=== PATIENT | male | born 1940 | race Caucasian/White ===

== ENCOUNTER 2020-07-20 | Outpatient (REF) | payer MEDICARE, OTHER, SELFPAY | END 2020-07-20 00:01 | disposition home or self-care (01) | LOC: HO.HMGCLNP | PROVIDERS: Visit Provider Internal Medicine | DX: R30.0 Dysuria (principal) | CPT/HCPCS: 87086 ==

== ENCOUNTER 2020-07-31 13:26 | Outpatient (REF) | payer MEDICARE, OTHER, SELFPAY | END 2020-07-31 13:27 | disposition home or self-care (01) | LOC: HO.HMGCLNP 13:26 | PROVIDERS: Visit Provider Internal Medicine | DX: R35.0 Frequency of micturition (principal); R30.0 Dysuria | CPT/HCPCS: 87086; 87088; 87186 ==

== ENCOUNTER 2020-08-09 08:56 | Outpatient (REF) | payer MEDICARE, OTHER, SELFPAY ==
--- NOTE | 2020-08-09 08:59 | US_ITS ---
EXAMINATION: US RETROPERITONEAL COMPLETE (RENAL) CLINICAL INFORMATION: Question air in urine stream, PVR. COMPARISON: CT abdomen and pelvis 07/02/2011. TECHNIQUE: Real-time imaging of the kidneys and bladder. FINDINGS: RIGHT KIDNEY: 12.4 x 6.0 x 6.3 cm (SAG x AP x TRV). The kidney is normal in size, contour, and echogenicity. Renal cortical thickness is normal. There are multiple right renal cysts, largest measuring 9.1 x 7.8 x 8.3 cm in the upper pole. No renal calculi or hydronephrosis. LEFT KIDNEY: 11.9 x 5.7 x 6.5 cm (SAG x AP x TRV). The kidney is normal in size, contour, and echogenicity. Renal cortical thickness is normal. There are 2 left renal cysts. The largest measures 8.7 x 6.9 x 8.1 cm in the lower pole. There is a 1.0 cm cyst in the midpole. No renal calculi or hydronephrosis. BLADDER: The bladder wall is diffusely thickened and trabeculated. There are multiple echogenic reflectors seen in the lumen of the bladder suggestive of debris. Bilateral ureteral jets are demonstrated. Prevoid bladder volume is 138 mL. Postvoid bladder volume is 58.7 mL. The prostate gland is enlarged. The prostate gland measures 5.3 x 5.1 x 4.7 cm. Prostate volume 66.1 mL. US/US retroperitoneal comp IMPRESSION: 1. Multiple bilateral renal cysts, right greater than left. 2. Diffusely thickened trabeculated bladder wall. Mobile echogenic reflectors in the bladder questionable for mobile echogenic debris. No stone or mass seen. 59 mL postvoid bladder residual. Enlarged prostate gland.
== END 2020-08-09 08:57 | disposition home or self-care (01) ==
LOC: HO.HMGCX 08:56
PROVIDERS: PCP Internal Medicine; Visit Provider Internal Medicine
DX: R39.89 Other symptoms and signs involving the genitourinary system (principal); N28.89 Other specified disorders of kidney and ureter
CPT/HCPCS: 76770

== ENCOUNTER 2020-08-10 15:19 | Outpatient (REF) | payer MEDICARE, OTHER, SELFPAY ==
[2020-08-10 16:42] LABS: Glucose Urine UA NEG (NEG); Leukocyte Esterase Urine 1+ (NEG); Nitrite Urine NEG (NEG); PH 5.5 (5.0-8.0); Specific Gravity - Urine >= 1.030 (1.005-1.025); Urine Blood 3+ (NEG); Urine Ketones NEG (NEG); Urine Protein 1+ MG/DL (NEG-TRACE)
[2020-08-10 16:48] LABS: Appearance Urine TURBID; Color Urine YELLOW
[2020-08-10 17:11] LABS: Bacteria Urine 3+ /LPF; Squamous Epithelial Cell Urine TRACE /LPF; Uric Acid Crystals Urine 1+ /LPF
== END 2020-08-10 15:20 | disposition home or self-care (01) ==
LOC: HO.HMGCLNP 15:19
PROVIDERS: Visit Provider Internal Medicine
DX: N39.0 Urinary tract infection, site not specified (principal)
CPT/HCPCS: 81001; 87086

== ENCOUNTER 2021-06-08 13:19 | Outpatient (REF) | payer MEDICARE, OTHER, SELFPAY ==
[2021-06-08 16:25] LABS: MANUAL DIFF FLAG NO
[2021-06-08 16:26] LABS: Basophils Absolute Auto 0.1 X10*3/uL (0.0-0.2); Basophils Percent Auto 0.5 % (0-2); Eosinophils Absolute Auto 0.1 X10*3/uL (0.0-0.4); Eosinophils Percent Auto 1.4 % (0-4); Hematocrit 40.9 % (42.0-52.0); Hemoglobin 13.3 g/dl (14.0-18.0); Imm Gran Abs Auto 0.03 X10*3/uL (0.00-0.03); Imm Gran Pct Auto 0.3 % (0.0-0.4); Lymphocytes Absolute Auto 1.4 X10*3/uL (1.2-4.9); Lymphocytes Percent Auto 14.9 % (20-40); Mean Corpuscular HGB Conc 32.5 g/dl (31.0-36.0); Mean Corpuscular Hemoglobin 30.4 pg (27.0-33.0); Mean Corpuscular Volume 93.4 fL (80.0-98.0); Mean Platelet Volume 9.9 fL (9.4-12.4); Monocytes Absolute Auto 0.7 X10*3/uL (0.1-1.2); Monocytes Percent Auto 7.4 % (2-11); Neutrophils Absolute Auto 6.9 x10*3/uL (2.0-8.3); Neutrophils Percent Auto 75.5 % (45-73); Platelet Count 290 X10*3/uL (160-400); Red Blood Count 4.38 X10*6/uL (4.60-5.80); Red Cell Distribution Width 13.7 % (11.0-16.0); White Blood Count 9.1 X10*3/uL (4.8-10.8)
[2021-06-08 16:44] LABS: Alanine Aminotransferase 15 U/L (0-40); Albumin Level 4.3 g/dL (3.5-5.0); Alkaline Phosphatase 85 U/L (39-117); Anion Gap 13 (12-20); Aspartate Amino Transferase 15 U/L (5-37); Bilirubin Total 0.3 mg/dL (0.0-1.0); Blood Urea Nitrogen 17 mg/dL (9-16); Calcium 10.7 mg/dL (8.4-10.2); Carbon Dioxide 25 mmol/L (22-29); Chloride 107 mmol/L (96-108); Cholesterol 213 mg/dL; Estimated Average Glucose 108 mg/dL; Estimated Glomerular Filt Rate 41; Glucose Fasting 93 mg/dL (60-99); HDL Cholesterol 42 mg/dL; Hemoglobin A1c % 5.4 %; LDL Cholesterol Calculated 120 mg/dl; Potassium 4.7 mmol/L (3.3-5.1); Sodium 140 mmol/L (135-145); Total Protein 6.9 g/dL (6.5-8.0); Triglycerides 255 mg/dL
[2021-06-08 17:15] LABS: Prostate Specific Antigen 7.97 ng/mL (<0.05-4.0)
== END 2021-06-08 13:20 | disposition home or self-care (01) ==
LOC: HO.HMGCLDS 13:19
PROVIDERS: PCP Internal Medicine; Visit Provider Internal Medicine
DX: Z12.5 Encounter for screening for malignant neoplasm of prostate (principal); R53.83 Other fatigue; E78.00 Pure hypercholesterolemia, unspecified
CPT/HCPCS: 36415; 80053; 80061; 83036; 84153; 85025

== ENCOUNTER → 2021-11-16 09:43 | Outpatient (BNVA) | payer MEDICARE, OTHER, SELFPAY | PROVIDERS: PCP Internal Medicine; Visit Provider Internal Medicine | DX: R82.71 Bacteriuria (principal) | CPT/HCPCS: 99202 ==

== ENCOUNTER 2022-04-08 10:04 | Outpatient (REF) | payer MEDICARE, OTHER, SELFPAY ==
[2022-04-08 11:17] LABS: MANUAL DIFF FLAG NO
[2022-04-08 11:34] LABS: Basophils Percent Auto 0.6 % (0-2); Eosinophils Absolute Auto 0.2 X10*3/uL (0.0-0.4); Eosinophils Percent Auto 2.4 % (0-4); Hematocrit 39.6 % (42.0-52.0); Hemoglobin 12.9 g/dl (14.0-18.0); Imm Gran Abs Auto 0.03 X10*3/uL (0.00-0.03); Imm Gran Pct Auto 0.4 % (0.0-0.4); Lymphocytes Absolute Auto 1.4 X10*3/uL (1.2-4.9); Lymphocytes Percent Auto 20.1 % (20-40); Mean Corpuscular HGB Conc 32.6 g/dl (31.0-36.0); Mean Corpuscular Hemoglobin 29.8 pg (27.0-33.0); Mean Corpuscular Volume 91.5 fL (80.0-98.0); Mean Platelet Volume 9.5 fL (9.4-12.4); Monocytes Absolute Auto 0.4 X10*3/uL (0.1-1.2); Monocytes Percent Auto 5.9 % (2-11); Neutrophils Percent Auto 70.6 % (45-73); Platelet Count 338 X10*3/uL (160-400); Red Blood Count 4.33 X10*6/uL (4.60-5.80); Red Cell Distribution Width 13.4 % (11.0-16.0); White Blood Count 7.1 X10*3/uL (4.8-10.8)
[2022-04-08 12:07] LABS: Alanine Aminotransferase 11 U/L (0-40); Albumin Level 4.1 g/dL (3.5-5.0); Alkaline Phosphatase 71 U/L (39-117); Anion Gap 14 (12-20); Aspartate Amino Transferase 12 U/L (5-37); Bilirubin Total 0.4 mg/dL (0.0-1.0); Blood Urea Nitrogen 15 mg/dL (9-16); Carbon Dioxide 23 mmol/L (22-29); Chloride 106 mmol/L (96-108); Cholesterol 193 mg/dL; Estimated Glomerular Filt Rate 51; Glucose Fasting 113 mg/dL (60-99); HDL Cholesterol 45 mg/dL; LDL Cholesterol Calculated 126 mg/dl; Potassium 4.3 mmol/L (3.3-5.1); Sodium 139 mmol/L (135-145); Total Protein 6.7 g/dL (6.5-8.0); Triglycerides 114 mg/dL
[2022-04-08 12:28] LABS: Calcium 10.5 mg/dL (8.4-10.2)
[2022-04-08 12:30] LABS: Prostate Specific Antigen 4.86 ng/mL (<0.05-4.0)
== END 2022-04-08 10:05 | disposition home or self-care (01) ==
LOC: HO.HMGCLDS 10:04
PROVIDERS: PCP Internal Medicine; Visit Provider Internal Medicine
DX: Z12.5 Encounter for screening for malignant neoplasm of prostate (principal); R53.83 Other fatigue; E78.00 Pure hypercholesterolemia, unspecified; D64.9 Anemia, unspecified; R97.20 Elevated prostate specific antigen [PSA]
CPT/HCPCS: 36415; 80053; 80061; 84153; 85025

== ENCOUNTER 2022-04-18 12:41 | Outpatient (REF) | payer MEDICARE, OTHER, SELFPAY ==
[2022-04-18 14:23] LABS: Estimated Average Glucose 108 mg/dL; Hemoglobin A1c % 5.4 %
== END 2022-04-18 12:42 | disposition home or self-care (01) ==
LOC: HO.HMGCLDS 12:41
PROVIDERS: PCP Internal Medicine; Visit Provider Internal Medicine
DX: E11.9 Type 2 diabetes mellitus without complications (principal)
CPT/HCPCS: 36415; 83036

== ENCOUNTER → 2022-05-17 11:24 | Outpatient (BNVA) | payer MEDICARE, OTHER, SELFPAY | PROVIDERS: PCP Internal Medicine; Visit Provider Internal Medicine | DX: R82.71 Bacteriuria (principal) | CPT/HCPCS: 99212 ==

== ENCOUNTER 2023-04-03 12:22 | Outpatient (REF) | payer MEDICARE, OTHER, SELFPAY ==
[2023-04-03 16:09] LABS: MANUAL DIFF FLAG NO
[2023-04-03 16:19] LABS: Basophils Absolute Auto 0.1 X10*3/uL (0.0-0.2); Basophils Percent Auto 0.9 % (0-2); Eosinophils Absolute Auto 0.3 X10*3/uL (0.0-0.4); Eosinophils Percent Auto 3.8 % (0-4); Hematocrit 41.5 % (42.0-52.0); Hemoglobin 13.2 g/dl (14.0-18.0); Imm Gran Abs Auto 0.03 X10*3/uL (0.00-0.03); Imm Gran Pct Auto 0.4 % (0.0-0.4); Lymphocytes Absolute Auto 1.5 X10*3/uL (1.2-4.9); Mean Corpuscular HGB Conc 31.8 g/dl (31.0-36.0); Mean Corpuscular Hemoglobin 29.7 pg (27.0-33.0); Mean Corpuscular Volume 93.5 fL (80.0-98.0); Mean Platelet Volume 10.9 fL (9.4-12.4); Monocytes Absolute Auto 0.4 X10*3/uL (0.1-1.2); Monocytes Percent Auto 5.9 % (2-11); Neutrophils Absolute Auto 4.7 x10*3/uL (2.0-8.3); Platelet Count 233 X10*3/uL (160-400); Red Blood Count 4.44 X10*6/uL (4.60-5.80); Red Cell Distribution Width 14.6 % (11.0-16.0); White Blood Count 6.9 X10*3/uL (4.8-10.8)
[2023-04-03 16:34] LABS: Alanine Aminotransferase 11 U/L (0-40); Albumin Level 4.2 g/dL (3.5-5.0); Alkaline Phosphatase 73 U/L (39-117); Anion Gap 12 (12-20); Aspartate Amino Transferase 16 U/L (5-37); Bilirubin Direct 0.1 mg/dL (0.0-0.5); Bilirubin Total 0.3 mg/dL (0.0-1.0); Blood Urea Nitrogen 17 mg/dL (9-16); Carbon Dioxide 24 mmol/L (22-29); Chloride 110 mmol/L (96-108); Cholesterol 219 mg/dL (<200); Estimated Glomerular Filt Rate 48; Glucose Fasting 109 mg/dL (60-99); HDL Cholesterol 50 mg/dL (>40); LDL Cholesterol Calculated 138 mg/dL (<100); Potassium 4.8 mmol/L (3.3-5.1); Sodium 141 mmol/L (135-145); Total Protein 7.2 g/dL (6.5-8.0); Triglycerides 155 mg/dL (<150)
[2023-04-03 16:47] LABS: Prostate Specific Antigen 4.88 ng/mL (<0.05-4.0)
== END 2023-04-03 12:23 | disposition home or self-care (01) ==
LOC: HO.HMGCLDS 12:22
PROVIDERS: PCP Internal Medicine; Visit Provider Internal Medicine
DX: Z12.5 Encounter for screening for malignant neoplasm of prostate (principal); R53.83 Other fatigue; E78.5 Hyperlipidemia, unspecified
CPT/HCPCS: 36415; 80051; 80061; 80076; 82565; 82947; 84153; 84520; 85025

== ENCOUNTER 2023-05-07 12:56 | Outpatient (AMB) | payer MEDICARE, OTHER, SELFPAY ==
--- NOTE | 2023-05-07 13:05 | MHC.OFFVIS ---
Intake Vital Signs 05/07/23 13:11 Height 5 ft 8 in Weight 172 lb BMI 26.1 BP 131/70 Blood Pressure Location Lt brachial Position Sitting Pulse 90 Pulse Source Pulse Oximeter Pulse Oximetry (%) 98 Intake Visit Reasons: 1 yr follow up chronic bacterunia Allergies lorazepam [From ATIVAN] Allergy (Unknown, Verified 05/07/23 13:12) CONFUSION Ativan Allergy (Unknown, Uncoded 12/12/11 00:00) aggitation HPI 1 yr follow up chronic bacterunia HPI Details I see him for recurrent UTI concerns. He has not had fever or hematuria. He has not had antibiotics for some time. He takes methenamine bid [facility] Medical History Chronic bacteriuria Review of Systems Const All systems reviewed & are unremarkable except as noted in HPI and below Physical Exam Vital Signs: Last Vital Signs Pulse 90 05/07/23 13:11 BP 131/70 05/07/23 13:11 Pulse Ox 98 05/07/23 13:11 BMI result Body Mass Index 26.1 Const General: cooperative Orientation/consciousness: patient oriented x3 HEENT Head: Yes normal to inspection Mouth: Normal oral and palatal mucosa present Eyes General: appearance normal, both eyes and all related structures Pupils: Equal, round and reactive pupils present Resp Effort & Inspection: normal respiratory effort Cardio Rate: regular rate Rhythm: regular rhythm GI Palpation (GI): Soft to palpation and nontender General: Yes no CVA tenderness Back/Spine/Pelvis Back: no CVA tenderness Skin General skin exam: no rashes or lesions noted Neuro General: patient oriented x3 Cranial nerves: Yes CN's II-XII intact bilaterally and Yes Equal, round and reactive pupils present Extrem General: Yes normal to inspection Psych Appearance: grossly normal Assessment & Plan Assessment & Plan (1) Chronic bacteriuria: Comment: He is taking methenamine. He needs refill for a year (given today). He is going to see Dr Roberts in August (frequency and ?colovesicular fistula). Code(s): R82.71 - Bacteriuria Plan: Continue Methenamine (written for). See in one year. Medications: Refilled methenamine hippurate 1 g PO BID 30 days 60 tabs 11RF methenamine hippurate 1 g PO BID 60 tabs 11RF 30 days Coding Level of Care Code Est Pt Level 3 (95760) Diagnoses Chronic bacteriuria R82.71
[2023-05-07 13:11] VITALS: BP 131/70; PULSE 90; O2SAT 98; BMI 26.1
== END 2023-05-07 14:14 | disposition home or self-care (01) ==
PROVIDERS: PCP Internal Medicine; Visit Provider Internal Medicine
DX: R82.71 Bacteriuria (principal)
CPT/HCPCS: 99213

== ENCOUNTER → 2023-05-07 12:56 | Outpatient (BNVA) | payer MEDICARE, OTHER, SELFPAY | PROVIDERS: Visit Provider Internal Medicine | DX: R82.71 Bacteriuria (principal) | CPT/HCPCS: 99212 ==

== ENCOUNTER 2023-08-15 13:20 | Outpatient (AMB) | payer MEDICARE, OTHER, SELFPAY ==
--- NOTE | 2023-08-15 13:28 | AM.OFFWIN_ITS ---
Intake Vital Signs 08/15/23 13:30 Height 5 ft 8 in Weight 173 lb BMI 26.3 BP 102/52 L Blood Pressure Location Lt brachial Position Sitting Pulse 86 Pulse Source Pulse Oximeter Temp 97.3 F Temp Source Oral Pulse Oximetry (%) 97 Oxygen Delivery Method Room Air Intake Visit Reasons: EP flush blocked ears Intake Note: Pt is here today c/o bilateral ear blocked Allergies lorazepam [From ATIVAN] Allergy (Unknown, Verified 08/15/23 13:31) CONFUSION Ativan Allergy (Unknown, Uncoded 08/15/23 13:31) aggitation Do you need a note to return to daycare/school/sports/work: No HPI HPI Comments History of Present Illness Details This is an 83-year-old male presenting to the walk-in clinic complainin g of blocked ears. Patient states his right ear has been feeling blocked for quite a while and he has been seen by his primary care physician multiple times but there has been no cerumen impaction. He states the right ear feels more blocked now and the left ear also feels partially blocked. Patient states he has an appointment at [facility] in about 1 month for ear wax removal. [facility] Medical History Chronic bacteriuria Review of Systems Const All systems reviewed & are unremarkable except as noted in HPI and below Reports no additional complaints Eyes Reports no additional complaints ENT Reports no additional complaints Card Reports no additional complaints Resp Reports no additional complaints GI Reports no additional complaints Reports no additional complaints Musc Reports no additional complaints Skin/Breast Reports system reviewed and no additional complaints, except as documented Neuro Reports no additional complaints Psych Reports no additional complaints Endo Reports no additional complaints Dejan/Lymph Reports no additional complaints Aller/Immun Reports no additional complaints Physical Exam Vital Signs: Last Vital Signs Temp 97.3 F 08/15/23 13:30 Pulse 86 08/15/23 13:30 BP 102/52 L 08/15/23 13:30 Pulse Ox 97 08/15/23 13:30 Oxygen Delivery Method Room Air 08/15/23 13:30 BMI result Body Mass Index 26.3 Const Other: Vital signs reviewed. Constitutional: Non-toxic appearing. No acute distress. Well-developed and well-nourished. HEENT: There is cerumen impacting the right ear but the cerumen is deep in the ear canal. There is excessive cerumen in the left ear but no impaction. Skin: Warm and dry. No rashes or lesions noted. Neck: Full and painless range of motion. No cervical lymphadenopathy. Cardio: Regular rate. No lower extremity edema. No JVD. Pulmonary: No respiratory distress. No accessory muscle usage. Gastrointestinal: Soft, nontender, and nondistended in all 4 quadrants. Musculoskeletal: Normal range of motion in joints throughout the body. No deformity or other signs of injury. Neuro: Alert and oriented x4. Cranial nerves 2-12 grossly intact. No focal deficits appreciated. Psych: Normal mood and affect. Office Procedures Cerumen Removal From which ear canal was the cerumen removed: bilateral Removal: irrigation Notes: patient tolerated procedure well [id number] Irrigation/Lavage Assessment & Plan Assessment & Plan (1) Bilateral impacted cerumen: Code(s): H61.23 - Impacted cerumen, bilateral Plan: This is an 83-year-old male who presented to the walk-in clinic complaining of cerumen impaction bilaterally. On physical examination, there is cerumen impaction of the right ear but the cerumen is deep within the ear canal in the left ear has excessive cerumen without impaction. Cerumen removal was attempted via irrigation. He reports improvement in his left ear but his right ear still feels blocked as the cerumen is deep within the ear canal. Patient was instructed to use [id number] debrox to soften the cerumen in order to re- attempt cerumen removal. He states that he has a scheduled appointment at [facility] for cerumen removal in about 1 month. He was advised that he can follow-up here sooner if his symptoms become bothersome again. Trish ent verbalizes understanding and he is in agreement with the plan. Coding Level of Care Code Est Pt Level 3 (95265) Diagnoses Bilateral impacted cerumen H61.23 CPT Codes Office Procedure - CPT: 27956-Cfn Irrigation/Lavage ([id number])
[2023-08-15 13:30] VITALS: BP 102/52; PULSE 86; TEMP 36.3; O2SAT 97; BMI 26.3
== END 2023-08-15 13:59 | disposition home or self-care (01) ==
PROVIDERS: PCP Internal Medicine; Visit Provider Physician Assistant Medical
DX: H61.23 Impacted cerumen, bilateral (principal)
CPT/HCPCS: 69209; 99213

== ENCOUNTER 2023-08-25 10:12 | Outpatient (AMB) | payer MEDICARE, OTHER, SELFPAY ==
[2023-08-25 12:05] VITALS: BMI 26.3
--- NOTE | 2023-08-25 12:05 | AM.OFFWIN_ITS ---
Intake Vital Signs 08/25/23 12:05 Height 5 ft 8 in Weight 78.528 kg BMI 26.3 Intake Visit Reasons: EST/ear wax removal(lobby) Intake Note: pt is here for follow up on ear wax removal, completed eye drops Patient Tobacco Use Status: Never used Tobacco Allergies lorazepam [From ATIVAN] Allergy (Unknown, Verified 08/25/23 12:06) CONFUSION Ativan Allergy (Unknown, Uncoded 08/15/23 13:31) aggitation Do you need a note to return to daycare/school/sports/work: No HPI HPI Comments History of Present Illness Details 1209 83-year-old male history of cerumen impa ction presenting to the clinic with complaints that his ears feel like they are clogged up. It has been going on for awhile. Patient with history of recurrent cerumen impaction. He tells me it feels just like it. Denies headache, vision changes, dizziness, weakness, fevers, chills, neck pain, chest pain, shortness of breath. Physical exam bilateral cerumen impaction Successfully irrigated with water. Educated patient on diagnosis and treatment plan, answered all question, patient verbalizes understanding. At this time patient will be discharged home, advised to return with new or worsening symptoms. Educated on worrisome signs and symptoms and when to return. At this time I feel comfortable discharge home. [facility] Medical History Chronic bacteriuria Social History Patient Tobacco Use Status: Never used Tobacco Review of Systems Const All systems reviewed & are unremarkable except as noted in HPI and below Physical Exam Vital Signs: BMI result Body Mass Index 26.3 vss Appearance: Alert.? Oriented X3.? No acute distress.? Head: Normocephalic, atraumatic, no step-offs or deformities Eyes: Pupils equal, round and reactive to light.? ENT: Pharynx normal.? Neck: Normal inspection.? Neck supple.? CVS: Normal heart rate and rhythm.? Pulses normal.? Respiratory: No respiratory distress.? Breath sounds normal.? Abdomen: Soft and nontender.? Skin: Skin warm and dry.? Normal skin color.? Normal skin turgor.? Extremities: No lower extremity edema.? No calf ttp. 5/5 strength to bilateral upper and lower extremities Neuro: Oriented X 3.? No motor deficit.? No sensory deficit. CN 2-12 intact Assessment & Plan Assessment & Plan (1) Cerumen impaction: Code(s): H61.20 - Impacted cerumen, unspecified ear Plan Take your medications as prescribed. If you were prescribed antibiotics today, it is important that you take your medication to their entirety, do not skip any doses, do not finish them early. Follow-up with your primary care provider this week. Return to the emergency department with new or worsening symptoms. Such as fevers, chills, chest pain, shortness of breath, nausea, vomiting, dizziness, headache, vision changes, lethargy In case of emergency call 911 Coding Level of Care Code Est Pt Level 3 (53788) Diagnoses Cerumen impaction H61.20
== END 2023-08-25 13:58 | disposition home or self-care (01) ==
PROVIDERS: PCP Internal Medicine; Visit Provider Physician Assistant
DX: H61.23 Impacted cerumen, bilateral (principal)
CPT/HCPCS: 99213

== ENCOUNTER 2024-05-14 12:18 | Outpatient (REF) | payer MEDICARE, OTHER, SELFPAY ==
[2024-05-14 13:20] LABS: MANUAL DIFF FLAG NO
[2024-05-14 13:35] LABS: Basophils Absolute Auto 0.1 X10*3/uL (0.0-0.2); Basophils Percent Auto 0.7 % (0-2); Eosinophils Absolute Auto 0.1 X10*3/uL (0.0-0.4); Hematocrit 38.7 % (42.0-52.0); Hemoglobin 12.5 g/dl (14.0-18.0); Imm Gran Abs Auto 0.03 X10*3/uL (0.00-0.03); Imm Gran Pct Auto 0.4 % (0.0-0.4); Lymphocytes Absolute Auto 1.2 X10*3/uL (1.2-4.9); Lymphocytes Percent Auto 17.2 % (20-40); Mean Corpuscular HGB Conc 32.3 g/dl (31.0-36.0); Mean Corpuscular Hemoglobin 30.3 pg (27.0-33.0); Mean Corpuscular Volume 93.7 fL (80.0-98.0); Monocytes Absolute Auto 0.4 X10*3/uL (0.1-1.2); Monocytes Percent Auto 5.8 % (2-11); Neutrophils Absolute Auto 5.3 x10*3/uL (2.0-8.3); Neutrophils Percent Auto 73.9 % (45-73); Platelet Count 268 X10*3/uL (160-400); Red Blood Count 4.13 X10*6/uL (4.60-5.80); Red Cell Distribution Width 13.9 % (11.0-16.0); White Blood Count 7.1 X10*3/uL (4.8-10.8)
[2024-05-14 14:20] LABS: Alanine Aminotransferase 17 U/L (0-40); Albumin Level 4.2 g/dL (3.5-5.0); Alkaline Phosphatase 70 U/L (39-117); Aspartate Amino Transferase 19 U/L (5-37); Bilirubin Total 0.4 mg/dL (0.0-1.0); Blood Urea Nitrogen 15 mg/dL (9-16); Cholesterol 127 mg/dL (<200); Estimated Glomerular Filt Rate 46; Glucose Fasting 107 mg/dL (60-99); HDL Cholesterol 48 mg/dL (>40); LDL Cholesterol Calculated 58 mg/dL (<100); Total Protein 6.9 g/dL (6.5-8.0); Triglycerides 108 mg/dL (<150)
[2024-05-14 14:33] LABS: Anion Gap 11 (12-20); Carbon Dioxide 25 mmol/L (22-29); Chloride 109 mmol/L (96-108); Potassium 4.2 mmol/L (3.3-5.1); Sodium 141 mmol/L (135-145)
== END 2024-05-14 12:19 | disposition home or self-care (01) ==
LOC: HO.HMGCLDS 12:18
PROVIDERS: PCP Internal Medicine; Visit Provider Internal Medicine
DX: R53.83 Other fatigue (principal); Z12.5 Encounter for screening for malignant neoplasm of prostate; E78.5 Hyperlipidemia, unspecified
CPT/HCPCS: 36415; 80053; 80061; 84153; 85025

== ENCOUNTER 2024-06-14 14:32 | Outpatient (AMB) | payer MEDICARE, OTHER, SELFPAY ==
[2024-06-14 14:43] VITALS: PULSE 80; O2SAT 94; BMI 25.5
--- NOTE | 2024-06-14 14:43 | MHC.OFFVIS ---
Vital Signs 06/14/24 14:43 Height 5 ft 8 in Weight 168 lb BMI 25.5 Pulse 80 Pulse Source Pulse Oximeter Pulse Oximetry (%) 94 Intake Visit Reasons: follow up 1 year med Allergies lorazepam [From ATIVAN] Allergy (Unknown, Verified 06/14/24 14:53) CONFUSION Ativan Allergy (Unknown, Uncoded 08/15/23 13:31) aggitation HPI HPI follow up 1 year med: Details: He is here for followup recurrent UTIs. He says he hasnt had any recent UTIs. He takes methenamine 1 g bid daily and denies any problems. PFSH Medical History Chronic bacteriuria Social History Patient Tobacco Use Status: Never used Tobacco Review of Systems Const All systems reviewed & are unremarkable except as noted in HPI and below Physical Exam Vital Signs: Last Vital Signs Pulse 80 06/14/24 14:43 Pulse Ox 94 06/14/24 14:43 BMI result Body Mass Index 25.5 Const General: cooperative Orientation/consciousness: patient oriented x3 HEENT Head: Yes normal to inspection Mouth: Normal oral and palatal mucosa present Eyes General: appearance normal, both eyes and all related structures Pupils: Equal, round and reactive pupils present Resp Effort & Inspection: normal respiratory effort Cardio Rate: regular rate Rhythm: regular rhythm GI Palpation (GI): Soft to palpation and nontender General: Yes no CVA tenderness Back/Spine/Pelvis Back: no CVA tenderness Skin General skin exam: no rashes or lesions noted Neuro General: patient oriented x3 Cranial nerves: Yes CN's II-XII intact bilaterally and Yes Equal, round and reactive pupils present Extrem General: Yes normal to inspection Psych Appearance: grossly normal Assessment & Plan Assessment & Plan (1) Chronic bacteriuria: Comment: He is taking methenamine. He needs refill for a year (given today). Code(s): R82.71 - Bacteriuria Category: Medical Plan: See us next year. Medications: New methenamine hippurate 1 g PO BID 60 tabs 11RF 30 days Coding Level of Care Code Est Pt Level 3 (02950) Diagnoses Chronic bacteriuria R82.71
== END 2024-06-14 15:08 | disposition home or self-care (01) ==
PROVIDERS: PCP Internal Medicine; Visit Provider Internal Medicine
DX: R82.71 Bacteriuria (principal)
CPT/HCPCS: 99213

== ENCOUNTER → 2024-06-14 14:32 | Outpatient (BNVA) | payer MEDICARE, OTHER, SELFPAY | PROVIDERS: PCP Internal Medicine; Visit Provider Internal Medicine | DX: R82.71 Bacteriuria (principal) | CPT/HCPCS: 99212 ==

== ENCOUNTER 2024-08-16 10:37 | Outpatient (REF) | payer MEDICARE, OTHER, SELFPAY ==
[2024-08-16 14:09] LABS: PSA,Total (Free>4and<10) 4.63 ng/mL (0.00-4.00)
[2024-08-18 12:44] LABS: Free Prostate Spec Ag 1.5 ng/mL; Percent Free Prostate Spec Ag 35 % (calc) (>25); Prostate Specific Ag Total 4.3 ng/mL (< OR = 4.0)
== END 2024-08-16 10:38 | disposition home or self-care (01) ==
LOC: HO.HMGCLDS 10:37
PROVIDERS: PCP Internal Medicine; Visit Provider Internal Medicine
DX: R97.20 Elevated prostate specific antigen [PSA] (principal); Z12.5 Encounter for screening for malignant neoplasm of prostate
CPT/HCPCS: 36415; 84153; 84154

== ENCOUNTER 2024-10-25 13:56 | Outpatient (REF) | payer MEDICARE, OTHER, SELFPAY ==
[2024-10-25 17:14] LABS: Urine Cytology See Pathology rpt
== END 2024-10-25 13:57 | disposition home or self-care (01) ==
LOC: HO.LAB 13:56
PROVIDERS: PCP Internal Medicine; Visit Provider Nurse Practitioner Family
DX: R82.71 Bacteriuria (principal); N39.0 Urinary tract infection, site not specified; R97.20 Elevated prostate specific antigen [PSA]; R39.9 Unspecified symptoms and signs involving the genitourinary system; N32.1 Vesicointestinal fistula
CPT/HCPCS: 81003; 88112; 99202

== ENCOUNTER 2024-10-25 13:56 | Outpatient (AMB) | payer MEDICARE, OTHER, SELFPAY ==
--- NOTE | 2024-10-25 14:01 | MHC.OFFVIS ---
Intake Visit Reasons: elevated PSA Intake Note: Pt presents to the office today for a new patient visit for elevated PSA. Allergies lorazepam [From ATIVAN] Allergy (Unknown, Verified 10/25/24 20:30) CONFUSION Ativan Allergy (Unknown, Uncoded 10/25/24 20:30) aggitation Medication List - Last Reconciled 10/25/24 by Kay Pastrana MEDICAL RECORDS CUSTODIAN- ascorbic acid (vitamin C) 1 g PO DAILY 90 days aspirin 81 mg PO DAILY atorvastatin mg PO cholecalciferol (vitamin D3) 10 mcg PO DAILY duloxetine 60 mg PO DAILY finasteride 5 mg PO DAILY 90 days lorazepam 0.5 mg PO DAILY PRN mecobalamin (vitamin B12) 1,000 mcg PO DAILY methenamine hippurate 1 g PO BID 30 days pantoprazole 40 mg PO DAILY risperidone 0.5 mg PO DAILY HPI Comments Details: Jaya is a pleasant 84-year-old male patient of Dr. Ruiz. He has a past medical history of vesicolorectal fistula, recurrent urinary tract infections, anxiety, depression, and GERD. He presents to the office today as a new patient to establish urology care. In discussion with the patient today he reports previously following up with [facility] Dr. Saavedra for ongoing lower urinary tract symptoms, elevated PSA, and recurrent urinary tract infections. He discusses having been diagnosed with vesicolorectal fistula at which time recommendations were made for referral to general surgeon Dr. Briggs. However upon discussion for further treatment options of vesicolorectal fistula patient was not a surgical candidate and he did not wish to undergo surgical intervention. He also reports having had a previous prostate biopsy and cystoscopy in the past. He discusses following up with Dr. [facility] here at [facility] for recurrent urinary tract infections and has been on methenamine and feels this has been extremely helpful in recurrent urinary tract infections he had been experiencing. He reports having had no urinary tract infections and or UTI like symptoms in many years. In review of patient's chart it appears patient on methenamine however is not on vitamin-C we also discussed oxybutynin and BEERS criteria. In office urinalysis results reviewed with the patient today positive nitrates however patient denies any UTI like symptoms. Likely colonization. PSAs are as follows 12/06 3.6, 02/06 4.2, 05/13 6.0, 08/14 4.6 % free PSA 35% We discussed potential causes of recurrent urinary tract infections as well as elevated PSA. He currently denies any bothersome urinary issues or concerns. However, he does feel lower urinary tract symptoms fluctuate and are variable. He denies urinary urgency, urinary frequency, incontinence, nocturia, hematuria, dysuria, foul smelling urine, changes to urinary stream, flank pain, fever, and or chills. We discussed obtaining medical release form to obtain previous urology records for continuity of care. All questions were answered. BOBBI offered however deferred. When asked he denies any known family history of prostate cancer. PCPT risk calculator results reviewed with the patient today 85% chance that prostate biopsy is negative for prostate cancer, 9% chance of low-grade prostate cancer, and 6% chance of high-grade prostate cancer. He otherwise offers no other issues or concerns at this time. Plan I plan to optimize management for the patient's Benign Prostatic Hyperplasia and corresponding urinary symptoms by introducing finasteride while discontinuing oxybutynin due to age-related risks. Alongside continuing methenamine therapy, I will prescribe vitamin C to enhance its effectiveness. As past biopsy results showed elevated PSA without malignancy confirmation, and based on the patient's preference to avoid invasive treatment. Continued care will involve obtaining previous urological records for comprehensive understanding and a urine sample for full analysis, as well as potential symptom monitoring post any medication change. Patient was informed and verbally consented to the use of an ambient scribe for clinic note documentation during this visit. Discussion Notes I discussed with the patient the diagnosis of Benign Prostatic Hyperplasia, detailing management plans including the initiation of finasteride therapy to mitigate symptoms and address prostate enlargement directly. I explained the decision to cease oxybutynin owing to the patient's age, replaced by finasteride as a more suitable option. Methenamine's role in infection prophylaxis was reaffirmed, stressing the importance of concurrent vitamin C intake required for activation, with clarity provided on prescription logistics to ease financial burden. We considered the non-invasive alternatives due to avoidance of surgery, aligning with the patient's wishes. I informed him about the procedure to obtain prior medical records necessary for ongoing evaluation. We set anticipatory guidance on symptom assessment post-medication alteration and return precautions. A follow-up visit was recommended for comprehensive monitoring subsequent to these adjustments. [facility] Medical History Chronic bacteriuria Social History Patient Tobacco Use Status: Never used Tobacco Review of Systems Const All systems reviewed & are unremarkable except as noted in HPI and below Physical Exam Const General: cooperative, healthy appearing, comfortable, no acute distress, well developed, alert and awake Orientation/consciousness: patient oriented x3 Limitations: no limitations HEENT Head: Yes normal to inspection, Yes normocephalic and Yes atraumatic Ears: hearing grossly normal bilaterally Eyes General: appearance normal, both eyes and all related structures Neck Neck: Yes normal visual inspection and Yes trachea midline Chest Chest palpation & inspection: normal inspection of the chest Resp Effort & Inspection: normal respiratory effort and able to speak in complete sentences Cardio Rate: regular rate GI Inspection: Yes normal to inspection General: Yes no CVA tenderness Back/Spine/Pelvis Back: no CVA tenderness Skin General skin exam: no rashes or lesions noted Neuro General: patient oriented x3 Extrem General: Yes normal to inspection Psych Appearance: grossly normal and well kempt Mental Status: mental status grossly normal Speech and movement: Clear speech present and Pressured speech present (at times ) Affect: normal affect Attitude: cooperative Thought process: Normal thought process present Thought content: Normal thought content present Insight: Fair insight present (Psych) Judgement: Fair judgement present (Psych) Results AMB Urinalysis, Automated UA Leukoctes 125 Bee/uL Last Edit by Sara Jason CMA on 10/25/24 14:52 UA Nitrite Positive Last Edit by Sara Jason CMA on 10/25/24 14:52 UA Urobilinogen 0.2 mg/dL Last Edit by Sara Jason CMA on 10/25/24 14:52 UA Protein 15 mg/dL Last Edit by Sara Jason CMA on 10/25/24 14:52 UA pH 5.5 Last Edit by Sara Jason CMA on 10/25/24 14:52 UA Blood 25 Romaine/uL Last Edit by Sara Jason CMA on 10/25/24 14:52 UA Specific [place] 1.030 Last Edit by Sara Jason CMA on 10/25/24 14:52 UA Ketone Negative Last Edit by Sara Jason CMA on 10/25/24 14:52 UA Bilirubin 0 mg/dL Last Edit by Sara Jason CMA on 10/25/24 14:52 UA Glucose 0 mg/dL Last Edit by Sara Jason CMA on 10/25/24 14:52 Results Reviewed Results Reviewed: Laboratory Last Values Urine pH (Auto) 5.5 10/25/24 14:50 Specific [place] (Auto) 1.030 10/25/24 14:50 Urine Protein (Auto) 15 mg/dL 10/25/24 14:50 Glucose (UA)(Auto) 0 mg/dL 10/25/24 14:50 Urine Ketones (Auto) Negative 10/25/24 14:50 Urine Blood (Auto) 25 Romaine/uL 10/25/24 14:50 Urine Nitrite (Auto) Positive 10/25/24 14:50 Urine Bilirubin (Auto) 0 mg/dL 10/25/24 14:50 Urine Urobilinogen (Auto) 0.2 mg/dL 10/25/24 14:50 Leukocyte Esterase (Auto) 125 Bee/uL 10/25/24 14:50 Assessment & Plan Assessment & Plan (1) Chronic bacteriuria: Comment: He is taking methenamine. He needs refill for a year (given today). Code(s): R82.71 - Bacteriuria Category: Medical (2) Recurrent urinary tract infection: Code(s): N39.0 - Urinary tract infection, site not specified Category: Medical (3) Elevated PSA: Code(s): R97.20 - Elevated prostate specific antigen [PSA] Category: Medical (4) Lower urinary tract symptoms: Code(s): R39.9 - Unspecified symptoms and signs involving the genitourinary system Category: Medical (5) Vesicorectal fistula: Code(s): N32.1 - Vesicointestinal fistula Category: Medical Plan In office urinalysis results reviewed with the patient today; as noted above; will send for urine cytology. Continue methenamine. Start vitamin C as discussed and prescribed. Start finasteride as discussed and prescribed. We discussed at length potential causes of lower urinary tract symptoms, recurrent urinary tract infections, and elevated PSA; we discussed further treatment options and risks and benefits of these treatment options. We discussed if signing medical release form to obtain previous urology records for continuity of care. We discussed bladder triggers/irritants. Discussed attempting to avoid constipation and maintain moderate hydration, avoiding excessive fluid intake. Will obtain retroperitoneal ultrasound for further assessment evaluation. Will obtain redraw of PSA in 3 months. Follow-up in 3 months with imaging, PSA, and PVR; or sooner with any issues, concerns, and or questions. Orders: Orders US retroperitoneal comp Today N32.1 - Vesicointestinal fistula, N39.0 - Urinary tract infection, site not specified, R39.9 - Unspecified symptoms and signs involving the genitourinary system, R97.20 - Elevated prostate specific antigen [PSA] PSA,Total (Free>4and<10) 2 Months R97.20 - Elevated prostate specific antigen [PSA] AMB Urinalysis Automated Today R82.71 - Bacteriuria Urine Cytology Today R82.71 - Bacteriuria Medications: New ascorbic acid (vitamin C) 1 g PO DAILY 90 days 90 tabs 1RF N39.0 - Urinary tract infection, site not specified finasteride 5 mg PO DAILY 90 days 90 tabs 1RF N32.0 - Bladder-neck obstruction Patient Instructions: The patient had an opportunity to ask questions regarding the treatment plan. All questions were answered. Physical exam, labs, and imaging were discussed and reviewed in detail. As well as risks, benefits, and discussion of treatment choices. No major barriers to understanding were identified. The patient expressed understanding and agreement with the above treatment plan. The patient was made aware they should contact our office by phone for worsening of their current condition, the appearance of new symptoms, or with any questions or concerns. Compliance is encouraged with any medications and follow up testing that is ordered. It is a privilege to be allowed the opportunity to participate in? your urological care.? Again, if you have any questions or concerns If you have any questions or concerns please do not hesitate to contact me. The office is [phone]. This note is constructed using voice recognition software. While every effort has been made to ensure accuracy loom doffer errors may have been included. Yours sincerely, WADE Philippe Coding Level of Care Code New Pt Level 4 (83123) Diagnoses Chronic bacteriuria R82.71 Recurrent urinary tract infection N39.0 Elevated PSA R97.20 Lower urinary tract symptoms R39.9 Vesicorectal fistula N32.1
== END 2024-10-25 14:48 | disposition home or self-care (01) ==
LOC: HO.HUSH 13:56
PROVIDERS: PCP Internal Medicine; Visit Provider Nurse Practitioner Family
DX: R82.71 Bacteriuria (principal); N39.0 Urinary tract infection, site not specified; R97.20 Elevated prostate specific antigen [PSA]; R39.9 Unspecified symptoms and signs involving the genitourinary system; N32.1 Vesicointestinal fistula
CPT/HCPCS: 99204

== ENCOUNTER 2025-01-07 12:55 | Outpatient (REF) | payer MEDICARE, OTHER, SELFPAY ==
--- NOTE | ~2025-01-07 | US_ITS ---
EXAMINATION: US RETROPERITONEAL COMPLETE (RENAL) CLINICAL INFORMATION: Lower urinary tract infections, recurrent. Elevated PSA.. COMPARISON: August 09, 2020. TECHNIQUE: Real-time imaging of the kidneys and bladder. FINDINGS: RIGHT KIDNEY: 12 x 5 x 5 cm (SAG x AP x TRV). Normal echotexture. Normal renal cortical thickness. No hydronephrosis. There are multiple, different sizes, round and ovoid shaped nonseptated anechoic lesions, the largest measures 8.3 cm. No nodular components. LEFT KIDNEY: 13 x 5 x 5 cm (SAG x AP x TRV). Normal echotexture. Normal renal cortical thickness. No hydronephrosis. Multiple, different sizes, well-defined, anechoic lesions throughout the parenchyma, the largest measures 1.5 cm. No nodular components or septations. BLADDER: Fluid-filled with the intraluminal hyperechoic lesions with posterior shadowing, the largest measures 2.4 cm. Bilateral ureteral jets are demonstrated. Prevoid bladder volume is 142 mL. Postvoid bladder volume is 39 mL. Prostate gland measures 6 x 5 x 6 cm with punctate calcifications. Volume: 98 cc. US/US retroperitoneal comp IMPRESSION: Bilateral simple renal cysts. No hydronephrosis. Multiple calculi, intraluminal bladder. Prostate gland volume: 98 cc.. Electronically signed by: Raphael Cadrenas MD 01/07/2025 03:40 PM EDT RP
== END 2025-01-07 12:56 | disposition home or self-care (01) ==
LOC: HO.HMGCX 12:55
PROVIDERS: PCP Internal Medicine; Visit Provider Nurse Practitioner Family
DX: N32.1 Vesicointestinal fistula (principal); R39.9 Unspecified symptoms and signs involving the genitourinary system; R97.20 Elevated prostate specific antigen [PSA]; N39.0 Urinary tract infection, site not specified
CPT/HCPCS: 76770

== ENCOUNTER → 2025-01-07 12:58 | Outpatient (BNV) | payer MEDICARE, OTHER, SELFPAY | PROVIDERS: PCP Internal Medicine; Visit Provider Radiology Diagnostic Radiology | DX: N28.1 Cyst of kidney, acquired (principal); N20.0 Calculus of kidney | CPT/HCPCS: 76770 ==

== ENCOUNTER 2025-01-25 09:08 | Outpatient (REF) | payer MEDICARE, OTHER, SELFPAY ==
[2025-01-25 11:59] LABS: PSA,Total (Free>4and<10) 2.34 ng/mL (0.00-4.00)
== END 2025-01-25 09:09 | disposition home or self-care (01) ==
LOC: HO.HMGCLDS 09:08
PROVIDERS: PCP Internal Medicine; Visit Provider Nurse Practitioner Family
DX: N32.1 Vesicointestinal fistula (principal); N39.0 Urinary tract infection, site not specified; R97.20 Elevated prostate specific antigen [PSA]; R39.9 Unspecified symptoms and signs involving the genitourinary system; R82.71 Bacteriuria; Z13.89 Encounter for screening for other disorder; Z12.5 Encounter for screening for malignant neoplasm of prostate; Z79.82 Long term (current) use of aspirin; Z79.899 Other long term (current) drug therapy
CPT/HCPCS: 36415; 51798; 81003; 84153; 99212

== ENCOUNTER 2025-01-25 14:26 | Outpatient (AMB) | payer MEDICARE, OTHER, SELFPAY ==
--- NOTE | 2025-01-25 14:49 | MHC.OFFVIS ---
Intake Visit Reasons: 3m/PVR Intake Note: Patient presents today for a 3m/PVR Urology Medication:Finasteride, Methenamine Hippurate, Solifenacin Blood Thinner:Aspirin Antibiotic Allergies:None PVR:0ml Allergies lorazepam (From ATIVAN) Allergy (Unknown, Verified 01/25/25 15:29) CONFUSION Ativan Allergy (Unknown, Uncoded 01/25/25 15:29) aggitation Medication List - Last Reconciled 01/25/25 by JASON Philippe- aspirin 81 mg PO DAILY duloxetine 60 mg PO DAILY finasteride 5 mg PO DAILY 90 days lorazepam 0.5 mg PO DAILY PRN methenamine hippurate 1 g PO BID 30 days mirtazapine mg PO pantoprazole 40 mg PO DAILY risperidone 0.5 mg PO DAILY solifenacin 5 mg PO DAILY 90 days HPI Comments Details: Jaya is a pleasant 84-year-old male patient of Dr. Ruiz who was accompanied by his son at today's office visit. He has a past medical history of vesicolorectal fistula, recurrent urinary tract infections, anxiety, depression, and GERD. He presents to the office today for follow-up of his ongoing urological issues. In discussion with the patient today he reports feeling low-dose VESIcare has been helpful with episodes of urinary urgency and frequency he had been experiencing. He is requesting a refill. He reports compliance with finasteride, methenamine, and vitamin-C as prescribed. Currently denies any UTI like symptoms. He does have a longstanding urological history in previously followed up with [facility] Dr. Saavedra for ongoing lower urinary tract symptoms, elevated PSA, and recurrent urinary tract infections. He discusses having been diagnosed with vesicolorectal fistula at which time recommendations were made for referral to general surgeon Dr. Briggs. However upon discussion for further treatment options of vesicolorectal fistula patient was not a surgical candidate and he did not wish to undergo surgical intervention. He also reports having had a previous prostate biopsy and cystoscopy in the past. He discusses following up with Dr. [facility] here at [facility] for recurrent urinary tract infections and has been on methenamine and feels this has been extremely helpful in recurrent urinary tract infections he had been experiencing. He reports having had no urinary tract infections and or UTI like symptoms in many years. In office urinalysis results reviewed with the patient today positive nitrates however patient denies any UTI like symptoms. Likely colonization. PVR 0 mL. Recent PSA results reviewed with the patient today as noted and trended below: 12/06 3.6, 02/06 4.2, 05/13 6.0, 08/14 4.6 % free PSA 35%, 01/12 2.3 We discussed potential causes of recurrent urinary tract infections as well as elevated PSA. We discussed significant decrease in PSA over the last 5 months. Will continue with surveillance monitoring. He currently denies any bothersome urinary issues or concerns. However, he does feel lower urinary tract symptoms fluctuate and are variable. We did discussed further treatment options of vesicolorectal fistula. He denies urinary urgency, urinary frequency, incontinence, nocturia, hematuria, dysuria, foul smelling urine, changes to urinary stream, flank pain, fever, and or chills. He otherwise offers no other issues or concerns at this time. [facility] Medical History Chronic bacteriuria Social History Patient Tobacco Use Status: Never used Tobacco Review of Systems Const All systems reviewed & are unremarkable except as noted in HPI and below Physical Exam Const General: cooperative, healthy appearing, comfortable, no acute distress, well developed, alert and awake Orientation/consciousness: patient oriented x3 Limitations: no limitations HEENT Head: Yes normal to inspection, Yes normocephalic and Yes atraumatic Ears: hearing grossly normal bilaterally Eyes General: appearance normal, both eyes and all related structures Neck Neck: Yes normal visual inspection and Yes trachea midline Chest Chest palpation & inspection: normal inspection of the chest Resp Effort & Inspection: normal respiratory effort and able to speak in complete sentences Cardio Rate: regular rate GI Inspection: Yes normal to inspection General: Yes no CVA tenderness Back/Spine/Pelvis Back: no CVA tenderness Skin General skin exam: no rashes or lesions noted Neuro General: patient oriented x3 Extrem General: Yes normal to inspection Psych Appearance: grossly normal and well kempt Mental Status: mental status grossly normal Speech and movement: Clear speech present and Pressured speech present (at times ) Affect: normal affect Attitude: cooperative Thought process: Normal thought process present Thought content: Normal thought content present Insight: Fair insight present (Psych) Judgement: Fair judgement present (Psych) Assessment & Plan Assessment & Plan (1) Vesicorectal fistula: Code(s): N32.1 - Vesicointestinal fistula Category: Medical (2) Recurrent urinary tract infection: Code(s): N39.0 - Urinary tract infection, site not specified Category: Medical (3) Elevated PSA: Code(s): R97.20 - Elevated prostate specific antigen [PSA] Category: Medical (4) Lower urinary tract symptoms: Code(s): R39.9 - Unspecified symptoms and signs involving the genitourinary system Category: Medical (5) Chronic bacteriuria: Comment: He is taking methenamine. He needs refill for a year (given today). Code(s): R82.71 - Bacteriuria Category: Medical Plan In office urinalysis results reviewed with the patient today; as noted above. PVR 0 mL. Recent PSA results reviewed with the patient today; as noted above; will continue with surveillance monitoring Continue urological medications; methenamine, vitamin-C, finasteride, and VESIcare; refill provided as requested. He currently denies any bothersome urinary issues or concerns. He reports be happy with current voiding parameters. We did discuss further treatment options and risks and benefits of these treatment options Follow-up next available with Dr. Roberts to discuss further treatment options; or sooner with any issues, concerns, and or questions. Medications: Changed From solifenacin 5 mg PO DAILY 30 tabs 1RF To solifenacin 5 mg PO DAILY 90 tabs 1RF 90 days Patient Instructions: The patient had an opportunity to ask questions regarding the treatment plan. All questions were answered. Physical exam, labs, and imaging were discussed and reviewed in detail. As well as risks, benefits, and discussion of treatment choices. No major barriers to understanding were identified. The patient expressed understanding and agreement with the above treatment plan. The patient was made aware they should contact our office by phone for worsening of their current condition, the appearance of new symptoms, or with any questions or concerns. Compliance is encouraged with any medications and follow up testing that is ordered. It is a privilege to be allowed the opportunity to participate in? your urological care.? Again, if you have any questions or concerns If you have any questions or concerns please do not hesitate to contact me. The office is [phone]. This note is constructed using voice recognition software. While every effort has been made to ensure accuracy dentist attendant errors may have been included. Yours sincerely, WADE Philippe Coding Level of Care Code Est Pt Level 3 (30895) Complex EM visit Add On G2211 Diagnoses Vesicorectal fistula N32.1 Recurrent urinary tract infection N39.0 Elevated PSA R97.20 Lower urinary tract symptoms R39.9 Chronic bacteriuria R82.71
== END 2025-01-25 15:31 | disposition home or self-care (01) ==
LOC: HO.HUSH 14:27
PROVIDERS: PCP Internal Medicine; Visit Provider Nurse Practitioner Family
DX: N32.1 Vesicointestinal fistula (principal); N39.0 Urinary tract infection, site not specified; R97.20 Elevated prostate specific antigen [PSA]; R39.9 Unspecified symptoms and signs involving the genitourinary system; R82.71 Bacteriuria; Z13.9 Encounter for screening, unspecified
CPT/HCPCS: 99213; G2211

== ENCOUNTER 2025-03-04 10:34 | Outpatient (AMB) | payer MEDICARE, OTHER, SELFPAY ==
--- OUTSIDE RECORDS SUMMARY | 2025-03-04 10:40 | XMS_ITS | Clinical Summary ---
Author Organization [facility] Address [address] [place], [place] [id number] Phone Care Team Providers Care Pharmacy District Manager Name Role Phone Liam Ruiz MD Primary Care Provider [phone] Social History Tobacco Use Types Packs/Day Years Used Date Smoking Tobacco: Never Assessed Education Answer Date Recorded Are you interested in more education? Not on donna e 11/15/2022 Are you concerned about learning? Not on file 11/15/2022 No 11/15/2022 No 11/15/2022 Digital Access Answer Date Recorded No 12/14/2022 No 12/14/2022 No 12/14/2022 Reliable internet access at home? Not on file 12/14/2022 Device with a working camera? Not on file Sex and Gender Information Value Date Recorded Sex Assigned at Not on file Legal Sex Male 10:06 AM EDT Gender Identity Not on file Sexual Orientation Not on file Plan of Treatment Health Maintenance Due Date Last Done Comments Adult Td,Tdap Booster 1940 DEPRESSION SCREENING 1953 RSV VACCINE (1 - 1-dose 75+ series) 2016 ZOSTER VACCINES (2 of 2) 07/05/2019 05/10/2019 COVID-19 VACCINE (2023-2 5 season) 2024 09/14/2020, 08/24/2020 PNEUMOCOCCAL VACCINES (50+ years) Completed 05/07/2017, 05/13/2014 HEPATITIS A VACCINES Aged Out No long er eligible based on patient's age to complete this topic HIB VACCINES Aged Out No longer eligi ble based on patient's age to complete this topic MENINGOCOCCAL VACCINES (ACWY) Aged Out No longer eligible based on patient's age to complete this topic MENINGOCOCCAL VACCINES (B) Aged Out N o longer eligible based on patient's age to complete this topic Medical Devices Not on file Insurance MEDICARE PART A & B [facility] MEDICARE SUPPLEMENT MEDICARE PART A & B [facility] MEDICARE SUPPLEMENT MEDICARE PART A & B [facility] MEDICARE SUPPLEMENT MEDICARE PART A & B [facility] MEDICARE SUPPLEMENT MEDICARE PART A & B [employer] MEDICARE SUPPLEMENT MEDICARE PART A & B [employer]ARE SUPPLEMENT [facility] MEDICARE SUPPLEMENT MEDICARE PART A & B [employer] MEDICARE SUPPLEMENT MEDICARE PART A & B [employer] MEDICARE SUPPLEMENT Care Teams Pharmacy District Manager Relationship Specialty Start Date End Date Liam Ruiz MD [address] [place] [id number] PCP - General Internal Medicine 09/30/19 Additional Source Comments The information contained in this document represents components of the legal health record. It is not the complete legal health record.[facility]"
--- NOTE | 2025-03-04 10:43 | A.OFFVIS_ITS ---
Intake Visit Reasons: to discuss treatment options Intake Note: Patient presents today for: DISCUSS TREATMENT Urology Medication:Finasteride, Solifenacin Blood Thinner:Aspirin Take Away Attendant Required: No Accompanied by: Daughter Allergies lorazepam (From ATIVAN) Allergy (Unknown, Verified 03/04/25 10:45) CONFUSION Ativan Allergy (Unknown, Uncoded 03/04/25 10:45) aggitation HPI Comments Details: Jaya is a pleasant 84-year-old male patient of Dr. Ruiz who was accompanied by his son at today's office visit. He has a past medical history of vesicolorectal fistula, recurrent urinary tract infections, anxiety, depression, and GERD. He presents to the office today for follow-up of his ongoing urological issues. In discussion with the patient today he reports feeling low- dose VESIcare has been helpful with episodes of urinary urgency and frequency he had been experiencing. He is requesting a refill. He reports compliance with finasteride, methenamine, and vitamin-C as prescribed. Currently denies any UTI like symptoms. He does have a longstanding urological history in previously followed up with [facility] Dr. Saavedra for ongoing lower urinary tract symptoms, elevated PSA, and recurrent urinary tract infections. He discusses having been diagnosed with vesicolorectal fistula at which time recommendations were made for referral to general surgeon Dr. Briggs. However upon discussion for further treatment options of vesicolorectal fistula patient was not a surgical candidate and he did not wish to undergo surgical intervention. He also reports having had a previous prostate biopsy and cystoscopy in the past. He discusses following up with Dr. [facility] here at [facility] for recurrent urinary tract infections and has been on methenamine and feels this has been extremely helpful in recurrent urinary tract infections he had been experiencing. He reports having had no urinary tract infections and or UTI like symptoms in many years. In office urinalysis results reviewed with the patient today positive nitrates however patient denies any UTI like symptoms. Likely colonization. PVR 0 mL. Recent PSA results reviewed with the patient today as noted and trended below: 12/06 3.6, 02/06 4.2, 05/13 6.0, 08/14 4.6 % free PSA 35%, 01/12 2.3 We discussed potential causes of recurrent urinary tract infections as well as elevated PSA. We discussed significant decrease in PSA over the last 5 months. Will continue with surveillance monitoring. He currently denies any bothersome urinary issues or concerns. However, he does feel lower urinary tract symptoms fluctuate and are variable. We did discussed further treatment options of vesicolorectal fistula. He denies urinary urgency, urinary frequency, incontinence, nocturia, hematuria, dysuria, foul smelling urine, changes to urinary stream, flank pain, fever, and or chills. He otherwise offers no other issues or concerns at this time. [facility] Medical History Chronic bacteriuria Social History Patient Tobacco Use Status: Never used Tobacco Results AMB Urinalysis, Automated UA Leukoctes 500 Bee/uL Last Edit by RAN Quintanilla on 03/04/25 10:58 UA Nitrite Positive Last Edit by RAN Quintanilla on 03/04/25 10:58 UA Urobilinogen 0.2 mg/dL Last Edit by RAN Quintanilla on 03/04/25 10:5 8 UA Protein 30 mg/dL Last Edit by RAN Quintanilla on 03/04/25 10:58 UA pH 6.0 Last Edit by RNA Quintanilla on 03/04/25 10:58 UA Blood 80 Romaine/uL Last Edit by RAN Quintanilla on 03/04/25 10:58 UA Specific [place] 1.025 Last Edit by RAN Quintanilla on 03/04/25 10: 58 UA Ketone Negative Last Edit by RAN Quintanilla on 03/04/25 10:58 UA Bilirubin 0 mg/dL Last Edit by RAN Quintanilla on 03/04/25 10:58 UA Glucose 0 mg/dL Last Edit by RAN Quintanilla on 03/04/25 10:58 Results Reviewed Results Reviewed: Laboratory Last Values Urine pH (Auto) 6.0 03/04/25 10:57 Specific [place] (Auto) 1.025 03/04/25 10:57 Urine Protein (Auto) 30 mg/dL 03/04/25 10:57 Glucose (UA)(Auto) 0 mg/dL 03/04/25 10:57 Urine Ketones (Auto) Negative 03/04/25 10:57 Urine Blood (Auto) 80 Romaine/uL 03/04/25 10:57 Urine Nitrite (Auto) Positive 03/04/25 10:57 Urine Bilirubin (Auto) 0 mg/dL 03/04/25 10:57 Urine Urobilinogen (Auto) 0.2 mg/dL 03/04/25 10:57 Leukocyte Esterase (Auto) 500 Bee/uL 03/04/25 10:57 Assessment & Plan Assessment & Plan Orders: Orders AMB Urinalysis Automated Today Z13.9 - Encounter for screening, unspecified Coding
== END 2025-03-04 11:42 | disposition home or self-care (01) ==
LOC: HO.HUSH 10:35
PROVIDERS: PCP Internal Medicine; Visit Provider Urology
DX: Z13.9 Encounter for screening, unspecified (principal)

== ENCOUNTER → 2025-03-04 10:34 | Outpatient (BNVA) | payer MEDICARE, OTHER, SELFPAY | PROVIDERS: PCP Internal Medicine; Visit Provider Urology | DX: R82.71 Bacteriuria (principal); N39.0 Urinary tract infection, site not specified; R39.9 Unspecified symptoms and signs involving the genitourinary system; R97.20 Elevated prostate specific antigen [PSA] | CPT/HCPCS: 81003; 99212 ==

== ENCOUNTER 2025-04-18 09:27 | Outpatient (AMB) | payer MEDICARE, OTHER, SELFPAY ==
--- NOTE | 2025-04-18 09:29 | MHC.PC.OV ---
Vital Signs 04/18/25 09:33 Height 5 ft 8.74 in Weight 161 lb 4 oz BMI 24.0 Respiration 16 Pulse 80 Pulse Source Pulse Oximeter Temp 97.2 F Temp Source Temporal Artery Scan Pulse Oximetry (%) 98 Oxygen Delivery Method Room Air Intake Visit Reasons: Establish care - transfer of care from Dr. Ruiz Accompanied by: Self / Same As Patient Allergies No Known Allergies Allergy (Verified 04/18/25 09:52) Medication List - Last Reconciled 04/18/25 by Ericka Arreguin PA-C ascorbic acid (vitamin C) 1,000 mg PO DAILY 90 days aspirin 81 mg PO DAILY atorvastatin (Lipitor) 20 mg PO DAILY clotrimazole-betamethasone 1-0.05 % appl topical DAILY duloxetine 60 mg PO BID finasteride 5 mg PO DAILY 90 days lorazepam 0.5 mg PO DAILY PRN methenamine hippurate 1 g PO BID 90 days mirtazapine 45 mg PO pantoprazole 40 mg PO DAILY risperidone 0.5 mg PO DAILY solifenacin 5 mg PO DAILY 90 days trimethoprim 100 mg PO DAILY 90 days Tobacco use date assessed: 04/18/25 Fall risk assessment: No Falls in past year Last assessed Fall Risk: 04/18/25 Dental Screening Dental Screen Date: 04/18/25 Did you have a dental visit in the last 12 months?: No HPI Establish care - transfer of care from Dr. Ruiz HPI Details The patient is an 85-year-old male presenting for a new patient appointment and routine follow-up care. The patient has a history of anemia, identified in blood work from April of the previous year, and is due for further testing. Chronic kidney disease is present, with a GFR of 46 and creatinine level of 1.47, requiring regular monitoring. 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 An elevated PSA is noted, with no prostate cancer history, and a biopsy has been conducted. A persistent irregular scab on the left forehead has been present for three to four months, with a referral to dermatology for evaluation. Social History - Family Status: Lives with , who recently had bypass surgery. - Functional Status: No daily nursing care required, but assistance with housework once a week. [facility] Medical History (Updated 04/18/25 @ 10:12 by Ericka Arreguin PA-C) Chronic anemia CKD (chronic kidney disease) stage 3, GFR 30-59 ml/min Atypical pigmented skin lesion Chronic bacteriuria Family History Mother Hx of heart bypass surgery Father Throat cancer Social History Household Members: Spouse Housing: House Alcohol intake: former Patient Tobacco Use Status: Former Tobacco user service: Yes Current occupational status: retired Cognitive needs: No Hearing needs: No Vision needs: Yes (reading glases/cheaters) Questionnaire PHQ-9 Over the last 2 weeks, how often have you been bothered by any of the following problems? 1. Little interest or pleasure in doing things: not at all 2. Feeling down, depressed, or hopeless: not at all 3. Trouble falling or staying asleep, or sleeping too much: not at all 4. Feeling tired or having little energy: not at all 5. Poor appetite or overeating: not at all 6. Feeling bad about yourself - or that you are a failure or have let yourself or your family down: not at all 7. Trouble concentrating on things, such as reading the newspaper or watching television: not at all 8. Moving or speaking so slowly that other people could have noticed. Or the opposite - being so fidgety or restless that you have been moving around a lot more than usual: not at all 9. Thoughts that you would be better off or of hurting yourself in some way: not at all Total score: 0 Depression Screening Interpretation: Negative Depression Screening Done: Yes 41363 - PHQ-9 Billing: Yes Source: Developed by Drs. Israel Campos, Little Alonso, Gallito James and colleagues, with an educational patrizia from [employer]. Thrive Questionnaire Date Thrive assessed: 04/18/25 I am a: Patient What is your living situation today?: I have a steady place to live Within the past 12 months, did the food you bought not last and you didn't have the money to get more?: Never true Within the past 12 months, did you worry whether your food would run out before you got money to buy more?: Never true Do you have trouble paying for medicines?: No Do you have trouble getting transportation to medical appointments?: No Do you have trouble paying your heating and electricity bill?: No Do you have trouble taking care of your child, family member or friend?: No Do you have trouble with day-to-day activities such as bathing, preparing meals, shopping, managing finances, etc.?: No Are you currently unemployed and looking for a job?: No Are you interested in more education?: No Please select the resources that you would like help with: None THRIVE Score: 0 AUDIT C Alcohol Use Questionnaire (AUDIT-C) 1. How often do you have a drink containing alcohol?: Never Total Score: 0 Score Reviewed/Action Taken: No MADHAV-7 AMB Questionnaire MADHAV-7 Date MADHAV - 7 assessed: 04/18/25 Feeling nervous, anxious, or on edge: 0 = Not at all Not being able to stop or control worryin = Not at all Worrying too much about different things: 0 = Not at all Trouble relaxin = Not at all Being so restless that it is hard to sit still: 0 = Not at all Becoming easily annoyed or irritable: 0 = Not at all Feeling afraid as if something awful might happen: 0 = Not at all Total MADHAV-7 score (0-4 normal; 5-9 mild; 10-14 moderate; 15-21 severe): 0 Source: Developed by Drs. Israel Campos, Little Alonso, Gallito James and colleagues, with an educational patrizia from [employer]. MADHAV-7 Assessment Billing MADHAV-7 Assessment Tool: MADHAV-7 Assessment 16672 Review of Systems Const Details: - Genitourinary: Reports debris in urine due to colovesical fistula. - Dermatological: Reports persistent irregular scab on left forehead for three to four months. - General: Denies recent falls. All systems reviewed & are unremarkable except as noted in HPI and below Physical exam (Primary Care) Vital Signs: Last Vital Signs Temp 97.2 F 04/18/25 09:33 Pulse 80 04/18/25 09:33 Resp 16 04/18/25 09:33 Pulse Ox 98 04/18/25 09:33 Oxygen Delivery Method Room Air 04/18/25 09:33 Care Plan Goal for BP management: <140/90 at Goal BMI result Body Mass Index 24.0 Normal BMI Tobacco/Smoking Status: Tobacco use Status Tobacco use date assessed 04/18/25 04/18/25 09:31 Patient Tobacco Use Status Former Tobacco user 04/18/25 09:45 PHQ-9: PHQ-9 Score PHQ-9: Total score 0 04/18/25 09:47 Depression Screening Interpretation: Negative Thrive Assessment: Date of Thrive Assessment Date Thrive assessed 04/18/25 04/18/25 09:45 Const Other: Appearance: Alert. Oriented X3. No acute distress. Head: Normal external exam. Normocephalic. Atraumatic. Eyes: Pupils are equal, round, and reactive to light. Extraocular movements intact. Conjunctiva and sclera normal. Eyelids normal. Ears: External auditory canal normal. Tympanic membranes normal. Throat: Pharynx normal. Uvula midline. Moist mucous membranes. Neck: Normal inspection. Neck supple. Full range of motion. Cardiovascular: Normal heart rate and rhythm. Heart sound normal. No murmurs noted. Pulses normal throughout. Respiratory: No respiratory distress. Painless inspiration. Breath sounds normal. No wheezes/rales/rhonchi noted. Chest nontender. No accessory muscle usage noted or decreased air movement noted. Abdomen: Soft and nontender. No distention noted. No organomegaly noted. Back: No costovertebral angle tenderness. Full range of motion noted. Skin: Skin warm and dry. Normal skin color. Normal skin turgor. Irregular scab on the left forehead present for three to four months. No additional rashes/lesions/lacerations noted. Extremities: No lower extremity edema. Extremities exhibit normal range of motion. Neuro: Oriented X 3. No motor deficit. No sensory deficit. Reflexes normal. Office Procedures Flu Questionnaire Does the patient have a severe egg allergy?: No Does the patient have severe life threatening allergies?: No Does the patient have a fever or illness today?: No Has the patient ever had Guillain-Fallon Syndrome?: No Has the patient ever had any past reaction to a flu shot?: No Immunizations Fluarix [id number] (PF) 45 mcg (15 mcg x 3)/0.5 mL IM syringe Performing Provider: Ericka Arreguin PA-C Performing Location: [facility] Documented (not given) by: Ingrid Bella [facility] on 04/18/25 09:47 Reason Not Given: Received Previously Results Reviewed Results Reviewed: - Labs: Anemia noted in previous blood work from April last year. - Labs: Chronic kidney disease indicated by GFR of 46 and creatinine level of 1.47. Coding Level of Care Code New Pt Level 4 (41914) Complex EM visit Add On G2211 Diagnoses Chronic anemia D64.9 CKD (chronic kidney disease) stage 3, GFR 30-59 ml/min N18.30 Elevated PSA R97.20 Atypical pigmented skin lesion L81.9 Chronic bacteriuria R82.71 Vesicorectal fistula N32.1 Lower urinary tract symptoms R39.9 Recurrent urinary tract infection N39.0 Additional Codes PHQ-9 - 82958 - PHQ-9 Billing: Yes ([id number]) MADHAV-7 Assessment Billing - MADHAV-7 Assessment Tool: MADHAV-7 Assessment 67789 ([id number]) Assessment & Plan Assessment & Plan (1) Chronic anemia: Code(s): D64.9 - Anemia, unspecified Category: Medical Plan: Blood work will be conducted to reassess anemia status, as the last test was in April of the previous year. Condition is chronic will continue to monitor. (2) CKD (chronic kidney disease) stage 3, GFR 30-59 ml/min: Code(s): N18.30 - Chronic kidney disease, stage 3 unspecified Category: Medical Plan: Regular monitoring of chronic kidney disease will continue, focusing on GFR and creatinine levels. Will refer to nephrology. Condition is chronic and stable continue to monitor. (3) Elevated PSA: Code(s): R97.20 - Elevated prostate specific antigen [PSA] Category: Medical Plan: PSA levels will be monitored, with no current evidence of prostate cancer following a biopsy. Condition is chronic and stable continue to monitor. (4) Atypical pigmented skin lesion: Code(s): L81.9 - Disorder of pigmentation, unspecified Category: Medical Plan: A dermatology referral is made for biopsy of the irregular scab on the left forehead to rule out skin cancer. (5) Chronic bacteriuria: Comment: He is taking methenamine. He needs refill for a year (given today). Code(s): R82.71 - Bacteriuria Category: Medical Plan: Management of infections related to the colovesical fistula will continue under the care of an infectious disease specialist. (6) Vesicorectal fistula: Code(s): N32.1 - Vesicointestinal fistula Category: Medical Plan: Management of infections related to the colovesical fistula will continue under the care of an infectious disease specialist. (7) Lower urinary tract symptoms: Code(s): R39.9 - Unspecified symptoms and signs involving the genitourinary system Category: Medical Plan: Patient to continue following up with infectious disease and urology. (8) Recurrent urinary tract infection: Code(s): N39.0 - Urinary tract infection, site not specified Category: Medical Plan: Patient to continue following up with infectious disease and urology. Plan Plan Patient was informed and verbally consented to the use of an ambient scribe for clinic note documentation during this visit. 1. Anemia Blood work will be conducted to reassess anemia status, as the last test was in April of the previous year. 2. Chronic Kidney Disease Regular monitoring of chronic kidney disease will continue, focusing on GFR and creatinine levels. 3. Elevated Psa PSA levels will be monitored, with no current evidence of prostate cancer following a biopsy. 4. Possible Skin Cancer A dermatology referral is made for biopsy of the irregular scab on the left forehead to rule out skin cancer. 5. Colovesical Fistula Management of infections related to the colovesical fistula will continue under the care of an infectious disease specialist. During the visit, we discussed the need for updated blood work to monitor anemia and chronic kidney disease. The patient was informed about the referral to dermatology for the irregular scab on the forehead, and the importance of ruling out skin cancer was emphasized. We also reviewed the management of the colovesical fistula with the infectious disease specialist and the monitoring of PSA levels. Orders: Orders C Reactive Protein Today Z00.00 - Encounter for general adult medical examination without abnormal findings Liver Panel Today Z00.00 - Encounter for general adult medical examination without abnormal findings Lipid Panel Today Z00.00 - Encounter for general adult medical examination without abnormal findings Vitamin B12 and Folate Today Z00.00 - Encounter for general adult medical examination without abnormal findings TSH reflex Free T4 Today Z00.00 - Encounter for general adult medical examination without abnormal findings Influenza [id number] Immunization Today Z23 - Encounter for immunization Comprehensive [place]. Panel Fast Today Z00.00 - Encounter for general adult medical examination without abnormal findings Complete Blood Count Auto Diff Today Z00.00 - Encounter for general adult medical examination without abnormal findings Hemoglobin A1c Today Z00.00 - Encounter for general adult medical examination without abnormal findings Magnesium Today Z00.00 - Encounter for general adult medical examination without abnormal findings Vitamin D 25-OH Total Today Z00.00 - Encounter for general adult medical examination without abnormal findings PSA,Total (Free>4and<10) Today Z00.00 - Encounter for general adult medical examination without abnormal findings UA CC w/rflx Micro + Cult Today Z00.00 - Encounter for general adult medical examination without abnormal findings Referrals Dermatology Referral L81.9 - Disorder of pigmentation, unspecified Nephrology Referral N18.30 - Chronic kidney disease, stage 3 unspecified Medications: New clotrimazole-betamethasone 1-0.05 % 1 appl topical DAILY 45 grams 3RF Refilled atorvastatin (Lipitor) 20 mg PO DAILY 90 tabs 3RF Patient Instructions: - Schedule and complete blood work at the designated lab location. - Follow up with dermatology for evaluation of the forehead scab. - Continue monitoring PSA levels as advised. - Maintain regular appointments with the infectious disease specialist for colovesical fistula management.
[2025-04-18 09:33] VITALS: PULSE 80; RESP 16; TEMP 36.2; O2SAT 98; BMI 24.0
--- OUTSIDE RECORDS SUMMARY | 2025-04-18 10:15 | XMS_ITS | Clinical Summary ---
Author Organization [facility] Address [address] [place], [place] [id number] Phone Care Team Providers Care Platform Material Handling Supervisor Name Role Phone Liam Ruiz MD Primary Care Provider [phone] Social History Tobacco Use Types Packs/Day Years [...] ZOSTER VACCINES (2 of 2) 07/05/2019 05/10/2019 INFLUENZA VACCINE (#1) 2025 0, 04/05/2019, 04/16/2018, Additional history exists COVID-19 VACCINE (2024- season) 2025 09/14/2020, 08/24/2020 PNEUMOCOCCAL VACCINES (50+ years) Completed [...] Insurance MEDICARE PART A & B [facility] MEDICARE SUPPLEMENT [facility] Address: [place] [address] MEDICARE PART A & B [facility] MEDICARE SUPPLEMENT MEDICARE PART A & B [employer] MEDICARE SUPPLEMENT MEDICARE PART A & B [employer] MEDICARE SUPPLEMENT MEDICARE PART A & B [facility] MEDICARE SUPPLEMENT [facility] Address: [place] [address] MEDICARE PART A & B [facility] MEDICARE SUPPLEMENT MEDICARE PART A & B [facility] MEDICARE SUPPLEMENT MEDICARE PART A & B [employer] MEDICARE SUPPLEMENT MEDICARE PART A & B [facility] MEDICARE SUPPLEMENT Care Teams Platform Material Handling Supervisor Relationship Specialty Start Date End Date Liam Ruiz MD [address] [place] [id number] PCP - General Internal Medicine 09/30/19 Additional Source Comments The information contained in this document represents components of the legal health record. It is not the complete legal health record.[facility]
== END 2025-04-18 10:05 | disposition home or self-care (01) ==
LOC: HO.HMCSH 09:27
PROVIDERS: PCP Internal Medicine; Visit Provider Physician Assistant Medical
DX: D64.9 Anemia, unspecified (principal); N18.30 Chronic kidney disease, stage 3 unspecified; R97.20 Elevated prostate specific antigen [PSA]; L81.9 Disorder of pigmentation, unspecified; R82.71 Bacteriuria; N32.1 Vesicointestinal fistula; R39.9 Unspecified symptoms and signs involving the genitourinary system; N39.0 Urinary tract infection, site not specified; Z23 Encounter for immunization

== ENCOUNTER 2025-04-18 09:27 | Outpatient (REF) | payer MEDICARE, OTHER, SELFPAY ==
[2025-04-18 13:17] LABS: MANUAL DIFF FLAG NO
[2025-04-18 13:31] LABS: Hematocrit 39.6 % (42.0-52.0); Hemoglobin 12.9 g/dl (14.0-18.0); Imm Gran Abs Auto 0.02 X10*3/uL (0.00-0.03); Imm Gran Pct Auto 0.3 % (0.0-0.4); Lymphocytes Absolute Auto 1.2 X10*3/uL (1.2-4.9); Mean Corpuscular HGB Conc 32.6 g/dl (31.0-36.0); Mean Corpuscular Hemoglobin 30.4 pg (27.0-33.0); Mean Corpuscular Volume 93.4 fL (80.0-98.0); NRBC Abs Auto 0.000 X10*3/uL (0.0-0.012); NRBC Pct Auto 0.0 /100WBC (0.0-0.2); Platelet Count 243 X10*3/uL (160-400); Red Blood Count 4.24 X10*6/uL (4.60-5.80); White Blood Count 7.6 X10*3/uL (4.8-10.8)
[2025-04-18 13:59] LABS: Appearance Urine Cloudy; Glucose Urine UA Negative (Negative); PH 6.5 (5.0-9.0); Specific Gravity - Urine 1.020 (1.005-1.025); UMIC TRIGGER UACC YES
[2025-04-18 14:07] LABS: Alanine Aminotransferase 12 U/L (0-40); Albumin Level 4.5 g/dL (3.5-5.0); Alkaline Phosphatase 71 U/L (39-117); Anion Gap 12 (12-20); Aspartate Amino Transferase 21 U/L (5-37); Blood Urea Nitrogen 19 mg/dL (9-16); Calcium 11.0 mg/dL (8.4-10.2); Carbon Dioxide 23 mmol/L (22-29); Chloride 110 mmol/L (96-108); Cholesterol 204 mg/dL (<200); Estimated Glomerular Filt Rate 38; HDL Cholesterol 50 mg/dL (>40); Iron 72 mcg/dL (45-160); Magnesium 2.5 mg/dL (1.6-2.6); Percent Iron Saturation 25 % (15-50); Potassium 4.9 mmol/L (3.3-5.1); Sodium 140 mmol/L (135-145); Total Iron Binding Capacity 285 mcg/dL (228-428); Total Protein 7.1 g/dL (6.5-8.0); Triglycerides 128 mg/dL (<150); Unsaturated Iron Binding 213 ug/dL
[2025-04-18 14:13] LABS: Hemoglobin A1C 151.4942 umol/L; Total Hemoglobin (HGBA1C) 3871.1163 umol/L
[2025-04-18 14:15] LABS: Ferritin 39 ng/mL (20-250)
[2025-04-18 14:18] LABS: Other Crystals Urine Present; UACC Culture Trigger YES
[2025-04-18 14:26] LABS: PSA,Total (Free>4and<10) 2.93 ng/mL (0.00-4.00)
[2025-04-18 14:41] LABS: Folate 9.7 ng/mL (> or = 4.0); Vitamin B12 793 pg/mL (200-900)
== END 2025-04-18 09:28 | disposition home or self-care (01) ==
LOC: HO.HMGCLDS 09:27
PROVIDERS: PCP Internal Medicine; Visit Provider Physician Assistant Medical
DX: Z00.00 Encounter for general adult medical examination without abnormal findings (principal); Z12.5 Encounter for screening for malignant neoplasm of prostate; Z28.89 Immunization not carried out for other reason; D64.9 Anemia, unspecified; N18.30 Chronic kidney disease, stage 3 unspecified; R97.20 Elevated prostate specific antigen [PSA]; L81.9 Disorder of pigmentation, unspecified; R82.71 Bacteriuria; N32.1 Vesicointestinal fistula; R39.9 Unspecified symptoms and signs involving the genitourinary system; N39.0 Urinary tract infection, site not specified; Z79.82 Long term (current) use of aspirin; Z79.899 Other long term (current) drug therapy
CPT/HCPCS: 36415; 80053; 80061; 80076; 81001; 81003; 82248; 82306; 82607; 82728; 82746; 83036; 83540; 83735; 84153; 84443; 85025; 86140; 87086; 90471; 96127; 99202

== ENCOUNTER 2025-05-10 14:35 | Outpatient (AMB) | payer MEDICARE, OTHER, SELFPAY ==
[2025-05-10 15:00] VITALS: BP 122/70; PULSE 85; O2SAT 95; BMI 24.3
--- NOTE | 2025-05-10 15:00 | HO.NEPHOV_ITS ---
Vital Signs 05/10/25 15:00 Height 5 ft 8 in Weight 160 lb BMI 24.3 BP 122/70 Blood Pressure Location Lt brachial Position Sitting Pulse 85 Pulse Source Pulse Oximeter Pulse Oximetry (%) 95 Oxygen Delivery Method Room Air Intake Visit Reasons: INP: Chronic kidney disease, stage 3 Sales Representative Publications Required: No Accompanied by: Spouse Allergies No Known Allergies Allergy (Verified 05/10/25 15:02) Medication List - Last Reconciled 05/10/25 by Charles Aleman MD ascorbic acid (vitamin C) 1,000 mg PO DAILY 90 days aspirin 81 mg PO DAILY atorvastatin 40 mg PO BEDTIME cyanocobalamin (vitamin B-12) 1,000 mcg PO DAILY duloxetine 60 mg PO .am duloxetine 20 mg PO .pm finasteride 5 mg PO DAILY 90 days lorazepam 0.5 mg PO DAILY PRN methenamine hippurate 1 g PO BID 90 days mirtazapine 45 mg PO BEDTIME pantoprazole 40 mg PO DAILY risperidone 0.5 mg PO DAILY solifenacin 5 mg PO DAILY 90 days trimethoprim 100 mg PO DAILY 90 days HPI Comments Details: - The patient is an 85-year-old male referred for Chronic Kidney Disease. - Chronic Kidney Disease: Serum creatinine 1.7 mg/dL, eGFR at 38%. 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 Recurrent UTI - On trimethoprim prophylaxis. - Elevated PSA: Normal biopsy, - Persistent Hypercalcemia: Unexplained elevation. [facility] Medical History (Updated 05/10/25 @ 15:08 by Charles Aleman MD) Chronic anemia CKD (chronic kidney disease) stage 3, GFR 30-59 ml/min Atypical pigmented skin lesion Chronic bacteriuria Family History Mother Hx of heart bypass surgery Father Throat cancer Social History Household Members: Spouse Housing: House Alcohol intake: former Patient Tobacco Use Status: Former Tobacco user service: Yes Current occupational status: retired Cognitive needs: No Hearing needs: No Vision needs: Yes (reading glases/cheaters) Review of Systems Const Denies fever(s) and Denies weight loss Card Denies chest pain Resp Denies cough and Denies hemoptysis GI Denies abdominal pain, Denies diarrhea and Denies nausea Musc Denies back pain Neuro Denies focal weakness Physical Exam Vital Signs: Last Vital Signs Pulse 85 05/10/25 15:00 BP 122/70 05/10/25 15:00 Pulse Ox 95 05/10/25 15:00 Oxygen Delivery Method Room Air 05/10/25 15:00 BMI result Body Mass Index 24.3 Comfortable Neck supple no JVD. Lungs entry equal no rales. Heart S1-S2 heard no gallop or rub. Abdomen soft nontender. Neuro alert awake oriented. No asterixis. Extremities no edema. Results Reviewed Nephrology Results: Hgb, (14.0-18.0) 12.9 g/dl L 04/18/25 WBC, (4.8-10.8) 7.6 X10*3/uL 04/18/25 Plt Count, (160-400) 243 X10*3/uL 04/18/25 Sodium, (135-145) 140 mmol/L 04/18/25 Potassium, (3.3-5.1) 4.9 mmol/L 04/18/25 Chloride, (96-108) 110 mmol/L H 04/18/25 Carbon Dioxide, (22-29) 23 mmol/L 04/18/25 BUN, (9-16) 19 mg/dL H 04/18/25 Creatinine, (0.5-1.4) 1.71 mg/dL H 04/18/25 Calcium, (8.4-10.2) 11.0 mg/dL H 04/18/25 Urine Protein, (Neg-Trace) 30 (1+) mg/dL H 04/18/25 Assessment & Plan Assessment & Plan (1) CKD (chronic kidney disease) stage 3, GFR 30-59 ml/min: Code(s): N18.30 - Chronic kidney disease, stage 3 unspecified Category: Medical (2) Hypercalcemia: Code(s): E83.52 - Hypercalcemia Category: Medical Plan 1. Chronic Kidney Disease Wide differential No obstruction basedon [facility] AGN un likely Cannot ruled out AiN yet Hypoperfusion/Age related loss of nephron Trimethoprim can inhibitor tubular secretion of creatinine - Conduct 24-hour urine collection and blood tests. - Increase fluid intake with trimethoprim. 2. Recurrent Urinary Tract Infections - Continue trimethoprim prophylaxis. 3. Colovesical Fistula - No surgery due to high risk. 4. Persistent Hypercalcemia Check SPEP PTH /Vit D Patient Instructions - Collect urine for 24 hours as instructed. - Increase fluid intake, especially with trimethoprim. - Follow up in a couple of weeks for test results. Orders: Orders Sodium, 24Hr Urine Group Today E83.52 - Hypercalcemia, N18.30 - Chronic kidney disease, stage 3 unspecified Calcium, 24 Hr Ur Today E83.52 - Hypercalcemia, N18.30 - Chronic kidney disease, stage 3 unspecified Oxalate, 24 Hr Today E83.52 - Hypercalcemia, N18.30 - Chronic kidney disease, stage 3 unspecified Complete Blood Count Auto Diff Today E83.52 - Hypercalcemia, N18.30 - Chronic kidney disease, stage 3 unspecified Comprehensive Met. Panel Today E83.52 - Hypercalcemia, N18.30 - Chronic kidney disease, stage 3 unspecified Parathyroid Hormone Intact Today E83.52 - Hypercalcemia, N18.30 - Chronic kidney disease, stage 3 unspecified Vitamin D 25-OH Total Today E83.52 - Hypercalcemia, N18.30 - Chronic kidney disease, stage 3 unspecified Creatinine, 24 Hr Group Today E83.52 - Hypercalcemia, N18.30 - Chronic kidney disease, stage 3 unspecified Citric Acid 24hr Urine Today E83.52 - Hypercalcemia, N18.30 - Chronic kidney disease, stage 3 unspecified Creatinine Urine Today E83.52 - Hypercalcemia, N18.30 - Chronic kidney disease, stage 3 unspecified Total Protein Urine Random Today E83.52 - Hypercalcemia, N18.30 - Chronic kidney disease, stage 3 unspecified Protein Electrophoresis, Serum Today E83.52 - Hypercalcemia, N18.30 - Chronic kidney disease, stage 3 unspecified Coding Level of Care Code New Pt Level 5 (39129) Diagnoses CKD (chronic kidney disease) stage 3, GFR 30-59 ml/min N18.30 Hypercalcemia E83.52
== END 2025-05-10 15:22 | disposition home or self-care (01) ==
LOC: HO.HKA 14:36
PROVIDERS: PCP Internal Medicine; Referring Provider Physician Assistant Medical; Visit Provider Internal Medicine Hypertension Specialist
DX: N18.30 Chronic kidney disease, stage 3 unspecified (principal); E83.52 Hypercalcemia
CPT/HCPCS: 99204

== ENCOUNTER → 2025-05-10 14:35 | Outpatient (BNVA) | payer MEDICARE, OTHER, SELFPAY | PROVIDERS: PCP Internal Medicine; Referring Provider Physician Assistant Medical; Visit Provider Internal Medicine Hypertension Specialist | DX: N18.30 Chronic kidney disease, stage 3 unspecified (principal); E83.52 Hypercalcemia | CPT/HCPCS: 99202 ==

== ENCOUNTER 2025-05-16 10:09 | Outpatient (REF) | payer MEDICARE, OTHER, SELFPAY ==
[2025-05-16 13:31] LABS: MANUAL DIFF FLAG NO
[2025-05-16 13:46] LABS: Hematocrit 40.5 % (42.0-52.0); Hemoglobin 12.9 g/dl (14.0-18.0); Imm Gran Abs Auto 0.02 X10*3/uL (0.00-0.03); Imm Gran Pct Auto 0.3 % (0.0-0.4); Lymphocytes Absolute Auto 1.4 X10*3/uL (1.2-4.9); Mean Corpuscular HGB Conc 31.9 g/dl (31.0-36.0); Mean Corpuscular Hemoglobin 30.1 pg (27.0-33.0); Mean Corpuscular Volume 94.4 fL (80.0-98.0); NRBC Abs Auto 0.000 X10*3/uL (0.0-0.012); NRBC Pct Auto 0.0 /100WBC (0.0-0.2); Platelet Count 269 X10*3/uL (160-400); Red Blood Count 4.29 X10*6/uL (4.60-5.80); White Blood Count 7.2 X10*3/uL (4.8-10.8)
[2025-05-16 13:51] LABS: Total Protein Urine Random 27 mg/dL (<12)
[2025-05-16 14:09] LABS: Alanine Aminotransferase 14 U/L (0-40); Albumin Level 4.4 g/dL (3.5-5.0); Alkaline Phosphatase 72 U/L (39-117); Anion Gap 9 (12-20); Aspartate Amino Transferase 18 U/L (5-37); Blood Urea Nitrogen 18 mg/dL (9-16); Calcium 10.7 mg/dL (8.4-10.2); Carbon Dioxide 24 mmol/L (22-29); Chloride 113 mmol/L (96-108); Estimated Glomerular Filt Rate 36; Potassium 4.7 mmol/L (3.3-5.1); Sodium 141 mmol/L (135-145); Total Protein 7.1 g/dL (6.5-8.0)
[2025-05-16 14:47] LABS: Parathyroid Hormone Intact 170.2 pg/mL (8.7-77.1)
[2025-05-17 21:14] LABS: Prot Elec - Albumin 4.0 g/dL (3.8-4.8); Prot Elec - Alpha1 0.3 g/dL (0.2-0.3); Prot Elec - Alpha2 0.7 g/dL (0.5-0.9); Prot Elec - Beta 1 0.4 g/dL (0.4-0.6); Prot Elec - Beta 2 0.4 g/dL (0.2-0.5); Prot Elec - Gamma 0.9 g/dL (0.8-1.7); Prot Elec - Total Protein 6.7 g/dL (6.1-8.1)
== END 2025-05-16 10:10 | disposition home or self-care (01) ==
LOC: HO.HMGCLDS 10:09
PROVIDERS: PCP Physician Assistant Medical; Visit Provider Internal Medicine Hypertension Specialist
DX: N18.30 Chronic kidney disease, stage 3 unspecified (principal); E83.52 Hypercalcemia
CPT/HCPCS: 36415; 80053; 82306; 82570; 83970; 84156; 84165; 85025

== ENCOUNTER 2025-05-18 10:00 | Outpatient (REF) | payer MEDICARE, OTHER, SELFPAY ==
[2025-05-19 14:22] LABS: Creatinine, mg/dL 73.01; Sodium, 24 Hr Urine 85.0 mmol/L
[2025-05-19 15:06] LABS: Total Volume 24 Hour Urine 1075 mL
[2025-05-23 21:18] LABS: Calcium/Creatinine Ratio 164 mg/g creat (30-210); Creatinine 24Hr Urine 0.78 g/24 h (0.50-2.15)
[2025-05-25 21:02] LABS: 24hr Urine Total Volume 1075 mL; Citric Acid, 24hr Urine 409 mg/24 h (100-1300); Citric Acid/Creat Ratio 24U 511 mg/g creat (60-660); Creatinine, 24U 0.80 g/24 h (0.50-2.15)
== END 2025-05-18 10:01 | disposition home or self-care (01) ==
LOC: HO.HMGCLNP 10:00
PROVIDERS: PCP Physician Assistant Medical; Visit Provider Internal Medicine Hypertension Specialist
DX: E83.52 Hypercalcemia (principal); N18.30 Chronic kidney disease, stage 3 unspecified
CPT/HCPCS: 82340; 82507; 83945; 84300

== ENCOUNTER 2025-05-30 14:55 | Outpatient (AMB) | payer MEDICARE, OTHER, SELFPAY ==
[2025-05-30 14:58] VITALS: BP 126/62; PULSE 83; O2SAT 96; BMI 24.9
--- NOTE | 2025-05-30 14:58 | HO.NEPHOV ---
Vital Signs 05/30/25 14:58 Height 5 ft 8 in Weight 164 lb BMI 24.9 BP 126/62 Blood Pressure Location Lt brachial Position Sitting Pulse 83 Pulse Source Pulse Oximeter Pulse Oximetry (%) 96 Oxygen Delivery Method Room Air Intake Visit Reasons: 3 weeks f/u w/ labs Head Of Commission Department Required: No Accompanied by: Spouse Allergies No Known Allergies Allergy (Verified 05/30/25 14:59) Medication List - Last Reconciled 05/30/25 by Charles Aleman MD ascorbic acid (vitamin C) 1,000 mg PO DAILY 90 days aspirin 81 mg PO DAILY atorvastatin 40 mg PO BEDTIME cyanocobalamin (vitamin B-12) 1,000 mcg PO DAILY duloxetine 60 mg PO .am duloxetine 20 mg PO .pm finasteride 5 mg PO DAILY 90 days lorazepam 0.5 mg PO DAILY PRN methenamine hippurate 1 g PO BID 90 days mirtazapine 45 mg PO BEDTIME pantoprazole 40 mg PO DAILY risperidone 0.5 mg PO DAILY solifenacin 5 mg PO DAILY 90 days trimethoprim 100 mg PO DAILY 90 days HPI Comments Details: - The patient is an 85-year-old male referred for Chronic Kidney Disease. - Chronic Kidney Disease: Serum creatinine 1.7 mg/dL, eGFR at 38%. 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 Recurrent UTI - On trimethoprim prophylaxis. - Elevated PSA: Normal biopsy, - Persistent Hypercalcemia: Unexplained elevation. 05/30/25 The patient is an 85-year-old male presenting with chronic kidney disease and hypercalcemia. The kidney function is currently at 36%, which is below the desired level of 45% or higher. The patient has been taking calcium 1000 mg and vitamin D supplements, which may contribute to the elevated calcium levels. The patient also has elevated parathyroid hormone levels, which could be contributing to the hypercalcemia. The patient's blood pressure is well-controlled at 126/62 mmHg without the use of antihypertensive medications. There is no reported difficulty with urination, appetite is good, and there are no symptoms of nausea or vomiting. The patient has been on trimethoprim for infection prevention related to a fistula since July 2019. The patient is scheduled for follow-up appointments with the infectious disease specialist and urologist. [facility] Medical History (Updated 05/10/25 @ 15:08 by Charles Aleman MD) Chronic anemia CKD (chronic kidney disease) stage 3, GFR 30-59 ml/min Atypical pigmented skin lesion Chronic bacteriuria Family History Mother Hx of heart bypass surgery Father Throat cancer Social History Household Members: Spouse Housing: House Alcohol intake: former Patient Tobacco Use Status: Former Tobacco user service: Yes Current occupational status: retired Cognitive needs: No Hearing needs: No Vision needs: Yes (reading glases/cheaters) Physical Exam Vital Signs: Last Vital Signs Pulse 83 05/30/25 14:58 BP 126/62 05/30/25 14:58 Pulse Ox 96 05/30/25 14:58 Oxygen Delivery Method Room Air 05/30/25 14:58 BMI result Body Mass Index 24.9 Comfortable Neck supple no JVD. Lungs entry equal no rales. Heart S1-S2 heard no gallop or rub. Abdomen soft nontender. Neuro alert awake oriented. No asterixis. Extremities no edema. Results Reviewed Nephrology Results: Hgb, (14.0-18.0) 12.9 g/dl L 05/16/25 WBC, (4.8-10.8) 7.2 X10*3/uL 05/16/25 Plt Count, (160-400) 269 X10*3/uL 05/16/25 Sodium, (135-145) 141 mmol/L 05/16/25 Potassium, (3.3-5.1) 4.7 mmol/L 05/16/25 Chloride, (96-108) 113 mmol/L H 05/16/25 Carbon Dioxide, (22-29) 24 mmol/L 05/16/25 BUN, (9-16) 18 mg/dL H 05/16/25 Creatinine, (0.5-1.4) 1.79 mg/dL H 05/16/25 Calcium, (8.4-10.2) 10.7 mg/dL H 05/16/25 PTH Intact, (8.7-77.1) 170.2 pg/mL H 05/16/25 Urine Protein, (Neg-Trace) 30 (1+) mg/dL H 04/18/25 Urine Creatinine 131.10 mg/dL 05/16/25 Assessment & Plan Assessment & Plan (1) CKD (chronic kidney disease) stage 3, GFR 30-59 ml/min: Code(s): N18.30 - Chronic kidney disease, stage 3 unspecified Category: Medical (2) Hypercalcemia: Code(s): E83.52 - Hypercalcemia Category: Medical Plan 1. Chronic Kidney Disease Wide differential No obstruction based on [facility] AGN un likely Cannot ruled out AiN yet Hypoperfusion/Age related loss of nephron Trimethoprim can inhibitor tubular secretion of creatinine . - Increase fluid intake with trimethoprim. 2. Recurrent Urinary Tract Infections - Continue trimethoprim prophylaxis. 3. Colovesical Fistula - No surgery due to high risk. 4. Persistent Hypercalcemia Check SPEP Stop calcium 1000 mg and Vit D supplements Check Ca /PTH in 3 weeks Orders: Orders Parathyroid Hormone Intact 3 Weeks E83.52 - Hypercalcemia, N18.30 - Chronic kidney disease, stage 3 unspecified Complete Blood Count no Diff 3 Weeks E83.52 - Hypercalcemia, N18.30 - Chronic kidney disease, stage 3 unspecified Total Protein Urine Random 3 Weeks E83.52 - Hypercalcemia, N18.30 - Chronic kidney disease, stage 3 unspecified Protein Electrophoresis, Serum 3 Weeks E83.52 - Hypercalcemia, N18.30 - Chronic kidney disease, stage 3 unspecified Neutrophil Cytoplasma Ab 3 Weeks E83.52 - Hypercalcemia, N18.30 - Chronic kidney disease, stage 3 unspecified Basic Metabolic Panel 3 Weeks E83.52 - Hypercalcemia, N18.30 - Chronic kidney disease, stage 3 unspecified UA and rflx microscopic 3 Weeks E83.52 - Hypercalcemia, N18.30 - Chronic kidney disease, stage 3 unspecified Creatinine Urine 3 Weeks E83.52 - Hypercalcemia, N18.30 - Chronic kidney disease, stage 3 unspecified Coding Level of Care Code Est Pt Level 4 (82609) Diagnoses CKD (chronic kidney disease) stage 3, GFR 30-59 ml/min N18.30 Hypercalcemia E83.52
== END 2025-05-30 15:18 | disposition home or self-care (01) ==
LOC: HO.HKA 14:56
PROVIDERS: PCP Internal Medicine; Visit Provider Internal Medicine Hypertension Specialist
DX: N18.30 Chronic kidney disease, stage 3 unspecified (principal); E83.52 Hypercalcemia
CPT/HCPCS: 99214

== ENCOUNTER → 2025-05-30 14:55 | Outpatient (BNVA) | payer MEDICARE, OTHER, SELFPAY | PROVIDERS: PCP Internal Medicine; Visit Provider Internal Medicine Hypertension Specialist | DX: N18.30 Chronic kidney disease, stage 3 unspecified (principal); E83.52 Hypercalcemia | CPT/HCPCS: 99212 ==

== ENCOUNTER 2025-06-08 12:56 | Inpatient (IN) | payer MEDICARE, OTHER, SELFPAY ==
[2025-06-08 13:29] VITALS: BP 129/65; PULSE 88; RESP 18; TEMP 36.4; O2SAT 94; BMI 25.2
--- NOTE | 2025-06-08 13:33 | ED.PSYCH ---
HPI - Psych General Chief Complaint: Psychiatric Symptoms Stated Complaint: crisis Time Seen by Provider: 06/08/25 13:59 Source: patient, family (Daughter at bedside), RN notes reviewed and old records reviewed Mode of arrival: ambulatory Limitations: no limitations History of Present Illness ED Provider: JEEVAN Lenz HPI Narrative: 85-year-old male with medical history of depression, anxiety, CKD stage 3, anemia, chronic bacteria on methenamine presents to the ED due to increased depression and anxiety. Patient's daughter explains that there has been increased life stressors over the last 4 weeks. Stating that her mother recently had quadruple bypass surgery, with recent STR placement, and needed increased help at home that the patient was trying to manage. Additionally, the family dog was diagnosed with a tumor recently and her father has had a difficult time processing all of these changes. Patient denies suicidal ideation however does have access to firearms in the home but these are locked in a safe. Denies physical complaints today including chest pain, shortness of breath, abdominal pain, nausea, vomiting, diarrhea, SI, HI, AH, VH Related Data Home Medications ?Medication ?Instructions ?Recorded ?Confirmed aspirin 81 mg tablet,delayed 81 mg PO DAILY 05/07/23 06/08/25 release lorazepam 0.5 mg tablet 0.5 mg PO BID PRN Anxiety 05/07/23 06/09/25 risperidone 0.5 mg tablet 0.5 mg PO BEDTIME 05/07/23 06/08/25 cyanocobalamin (vitamin B-12) 1,000 mcg PO DAILY 05/10/25 06/08/25 1,000 mcg capsule mirtazapine 30 mg tablet 30 mg PO BEDTIME 05/10/25 06/09/25 magnesium aspart,citrate,oxide 400 mg PO DAILY 05/30/25 06/08/25 duloxetine 20 mg capsule,delayed 20 mg PO BEDTIME 06/08/25 06/08/25 release duloxetine 60 mg capsule,delayed 60 mg PO DAILY 06/09/25 06/09/25 release mirtazapine 15 mg tablet (Remeron) 15 mg PO BEDTIME 06/09/25 06/09/25 pantoprazole 40 mg tablet,delayed 40 mg PO DAILY@0630 06/09/25 06/09/25 release Previous Rx's ?Medication ?Instructions ?Recorded solifenacin 5 mg tablet 5 mg PO DAILY 90 days #90 tabs 01/25/25 finasteride 5 mg tablet 5 mg PO DAILY 90 days #90 tabs 03/04/25 methenamine hippurate 1 gram tablet 1 g PO BID 90 days #180 tabs 03/04/25 trimethoprim 100 mg tablet 100 mg PO DAILY 90 days #90 tabs 03/04/25 atorvastatin 40 mg tablet 40 mg PO BEDTIME #90 tabs 04/18/25 Allergies Allergy/AdvReac Type Severity Reaction Status Date / Time No Known Allergies Allergy Verified 06/08/25 13:34 Review of Systems Review of Systems: Yes all other systems are reviewed and are negative PMFSH Past Medical History Attestation statement: The following information was validated with the patient. Source: old records reviewed and nursing notes reviewed Medical History (Updated 06/08/25 @ 17:16 by Sonja Lenz PA-C) Chronic anemia CKD (chronic kidney disease) stage 3, GFR 30-59 ml/min Atypical pigmented skin lesion Chronic bacteriuria Family History Family History Mother Hx of heart bypass surgery Father Throat cancer Social History Social History Household Members: Spouse Housing: House Do you presently have visiting nurse or other home services: No Alcohol intake: former Patient Tobacco Use Status: Former Tobacco user Currently Displaying Signs/Symptoms of Drug Intoxication Withdrawal: No Have you been hit, kicked, punched, or otherwise hurt by someone within the past year? If so, by whom?: No Do you feel safe in your current relationship?: Yes Is there a partner from a previous relationship who is making you feel unsafe now?: No Are you made to feel afraid or neglected: No Spiritual Healthcare Practices: yes Advance Directives: No Advance Directives Information Provided: No Do you have thoughts of harming others: None Do you have a plan to hurt others: No Plan Recently lost weight without trying: No Nutrition Risks: No Nutritional Risk Poor oral hygiene: No service: Yes Current occupational status: retired Cognitive needs: No Hearing needs: No Vision needs: Yes (reading glases/cheaters) Physical Exam Vital Signs: Vital Signs: Last Vital Signs Temp 97.7 F 06/09/25 13:58 Pulse 84 06/09/25 13:58 Resp 18 06/09/25 13:58 BP 131/74 06/09/25 13:58 Pulse Ox 94 06/09/25 13:58 O2 Del Method Room Air 06/09/25 13:58 BMI result Body Mass Index 25.2 GENERAL APPEARANCE: ?AxOx4, generally well-appearing, patient has appropriate eye contact, is conversive, with appropriate affect no acute distress. HEENT: ?NC, AT. MMM. EOMI, clear conjunctiva, oropharynx clear. NECK: ?Supple without lymphadenopathy.? No stiffness or restricted ROM. HEART:? Normal rate and regular rhythm, normal S1/S2, no m/r/g LUNGS:? CTAB, moving air well. No crackles or wheezes are heard. ABDOMEN: ?Soft, nontender, nondistended with good bowel sounds heard. BACK: No CVAT, no obvious deformity. EXTREMITIES: ?Without cyanosis, clubbing or edema. NEUROLOGICAL: ?Grossly nonfocal. Alert and oriented, moving all 4 extremities. Observed to ambulate with normal gait. Skin: ?Warm and dry without any rash. Course Course Course Narrative: This is a Rapid Medical Exam performed in triage by Mallory Asif PA-C. Full HPI, ROS and PE to be performed by primary ED provider. 85 yo M w/pmhx CKD, anemia, MDD, presenting to the ED c/o increasing live stressors with that just had surgery & very sick dog - increased depression - vague SI. Patient has access to multiple weapons in the house. PE: NAD, nontoxic, ambulating with steady gait Plan: Labs, HUGO, CARE team consult Reevaluation(s) Reevaluation #1: Time: 08:16 Date: 06/09/25 Provider: Thad Luna MD Patient in physician observation for psychiatric evaluation.? No acute events reported overnight. No current complaints. VS stable.? Patient is in bed search status. Will continue to monitor. Reevaluation #2: Time: 16:52 Date: 06/09/25 Provider: Thad Luna MD Physician observation ended at 13:00. Patient to be admitted as inpatient to psychiatry. The patient was admitted to the geriatric psychiatric unit without incident. Medications Administered Generic Name Dose Route Start Last Admin Trade Name Freq PRN Reason Stop Dose Admin Ascorbic Acid 1,000 mg 06/09/25 09:00 06/09/25 09:20 Ascorbic Acid 500 Mg Tablet PO 1,000 mg DAILY CAMMIE Administration Aspirin 81 mg 06/09/25 09:00 06/09/25 09:20 Aspirin Enteric Coated 81 Mg Tablet. PO 81 mg DAILY CAMMIE Administration Atorvastatin Calcium 40 mg 06/08/25 21:00 06/08/25 20:48 Atorvastatin Calcium 40 Mg Tablet PO Not Given BEDTIME CAMMIE Cyanocobalamin 1,000 mcg 06/09/25 09:00 06/09/25 09:20 Cyanocobalamin (Vitamin B-12) 1,000 Mcg Tablet PO 1,000 mcg DAILY CAMMIE Administration Finasteride 5 mg 06/09/25 09:00 06/09/25 11:06 Finasteride 5 Mg Tablet PO 5 mg DAILY CAMMIE Administration Lorazepam 0.5 mg 06/08/25 16:54 06/09/25 11:50 Lorazepam 0.5 Mg Tablet PO 0.5 mg DAILY PRN Administration Anxiety Magnesium Oxide 400 mg 06/09/25 09:00 06/09/25 09:20 Magnesium Oxide 400 Mg Tablet PO 400 mg DAILY CAMMIE Administration Methenamine Hippurate 1 gm 06/08/25 21:00 06/09/25 09:21 Methenamine Hippurate 1 Gm Tablet PO 1 gm BID CAMMIE Administration Mirtazapine 45 mg 06/08/25 21:00 06/08/25 20:47 Mirtazapine 15 Mg Tablet PO 45 mg BEDTIME CAMMIE Administration Omeprazole 20 mg 06/09/25 06:30 06/09/25 06:05 Omeprazole 20 Mg Capsule. PO 20 mg DAILY@0630 CAMMIE Administration Risperidone 0.5 mg 06/09/25 09:00 06/09/25 09:20 Risperidone 0.5 Mg Tablet PO 0.5 mg DAILY CAMMIE Administration Tolterodine Tartrate 4 mg 06/09/25 09:00 06/09/25 11:06 Tolterodine Tartrate [place] 4 Mg Cap.Er.24h PO 4 mg DAILY CAMMIE Administration Discontinued Medications Generic Name Dose Route Start Last Admin Trade Name Freq PRN Reason Stop Dose Admin Lorazepam 1 mg 06/08/25 16:54 06/08/25 16:59 Lorazepam 1 Mg Tablet PO 06/08/25 16:55 1 mg ONCE ONE Administration Medical Decision Making Medical Decision Making MDM Narrative: 85-year-old male with medical history of depression, anxiety, CKD stage 3, anemia, chronic bacteria on methenamine presents to the ED due to increased depression and anxiety. Patient's daughter explains that there has been increased life stressors over the last 4 weeks. Stating that her mother recently had quadruple bypass surgery, with recent STR placement, and needed increased help at home that the patient was trying to manage. Additionally, the family dog was diagnosed with a tumor recently and her father has had a difficult time processing all of these changes. Patient denies suicidal ideation however does have access to firearms in the home but these are locked in a safe. Patient has history of inpatient hospitalizations and states he believes this is what he needs at this time to become more stable with his depression. Denies SI, HI, AH, VH VS on initial observation-BP 129/65, pulse rate of 88, respiratory rate of 18, afebrile with oral temp of 97.5?, O2 saturation 94% on room air. On physical exam patient is engaging, with proper eye contact, conversive, with proper affect, lungs clear to auscultation bilaterally, cardiac exam reveals normal rate and rhythm without murmurs/rubs/gallops, abdomen is soft, nondistended, no rigidity, nontender, extremities without edema Labs without leukocytosis/leukopenia, stable normocytic anemia with a hemoglobin of 12.7, hematocrit of 38.4, elevated chloride however this seems to be around the patient's baseline, elevated BUN of 20, elevated creatinine of 1.94. Viral serology negative UA reveals concentrated urine with 3+ urine protein, 3+ urine blood, positive nitrites, 2+ leukocyte esterase, 3-5 urine RBCs, with crystals, 4+ bacteria, granular casts- patient with history of chronic bacteria on methenamine no indication for abx at this time. U tox negative When discussing the patient with behavioral health specialist Beverly He, patient expressed he needs inpatient care. He is currently an inpatient bed search. Patient was endorsing increased anxiety, and was medicated with 1 mg p.o. Ativan. When reviewing labs, patient has an elevated creatinine at 1.97, with a BUN of 20, patient without nausea, asymptomatic we will encourage oral hydration at this time. I discussed this with the patient and his daughter who is at bedside, patient does not want IV fluids, and he will increase his fluid intake. Differential Diagnosis Differential Diagnoses: The differential diagnosis associated with the presentation includes Increased depression Increased anxiety Suicidal ideation Psychosis Admission/Observation Consideration of admission/observation: Escalation of care including admission/observation considered Consult Healthcare Provider Management of the patient was discussed with: Business Integration Manager (Care team) Lab Data MDM Lab Attestation statement: I reviewed the patient's lab results. 06/08/25 13:47 06/08/25 13:47 Labs: Lab Results 06/08/25 06/08/25 06/08/25 Range/Units 13:47 14:23 15:20 WBC 10.0 (4.8-10.8) X10*3/uL RBC 4.14 L (4.60-5.80) X10*6/uL Hgb 12.7 L (14.0-18.0) g/dl Hct 38.4 L (42.0-52.0) % MCV 92.8 (80.0-98.0) fL MCH 30.7 (27.0-33.0) pg MCHC 33.1 (31.0-36.0) g/dl RDW 13.6 (11.0-16.0) % Plt Count 253 (160-400) X10*3/uL MPV 9.6 (9.4-12.4) fL Immature Gran % (Auto) 0.4 (0.0-0.4) % Neut % (Auto) 78.4 H (45-73) % Lymph % (Auto) 14.2 L (20-40) % [place] % (Auto) 6.3 (2-11) % Eos % (Auto) 0.4 (0-4) % Baso % (Auto) 0.3 (0-2) % Lymph # (Auto) 1.4 (1.2-4.9) X10*3/uL [place] # (Auto) 0.6 (0.1-1.2) X10*3/uL Eos # (Auto) 0.0 (0.0-0.4) X10*3/uL Baso # (Auto) 0.0 (0.0-0.2) X10*3/uL Abs Immat Gran (auto) 0.04 H (0.00-0.03) X10*3/uL Absolute Neuts (auto) 7.8 (2.0-8.3) x10*3/uL Absolute Nucleated RBC 0.000 (0.0-0.012) X10*3/uL Nucleated RBC % (auto) 0.0 (0.0-0.2) /100WBC Sodium 140 (135-145) mmol/L Potassium 4.4 (3.3-5.1) mmol/L Chloride 110 H (96-108) mmol/L Carbon Dioxide 23 (22-29) mmol/L Anion Gap 11 L (12-20) BUN 20 H (9-16) mg/dL Creatinine 1.94 H (0.5-1.4) mg/dL Estim Creat Clear Calc 26.5 Estimated GFR 33 Random Glucose 126 H (60-115) mg/dL Calcium 11.1 H (8.4-10.2) mg/dL Magnesium 2.5 (1.6-2.6) mg/dL Total Bilirubin 0.5 (0.0-1.0) mg/dL Direct Bilirubin 0.2 (0.0-0.5) mg/dL AST 22 (5-37) U/L ALT 17 (0-40) U/L Alkaline Phosphatase 70 (39-117) U/L Total Protein 7.0 (6.5-8.0) g/dL Albumin 4.5 (3.5-5.0) g/dL Urine Color Straw Urine Appearance Cloudy Urine pH 6.5 (5.0-9.0) Ur Specific [place] >= 1.030 H (1.005-1.025) Urine Protein 300 (3+) H (Neg-Trace) mg/dL Urine Glucose (UA) Negative (Negative) mg/dL Urine Ketones Trace (Negative) mg/dL Urine Blood Large (3+) H (Negative) Urine Nitrite Positive H (Negative) Ur Leukocyte Esterase Moderate (2+) H (Negative) Urine RBC 3-5 H (0-2) /HPF Urine WBC 11-20 (0-5) /HPF Ur Squamous Epith Cells 3-5 (0-2) /HPF Other Crystals Present Urine Bacteria 4+ (None Seen) Hyaline Casts 0-2 (0-2) /LPF Granular Casts Present Urine Opiates Screen Not Detected (Not Detect) Ur Buprenorphine Scrn Not Detected (Not Detect) ng/mL Ur Oxycodone Screen Not Detected (Not Detect) ng/mL Urine Methadone Screen Not Detected (Not Detect) ng/mL Urine Fentanyl Screen Not Detected (Not Detect) Ur Barbiturates Screen Not Detected (Not Detect) Ur Phencyclidine Scrn Not Detected (Not Detect) Ur Amphetamines Screen Not Detected (Not Detect) U Benzodiazepines Scrn Not Detected (Not Detect) Urine Cocaine Screen Not Detected (Not Detect) U Marijuana (THC) Screen Not Detected (Not Detect) Ethyl Alcohol 12 mg/dL Influenza Type A (PCR) NEGATIVE (Negative) Influenza Type B (PCR) NEGATIVE (Negative) RSV RNA Qual (PCR) NEGATIVE (Negative) SARS-CoV-2 RNA (RT-PCR) NEGATIVE (Negative) Independent Historian Clinical information obtained from an independent historian. History obtained from or confirmed by: Other (Daughter at bedside corroborating history) External Record Review External record reviewed: Inpatient record, Office record and Outpatient record Chronic Conditions Patient?s care impacted by: Other (Hypercalcemia, anemia, CKD stage 3, chronic bacteria, chronic UTI) Social Determinants Patient?s care significantly limited by Social Determinants of Health including: Other Social Determinant of Health Discharge Plan Discharge Clinical Impression: Depression Patient Disposition: Admitted As Inpatient Interventions: [place]-Suicide Risk Severity Scale Last Done: 06/08/25 15:21 Admission Worksheet (ED) Last Done: 06/09/25 13:26 Discharge Date/Time: 06/09/25 14:01
[2025-06-08 13:51] LABS: MANUAL DIFF FLAG NO
[2025-06-08 13:54] LABS: Hematocrit 38.4 % (42.0-52.0); Hemoglobin 12.7 g/dl (14.0-18.0); Imm Gran Abs Auto 0.04 X10*3/uL (0.00-0.03); Imm Gran Pct Auto 0.4 % (0.0-0.4); Lymphocytes Absolute Auto 1.4 X10*3/uL (1.2-4.9); Mean Corpuscular HGB Conc 33.1 g/dl (31.0-36.0); Mean Corpuscular Hemoglobin 30.7 pg (27.0-33.0); Mean Corpuscular Volume 92.8 fL (80.0-98.0); NRBC Abs Auto 0.000 X10*3/uL (0.0-0.012); NRBC Pct Auto 0.0 /100WBC (0.0-0.2); Platelet Count 253 X10*3/uL (160-400); Red Blood Count 4.14 X10*6/uL (4.60-5.80); White Blood Count 10.0 X10*3/uL (4.8-10.8)
[2025-06-08 14:19] LABS: Alanine Aminotransferase 17 U/L (0-40); Albumin Level 4.5 g/dL (3.5-5.0); Alkaline Phosphatase 70 U/L (39-117); Anion Gap 11 (12-20); Aspartate Amino Transferase 22 U/L (5-37); Blood Urea Nitrogen 20 mg/dL (9-16); Calcium 11.1 mg/dL (8.4-10.2); Carbon Dioxide 23 mmol/L (22-29); Chloride 110 mmol/L (96-108); Creatinine Clr Calc Pharmacy 26.5; Estimated Glomerular Filt Rate 33; Magnesium 2.5 mg/dL (1.6-2.6); Potassium 4.4 mmol/L (3.3-5.1); Sodium 140 mmol/L (135-145); Total Protein 7.0 g/dL (6.5-8.0)
[2025-06-08 14:32] LABS: Resp Syncy Virus RNA Qual PCR NEGATIVE (Negative); SARS COV2 PCR INHOUSE NEGATIVE (Negative)
[2025-06-08 14:37] LABS: Appearance Urine Cloudy; Glucose Urine UA Negative (Negative); PH 6.5 (5.0-9.0); Specific Gravity - Urine >= 1.030 (1.005-1.025); UMIC TRIGGER UACC YES
[2025-06-08 14:58] LABS: UACC Culture Trigger YES
[2025-06-08 14:59] LABS: Other Crystals Urine Present
[2025-06-08 15:42] LABS: Cannabinoid Screen Urine Not Detected (Not Detect)
--- NOTE | 2025-06-08 18:50 | ECG_ITS ---
Test Reason : dizziness Blood Pressure : */* mmHG Vent. Rate : 74 BPM Atrial Rate : 74 BPM P-R Int : 168 ms QRS Dur : 128 ms QT Int : 380 ms P-R-T Axes : 21 -35 -15 degrees QTcB Int : 421 ms Sinus rhythm with occasional Premature ventricular complexes and Premature atrial complexes Left axis deviation Right bundle branch block Abnormal ECG No previous ECGs available Referred By: Sonja Lenz Electronically Signed By: IGNACIA WONG
--- NOTE | 2025-06-08 19:12 | PC.NURSE ---
Pt has been calm and cooperative, his daughter has been with him in his room. He is given a PRN for anxiety with good effect. He eats dinner and ensure is added to his diet. Pt urinates frequently at baseline due to a chronic bladder condition. He is educated to call out for assist if needed.
--- NOTE | 2025-06-09 02:16 | PC.NURSE ---
Took over of care at 23:00, pt sleeping
[2025-06-09 06:11] VITALS: BP 145/75; PULSE 82; RESP 17; TEMP 36.7; O2SAT 96
--- NOTE | 2025-06-09 06:12 | PC.NURSE ---
medicated per mar.
--- NOTE | 2025-06-09 07:18 | PC.NURSE ---
Assumed care of patient at 0645, patient appears to be in no apparent distress this am, resting in bed, appearing to be sleeping, respirations even and unlabored. Continue plan of care for catrachito IPLOC
[2025-06-09] MEDS: Aspirin Enteric Coated 81 MG TABLET.DR PO (09:20)
--- NOTE | 2025-06-09 11:04 | PHA.MEDREC ---
Addendum entered by Inez Head [facility] 06/09/25 11:48: REVIEWED BY PHARMACIST Original Note: Pharmacy Consult ? Medication Reconciliation Pharmacy reviewed med rec done by nursing. Spoke with pt and he confirmed his medications. Pt no longer taking Vitamin C; nurse confirmed, took off med rec, pt taking Lorazepam 0.5mg tab BID PRN Anxiety; nurse had confirmed 0.5mg once daily as needed for anxiety and pt taking both Mirtazapine 15mg and 30mg once daily at bedtime; nurse had confirmed 30mg 1.5 (45mg) once at bedtime, I update med rec according to what pt confirmed with me.
[2025-06-09 13:58] VITALS: BP 131/74; PULSE 84; RESP 18; TEMP 36.5; O2SAT 94
[2025-06-09 13:59] VITALS: BMI 24.4
[2025-06-09 14:00] VITALS: BMI 24.4
--- NOTE | 2025-06-09 15:06 | PC.ADMIT ---
Jaya Reza is a 85 year old male, admitted to S1 from ED Pod on 06/09/2025 at 1331. Per report from family, patient has had many recent life stressors, lost the family farm and had to move to a small home in [place], his has had many recent illnesses and a quadruple bypass, and his dog (who is his best friend) has been diagnosed with cancer and needs to be put down. Family stated that Jyaa has become extremely depressed, not getting out of bed, not performing ADLs, not eating and not sleeping. Jaya has a PMH of CKD stage 3, MDD, anxiety, anemia, chronic UTI on methanamine. Jaya is AxOx4, denies SI/HI/AH/VH at this time. Jaya stated that he does not like crowds/loud noises/to many things at once and becomes easily overwhelmed. Skin check performed and patient has areas of dry/scaling skin to mid upper back and a scabbed/raised/large/round growth to the left of his spine on his upper back. Per Jaya I have a hole in my bladder and sometimes I leak , weaing an incontinence pad. Jaya is on a regular diet and takes medications whole, completes ADLs independently and walks without aid.
--- NOTE | 2025-06-09 17:29 | P.EN_ITS ---
Event Note Date of Service: 06/09/25 Event Note: I was informed that patient legal documentation was incomplete. Admitting provider had been attending to behavioral health patient in ED. I was told patient had arrived around 2 pm. I assessed patient and spoke to daughter around 1630 when made aware by RN. I spoke to patient and dtr and discussed legal issues, noting patient did not seem to follow, was anxious and seemed confused. Patient seemed not to understand his situation, the implications of CV applic ation, and despite repeated attempts made by MD and his daughter to explain what he was agreeing to and signing. He repeated he wanted to be discharged and thought by signing he was asking to leave in 3 days', and he wanted to leave. Given patient's presentation, confusion about circumstances and not demonstrating a basic understanding of the CV application for admission and treatment ( other than stating he wanted to leave and by signing he would leave in 3 days. ). In my opinion, with reasonable degree of medical certainty, at the time of this assessment, Mr. Clarke was not able to make an informed decision such that I could legitimately accept CV. I explained to daughter and patient that if his wish was to leave in 3 days both a section 12b and a CV with 3 day notice would around same time, that both could result in discharge if safe (or in petition for involuntary commitment if assessed as not safe for discharge to less restrictive setting I noted I would communicate with his attending about our meeting. That the pt could sign a CV tomorrow or at any time during the next 72 hours. I inquired if he had HCP. My understanding from conversation w/ daughter was he did not want to sign HCP in the ED and she was not his agent. I informed treating attending that I had maintained legal status a s. 12 B, I could not at this time certify/accept CV as an informed decision but may be able to do so tomorrow. I explained legal status issues to daughter who was present. I informed her that his attending provider would assess him again tomorrow and hopefully once he was less anxious he would appreciate situation and make an informed, knowing and voluntary decision to sign application for CV Time Spent With Patient Time: Total time managing care of this patient today 20(NB)____ minutes.
[2025-06-09 20:00] VITALS: BP 150/73; PULSE 84; RESP 16; TEMP 36.4; O2SAT 97
--- NOTE | 2025-06-09 22:09 | HO.PSYADMNOT ---
HPI Date of Service: 06/09/25 Chief Complaint: depression Sources of Information: patient interviewed, chart reviewed and crisis/core team assessment reviewed HPI Subjective Notes: Section 12B Guardianship: No Medical Problems Affecting Mental Status: No Narrative: Per ED and care team note: Patient is a 85-year-old , White, Romanian speaking male with medical history of depression, anxiety, CKD stage 3, anemia, chronic bacteria on methenamine presents to the ED due to increased depression and anxiety ,and helplessness the past 4 weeks secondary to increased life stressors which have impacted patient's ability to attend to ADL' s. Pt reports that things have gone down hill since December 2024 when his underwent open heart surgery. Patient has found it hard to adjust with his being ill within the home, having her caretakers come and go , addressing his own medical issues and recently coming to realization he may have to put down his dog soon after a tumor was found; I'm not in a good place . On S1: Meet with patient in assigned room for psychiatric evaluation. Patient states reason for this admission is I just have a lot of things that happened that got to me . Patient states that his has not been feeling good. She went through therapy and I was worrying about her. Patient adds that a little dog that he has for 7-8 years he got tumor. He is my akshat and that patient does everything with the dog. Patient also states that I do not like the winter. I do not like the cold, snow and [place] . When asked any specifce past event happened that made him feel that way during this season, patient denies any triggers and states that it has been like that so many years. In addition, patient states that on going with medical appointments about his health. All of that makes him depressed and anxious and feeling like get pulled to many directions . Patient also says he has been up crying a couple times about his dog.Report sleep and appetite are ok . Goals is to get through all of it . Patient does not feel he wants to be here longer than 3 days. Legal issues: denies. Report he has a couple of guns but they are in a safe place . Family hx: denies family hx of mental health and substance use. Substance use hx: Denies. Do not smoke or drink or do any illicit drugs. Treatment hx: report hx of 1 psychiatric hospitalization in 2019 during covid pandemic for the same reason at [facility]. Denies current SI/SIB/HI/AVH. Denies hx of SIB, denies hx of suicide ideation, denies hx of suicide attempt. Denies family of commit suicide or suicide attempts. Report current active with OP psychiatrist, therapist as well as PCP. Report he sees his psychiatrist every 4-6 weeks and every two week with therapist. No other treatment hx Reviewed with patient regarding current home meds and PRN available. Patient states that Duloxetine was just recently increased at from OP provider is helpful. He does not want to have medication changes at this current time. Will leave it to attending to make any changes during hospitalization. Patient is A+Ox4, wearing hospital attire, pleasant, and cooperative throughout 1-1 assessment. Mood is with moderate depressed and anxious Fair eye contact. Normal speech and volume/tone. No irritability.Thought process is organized and linear. Memory is intact. Does not appear to have cognitive issues. Thought content is focus on getting better but also want to be discharged soon. No SI/SIB/HI/AVH. Do not make any delusional or paranoid statements. Do not appear to be psychotic. He has knowledge regarding tx hx. Fair insight but poor judgment. Past Psychiatric History: one psychiatric admission in 2019 for depression- same presentation as this time. No Hx of PHP/Respite or Detox No hx of SIB or suicide attempts Have OP psychiatric provider and therapist. See PCP and specialist and keep up with all appointment Medical Evaluation Reviewed: Yes On ABT for UTI [facility] Medical History Chronic anemia CKD (chronic kidney disease) stage 3, GFR 30-59 ml/min Atypical pigmented skin lesion Chronic bacteriuria Family History: Denies family hx of mental illnesses and substance use. Social History: He is , retired. Have two children. Live at home with . recently has medical conditions and recently has Heart surgery. He graduated from , had one year in college. Used to work for [employer] for 42 years. Have a dog that keeps him accompanied that has tumor and have to put the dog down. Substance History: Denies Trauma History: Denies. Report some bad stuff happened to him in the past but they are not bothering him at all. Diagnostics Vital Signs (24Hr): Vital Signs - 24 hr 06/09/25 06:11 06/09/25 13:58 06/09/25 20:00 Temperature 98.0 F 97.7 F 97.6 F Pulse Rate 82 84 84 Respiratory Rate 17 18 16 Blood Pressure 145/75 H 131/74 150/73 H Pulse Oximetry 96 94 97 Oxygen Delivery Method Room Air Room Air Room Air BMI result Body Mass Index 24.4 Labs 06/08/25 13:47 06/08/25 13:47 Labs: Laboratory Results - last 48 hr 06/08/25 06/08/25 06/08/25 13:47 14:23 15:20 WBC 10.0 RBC 4.14 L Hgb 12.7 L Hct 38.4 L MCV 92.8 MCH 30.7 MCHC 33.1 RDW 13.6 Plt Count 253 MPV 9.6 Immature Gran % (Auto) 0.4 Neut % (Auto) 78.4 H Lymph % (Auto) 14.2 L [place] % (Auto) 6.3 Eos % (Auto) 0.4 Baso % (Auto) 0.3 Lymph # (Auto) 1.4 [place] # (Auto) 0.6 Eos # (Auto) 0.0 Baso # (Auto) 0.0 Abs Immat Gran (auto) 0.04 H Absolute Neuts (auto) 7.8 Absolute Nucleated RBC 0.000 Nucleated RBC % (auto) 0.0 Sodium 140 Potassium 4.4 Chloride 110 H Carbon Dioxide 23 Anion Gap 11 L BUN 20 H Creatinine 1.94 H Estim Creat Clear Calc 26.5 Estimated GFR 33 Random Glucose 126 H Calcium 11.1 H Magnesium 2.5 Total Bilirubin 0.5 Direct Bilirubin 0.2 AST 22 ALT 17 Alkaline Phosphatase 70 Total Protein 7.0 Albumin 4.5 Urine Color Straw Urine Appearance Cloudy Urine pH 6.5 Ur Specific [place] >= 1.030 H Urine Protein 300 (3+) H Urine Glucose (UA) Negative Urine Ketones Trace Urine Blood Large (3+) H Urine Nitrite Positive H Ur Leukocyte Esterase Moderate (2+) H Urine RBC 3-5 H Urine WBC 11-20 Ur Squamous Epith Cells 3-5 Other Crystals Present Urine Bacteria 4+ Hyaline Casts 0-2 Granular Casts Present Urine Opiates Screen Not Detected Ur Buprenorphine Scrn Not Detected Ur Oxycodone Screen Not Detected Urine Methadone Screen Not Detected Urine Fentanyl Screen Not Detected Ur Barbiturates Screen Not Detected Ur Phencyclidine Scrn Not Detected Ur Amphetamines Screen Not Detected U Benzodiazepines Scrn Not Detected Urine Cocaine Screen Not Detected U Marijuana (THC) Screen Not Detected Ethyl Alcohol 12 Influenza Type A (PCR) NEGATIVE Influenza Type B (PCR) NEGATIVE RSV RNA Qual (PCR) NEGATIVE SARS-CoV-2 RNA (RT-PCR) NEGATIVE Meds/Allergies Meds Home Medications ?Medication ?Instructions ?Recorded ?Confirmed ?Type aspirin 81 mg tablet,delayed 81 mg PO DAILY 05/07/23 06/08/25 History release lorazepam 0.5 mg tablet 0.5 mg PO BID PRN Anxiety 05/07/23 06/09/25 History risperidone 0.5 mg tablet 0.5 mg PO BEDTIME 05/07/23 06/08/25 History cyanocobalamin (vitamin B-12) 1,000 mcg PO DAILY 05/10/25 06/08/25 History 1,000 mcg capsule mirtazapine 30 mg tablet 30 mg PO BEDTIME 05/10/25 06/09/25 History magnesium aspart,citrate,oxide 400 mg PO DAILY 05/30/25 06/08/25 History duloxetine 20 mg capsule,delayed 20 mg PO BEDTIME 06/08/25 06/08/25 History release duloxetine 60 mg capsule,delayed 60 mg PO DAILY 06/09/25 06/09/25 History release mirtazapine 15 mg tablet (Remeron) 15 mg PO BEDTIME 06/09/25 06/09/25 History pantoprazole 40 mg tablet,delayed 40 mg PO DAILY@0630 06/09/25 06/09/25 History release Allergies Allergies Allergy/AdvReac Type Severity Reaction Status Date / Time No Known Allergies Allergy Verified 06/08/25 13:34 Mental Status Exam Mental Status Exam Narrative: Patient is A+Ox4, wearing hospital attire, No ADL's issues, pleasant, and cooperative throughout 1-1 assessment. Mood is with moderate depressed and anxious Fair eye contact. Normal speech and volume/tone. No irritability.Thought process is organized and linear. Memory is intact. Does not appear to have cognitive issues. Thought content is focus on getting better but also want to be discharged soon. No SI/SIB/HI/AVH. Do not make any delusional or paranoid statements. Do not appear to be psychotic. He has knowledge regarding tx hx. Fair insight but poor judgment. Assessment & Plan Assessment & Plan (1) Depression: Status: Acute Code(s): F32.A - Depression, unspecified (2) CKD (chronic kidney disease) stage 3, GFR 30-59 ml/min: Status: Acute Code(s): N18.30 - Chronic kidney disease, stage 3 unspecified (3) Lower urinary tract symptoms: Status: Acute Code(s): R39.9 - Unspecified symptoms and signs involving the genitourinary system (4) Chronic anemia: Status: Acute Code(s): D64.9 - Anemia, unspecified (5) Chronic bacteriuria: Status: Acute Code(s): R82.71 - Bacteriuria Plan HPI: Patient is a 85-year-old , White, Romanian speaking male with medical history of depression, anxiety, CKD stage 3, anemia, chronic bacteria on methenamine presents to the ED due to increased depression and anxiety ,and helplessness the past 4 weeks secondary to increased life stressors which have impacted patient's ability to attend to ADL' s. Pt reports that things have gone down hill since December 2024 when his underwent open heart surgery. Patient has found it hard to adjust with his being ill within the home, having her caretakers come and go , addressing his own medical issues and recently coming to realization he may have to put down his dog soon after a tumor was found; I'm not in a good place . Formulation/clinical reasoning: Increased life stressors, therefore affect patient's current level of functioning, increased in anxiety and depression, feeling helpless, symptoms also increased d/t seasonal weather and holiday which make it harder for patient during this time of the year. Hx of anxiety and depression, hx of being admitted to psychiatric hospital in the past. Given the information, patient would benefit in restrictive environment for safety, and medication management/judgment to target above symptoms. Refer patient back to OP psychiatric services once stable for aftercare. Hospital course: 06/09/25: continue with current home meds.Patient does not wish to have medication changes at this time. Ativan 0.5mg BID PRN for severe anxiety Remeron 45mg daily at HS for depresion/insomnia Cymbalta 60mg in the AM and 20mg at HS for depression Risperidone 0.5mg daily for severe anxiety Trimethoprin 100mg daily: pending. Need to verify if we have it available. Tolterodine 4mg daily for overactive bladder. Methanamine 1grm BID for UTI. Plan Patient on 5 minute checks for safety. Admitted to S1. Section 12B. Patient does not want to be here. Work with treatment team to do collateral with family and OP treaters Contact the hospitalist regarding hospitalist consultation on admission: pending Diagnostic-lab work Discharge planning Patient educated on: diagnosis, medication risk/benefits and therapeutic strategies Informed Consent: understands and further education needed Reason for continued inpatient stay Substantial Risk for: med/psych decompensation Statement Statement: I have reviewed the history and physical and performed a pertinent examination on my patient. No changes have occurred unless specified. If the History and Physical was not performed prior to admission, the Hospitalist's service will be consulted for completing the admission physical. Time Spent With Patient Time: Total time managing care of this patient today ____ minutes.
[2025-06-10 08:00] VITALS: BP 155/86; PULSE 94; RESP 18; TEMP 36.4; O2SAT 94
[2025-06-10] MEDS: Aspirin Enteric Coated 81 MG TABLET.DR PO (08:29)
--- NOTE | 2025-06-10 09:37 | HO.PSYADMNOT ---
HPI Date of Service: 06/10/25 Chief Complaint: depression Sources of Information: patient interviewed, chart reviewed and crisis/core team assessment reviewed HPI Subjective Notes: Carter Warning and Section 12B Narrative: Mr. Reza is an 85 year-old male with hx of MDD who self presented with daughter reporting increased depression and anxiety in context of multiple stressors including caring for whose medical conditions have been worsening, of his dog and anxious mood. He denied SI/HI. Pertinent labs completed in the ED include CMP no electrolyte abnormality, elevated BUN 20 and elevated Cr 1.94 (unclear baseline creatinine as he does have CKD stage 3, per chart seems Cr more around 1.7), creatinine clearance 26.5., elevated Ca 11.1 which has been ongoing (recent note from nephrology had recommended to stop Vit D and calcium), LFT wnl. CBC with chronic and stable normocytic anemia (H&H 12.7/38.4). 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 Social History: He is , retired. Have two children. Live at home with . recently has medical conditions and recently has Heart surgery. He graduated from , had one year in college. Used to work for [employer] for 42 years. Have a dog that keeps him accompanied that has tumor and have to put the dog down. Trauma History: Denies. Report some bad stuff happened to him in the past but they are not bothering him at all. Diagnostics Vital Signs (24Hr): Vital Signs - 24 hr 06/09/25 13:58 06/09/25 20:00 06/10/25 08:00 Temperature 97.7 F 97.6 F 97.6 F Pulse Rate 84 84 94 Respiratory Rate 18 16 18 Blood Pressure 131/74 150/73 H 155/86 H Pulse Oximetry 94 97 94 Oxygen Delivery Method Room Air Room Air Room Air BMI result Body Mass Index 24.4 Labs 06/08/25 13:47 06/08/25 13:47 Labs: Laboratory Results - last 48 hr 06/08/25 06/08/25 06/08/25 13:47 14:23 15:20 WBC 10.0 RBC 4.14 L Hgb 12.7 L Hct 38.4 L MCV 92.8 MCH 30.7 MCHC 33.1 RDW 13.6 Plt Count 253 MPV 9.6 Immature Gran % (Auto) 0.4 Neut % (Auto) 78.4 H Lymph % (Auto) 14.2 L [place] % (Auto) 6.3 Eos % (Auto) 0.4 Baso % (Auto) 0.3 Lymph # (Auto) 1.4 [place] # (Auto) 0.6 Eos # (Auto) 0.0 Baso # (Auto) 0.0 Abs Immat Gran (auto) 0.04 H Absolute Neuts (auto) 7.8 Absolute Nucleated RBC 0.000 Nucleated RBC % (auto) 0.0 Sodium 140 Potassium 4.4 Chloride 110 H Carbon Dioxide 23 Anion Gap 11 L BUN 20 H Creatinine 1.94 H Estim Creat Clear Calc 26.5 Estimated GFR 33 Random Glucose 126 H Calcium 11.1 H Magnesium 2.5 Total Bilirubin 0.5 Direct Bilirubin 0.2 AST 22 ALT 17 Alkaline Phosphatase 70 Total Protein 7.0 Albumin 4.5 Urine Color Straw Urine Appearance Cloudy Urine pH 6.5 Ur Specific [place] >= 1.030 H Urine Protein 300 (3+) H Urine Glucose (UA) Negative Urine Ketones Trace Urine Blood Large (3+) H Urine Nitrite Positive H Ur Leukocyte Esterase Moderate (2+) H Urine RBC 3-5 H Urine WBC 11-20 Ur Squamous Epith Cells 3-5 Other Crystals Present Urine Bacteria 4+ Hyaline Casts 0-2 Granular Casts Present Urine Opiates Screen Not Detected Ur Buprenorphine Scrn Not Detected Ur Oxycodone Screen Not Detected Urine Methadone Screen Not Detected Urine Fentanyl Screen Not Detected Ur Barbiturates Screen Not Detected Ur Phencyclidine Scrn Not Detected Ur Amphetamines Screen Not Detected U Benzodiazepines Scrn Not Detected Urine Cocaine Screen Not Detected U Marijuana (THC) Screen Not Detected Ethyl Alcohol 12 Influenza Type A (PCR) NEGATIVE Influenza Type B (PCR) NEGATIVE RSV RNA Qual (PCR) NEGATIVE SARS-CoV-2 RNA (RT-PCR) NEGATIVE Meds/Allergies Meds Home Medications ?Medication ?Instructions ?Recorded ?Confirmed ?Type aspirin 81 mg tablet,delayed 81 mg PO DAILY 05/07/23 06/08/25 History release lorazepam 0.5 mg tablet 0.5 mg PO BID PRN Anxiety 05/07/23 06/09/25 History risperidone 0.5 mg tablet 0.5 mg PO BEDTIME 05/07/23 06/08/25 History cyanocobalamin (vitamin B-12) 1,000 mcg PO DAILY 05/10/25 06/08/25 History 1,000 mcg capsule mirtazapine 30 mg tablet 30 mg PO BEDTIME 05/10/25 06/09/25 History magnesium aspart,citrate,oxide 400 mg PO DAILY 05/30/25 06/08/25 History duloxetine 20 mg capsule,delayed 20 mg PO BEDTIME 06/08/25 06/08/25 History release duloxetine 60 mg capsule,delayed 60 mg PO DAILY 06/09/25 06/09/25 History release mirtazapine 15 mg tablet (Remeron) 15 mg PO BEDTIME 06/09/25 06/09/25 History pantoprazole 40 mg tablet,delayed 40 mg PO DAILY@0630 06/09/25 06/09/25 History release Allergies Allergies Allergy/AdvReac Type Severity Reaction Status Date / Time No Known Allergies Allergy Verified 06/08/25 13:34 Assessment & Plan Statement Statement: I have reviewed the history and physical and performed a pertinent examination on my patient. No changes have occurred unless specified. If the History and Physical was not performed prior to admission, the Hospitalist's service will be consulted for completing the admission physical. Time Spent With Patient Time: Total time managing care of this patient today ____ minutes.
--- NOTE | 2025-06-10 13:00 | MHC.CLN ---
NUTRITION REPORTED THAT PATIENT NOT EATING WELL PRIOR TO ADM. CHANGING SUPPLEMENT TO ENSURE TID TO PROMOTE NUTRITIONAL INTAKE. SUPPLEMENT PROVIDES 1050 KCALS, 60 G PROTEIN.
--- NOTE | 2025-06-10 13:06 | HO.PSYCHPN ---
Subjective Subjective Date of Service: 06/10/25 Reason For Visit: depression Subjective Notes: Section 12B Interim History: Pt slept 8hrs per nursing. Pt declined labs this morning and yesterday stating that he only gets them from OP labs. He describes mood as sad and he is tearful when talking about his dog who . He denies SI/HI. difficulty finding words at times. He does know the month, year and place. At times requesting to leave but today seems to be in agreement with staying here and adjusting medications. Mental Status Exam Mental Status Exam Narrative: Appearance: wearing hospital gown, fair hygiene, in NAD Behavior: calm, cooperative Psychomotor: some resting tremor Speech: mostly clear, some delayed in response as he has difficulty finding words, spontaneous TP: mostly linear, at times tangential TC: feeling sad Mood: sad Affect: brightens at times, tearful when talking about the dog. SI: denies HI: denies VH/AH: none Delusions: none Insight/judgment: fair x 2. memory/cog: alert, oriented to place, month, year, seems to be confused at times as to why he is admitted and not going home. Pending MOCA/ACL. Diagnostics Vital Signs (24Hr): Vital Signs - 24 hr 06/09/25 13:58 06/09/25 20:00 06/10/25 08:00 Temperature 97.7 F 97.6 F 97.6 F Pulse Rate 84 84 94 Respiratory Rate 18 16 18 Blood Pressure 131/74 150/73 H 155/86 H Pulse Oximetry 94 97 94 Oxygen Delivery Method Room Air Room Air Room Air BMI result Body Mass Index 24.4 Labs 06/08/25 13:47 06/08/25 13:47 Labs: Laboratory Results - last 48 hr 06/08/25 06/08/25 06/08/25 13:47 14:23 15:20 WBC 10.0 RBC 4.14 L Hgb 12.7 L Hct 38.4 L MCV 92.8 MCH 30.7 MCHC 33.1 RDW 13.6 Plt Count 253 MPV 9.6 Immature Gran % (Auto) 0.4 Neut % (Auto) 78.4 H Lymph % (Auto) 14.2 L Greer % (Auto) 6.3 Eos % (Auto) 0.4 Baso % (Auto) 0.3 Lymph # (Auto) 1.4 Greer # (Auto) 0.6 Eos # (Auto) 0.0 Baso # (Auto) 0.0 Abs Immat Gran (auto) 0.04 H Absolute Neuts (auto) 7.8 Absolute Nucleated RBC 0.000 Nucleated RBC % (auto) 0.0 Sodium 140 Potassium 4.4 Chloride 110 H Carbon Dioxide 23 Anion Gap 11 L BUN 20 H Creatinine 1.94 H Estim Creat Clear Calc 26.5 Estimated GFR 33 Random Glucose 126 H Calcium 11.1 H Magnesium 2.5 Total Bilirubin 0.5 Direct Bilirubin 0.2 AST 22 ALT 17 Alkaline Phosphatase 70 Total Protein 7.0 Albumin 4.5 Urine Color Straw Urine Appearance Cloudy Urine pH 6.5 Ur Specific Rodman >= 1.030 H Urine Protein 300 (3+) H Urine Glucose (UA) Negative Urine Ketones Trace Urine Blood Large (3+) H Urine Nitrite Positive H Ur Leukocyte Esterase Moderate (2+) H Urine RBC 3-5 H Urine WBC 11-20 Ur Squamous Epith Cells 3-5 Other Crystals Present Urine Bacteria 4+ Hyaline Casts 0-2 Granular Casts Present Urine Opiates Screen Not Detected Ur Buprenorphine Scrn Not Detected Ur Oxycodone Screen Not Detected Urine Methadone Screen Not Detected Urine Fentanyl Screen Not Detected Ur Barbiturates Screen Not Detected Ur Phencyclidine Scrn Not Detected Ur Amphetamines Screen Not Detected U Benzodiazepines Scrn Not Detected Urine Cocaine Screen Not Detected U Marijuana (THC) Screen Not Detected Ethyl Alcohol 12 Influenza Type A (PCR) NEGATIVE Influenza Type B (PCR) NEGATIVE RSV RNA Qual (PCR) NEGATIVE SARS-CoV-2 RNA (RT-PCR) NEGATIVE Medications Medications Current Medications Acetaminophen (Acetaminophen 325 Mg Tablet) 650 mg PO Q6H PRN PRN Reason: Headache/Pain, Scale 1-10 Al Hydroxide/Mg Hydroxide (Magnesium Hydrox/Alum Hydrox 30 Ml Oral.Susp) 30 ml PO Q6H PRN PRN Reason: Heartburn/Nausea Ascorbic Acid (Ascorbic Acid 500 Mg Tablet) 1,000 mg PO DAILY [facility] Last Admin: 06/10/25 08:34 Dose: Not Given Aspirin (Aspirin Enteric Coated 81 Mg Tablet.Dr) 81 mg PO DAILY [facility] Last Admin: 06/10/25 08:29 Dose: 81 mg Atorvastatin Calcium (Atorvastatin Calcium 40 Mg Tablet) 40 mg PO BEDTIME [facility] Last Admin: 06/09/25 20:43 Dose: 40 mg Cyanocobalamin (Cyanocobalamin (Vitamin B-12) 1,000 Mcg Tablet) 1,000 mcg PO DAILY [facility] Last Admin: 06/10/25 08:29 Dose: 1,000 mcg Duloxetine HCl (Duloxetine Hcl 20 Mg Capsule.) 20 mg PO .pm [facility] Duloxetine HCl (Duloxetine Hcl 60 Mg Capsule.) 60 mg PO DAILY [facility] Last Admin: 06/10/25 08:31 Dose: 60 mg Finasteride (Finasteride 5 Mg Tablet) 5 mg PO DAILY [facility] Last Admin: 06/10/25 08:34 Dose: Not Given Hydroxyzine HCl (Hydroxyzine Hcl 25 Mg Tablet) 25 mg PO Q6H PRN PRN Reason: mild anxiety Lorazepam (Lorazepam 0.5 Mg Tablet) 0.5 mg PO BID PRN PRN Reason: Anxiety Magnesium Hydroxide (Milk Of Magnesia 30 Ml Oral.Susp) 30 ml PO DAILY PRN PRN Reason: Constipation Magnesium Oxide (Magnesium Oxide 400 Mg Tablet) 400 mg PO DAILY [facility] Last Admin: 06/10/25 08:28 Dose: 400 mg Methenamine Hippurate (Methenamine Hippurate 1 Gm Tablet) 1 gm PO BID [facility] Last Admin: 06/10/25 08:29 Dose: 1 gm Mirtazapine (Mirtazapine 15 Mg Tablet) 45 mg PO BEDTIME [facility] Last Admin: 06/09/25 20:43 Dose: 45 mg Non-Formulary Medication (Trimethoprim) 100 mg PO DAILY [facility] Omeprazole (Omeprazole 20 Mg Capsule.) 20 mg PO DAILY@0630 [facility] Last Admin: 06/10/25 06:36 Dose: 20 mg Risperidone (Risperidone 0.5 Mg Tablet) 0.5 mg PO DAILY [facility] Last Admin: 06/10/25 08:30 Dose: 0.5 mg Tolterodine Tartrate (Tolterodine Tartrate La 4 Mg Cap.Er.24h) 4 mg PO DAILY [facility] Last Admin: 06/10/25 08:29 Dose: 4 mg Trazodone HCl (Trazodone Hcl 50 Mg Tablet) 50 mg PO BEDTIME MRX1 PRN PRN Reason: Insomnia Allergies Allergies Allergy/AdvReac Type Severity Reaction Status Date / Time No Known Allergies Allergy Verified 06/08/25 13:34 Assessment & Plan Assessment & Plan (1) MDD (major depressive disorder), recurrent episode, moderate: Status: Acute Code(s): F33.1 - Major depressive disorder, recurrent, moderate (2) CKD (chronic kidney disease) stage 3, GFR 30-59 ml/min: Status: Acute Code(s): N18.30 - Chronic kidney disease, stage 3 unspecified (3) Lower urinary tract symptoms: Status: Acute Code(s): R39.9 - Unspecified symptoms and signs involving the genitourinary system (4) Chronic anemia: Status: Acute Code(s): D64.9 - Anemia, unspecified (5) Chronic bacteriuria: Status: Acute Code(s): R82.71 - Bacteriuria Plan HPI: Patient is a 85-year-old , White, [place] speaking male with medical history of depression, anxiety, CKD stage 3, anemia, 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 No SI/HI. discussed risks, benefits and alternative treatment. . Hospital course: 06/09/25: continue with current home meds.Patient does not wish to have medication changes at this time. Ativan 0.5mg BID PRN for severe anxiety Remeron 45mg daily at HS for depresion/insomnia Cymbalta 60mg in the AM and 20mg at HS for depression Risperidone 0.5mg daily for severe anxiety Trimethoprin 100mg daily: pending. Need to verify if we have it available. Tolterodine 4mg daily for overactive bladder. Methanamine 1grm BID for UTI. 06/10 creatinine clearance in the ED is less than 30, concern in terms of excretion of duloxetine which has recently been increased. pt declined labs today and unclear if BUN/Cr si trending down or up. pt explained reason for labs now as seems his baseline creatinine is 1.7 and in the ED 1.9 with elevated specific gravity. He has been seen eating and drinking here on the unit but it still concern in terms of not knowing how renal function is treding. will decrease for now duloxetine to 20mg po BID. pending collateral information from OP prescriber Kasia Alexander. continue remeron 45mg po qhs. ativan and risperidone. pending cognitive/memory assessments, I do suspect underlying cognitive disorder. Reason for continued inpatient stay Substantial Risk for: inability to function Time Spent With Patient Time: Total time managing care of this patient today ____ minutes.
[2025-06-10 17:21] LABS: Alanine Aminotransferase 17 U/L (0-40); Albumin Level 4.7 g/dL (3.5-5.0); Alkaline Phosphatase 71 U/L (39-117); Anion Gap 13 (12-20); Aspartate Amino Transferase 26 U/L (5-37); Blood Urea Nitrogen 31 mg/dL (9-16); Calcium 11.3 mg/dL (8.4-10.2); Carbon Dioxide 22 mmol/L (22-29); Chloride 108 mmol/L (96-108); Cholesterol 141 mg/dL (<200); Creatinine Clr Calc Pharmacy 31.3; Estimated Glomerular Filt Rate 40; HDL Cholesterol 50 mg/dL (>40); Potassium 4.5 mmol/L (3.3-5.1); Sodium 138 mmol/L (135-145); Total Protein 7.6 g/dL (6.5-8.0); Triglycerides 146 mg/dL (<150)
[2025-06-10 17:28] LABS: Parathyroid Hormone Intact 174.2 pg/mL (8.7-77.1)
[2025-06-10 20:00] VITALS: BP 132/69; PULSE 80; RESP 16; TEMP 36.5; O2SAT 95
[2025-06-11 08:10] VITALS: BP 121/77; PULSE 88; RESP 16; TEMP 36.1; O2SAT 94
[2025-06-11] MEDS: Aspirin Enteric Coated 81 MG TABLET.DR PO (08:51)
--- NOTE | 2025-06-11 18:05 | P.PNPSI_ITS ---
Subjective Subjective Date of Service: 06/11/25 Reason For Visit: depression Interim History: Met with patient; discussed with team Patient reports some anxiety and depression; slept well Reviewed creatinine which is down Mental Status Exam Mental Status Exam Narrative: Appearance: Appropriate, fair hygiene, in NAD Behavior: calm, cooperative Psychomotor: some resting tremor Speech: mostly clear, some delayed in response as he has difficulty finding words, spontaneous TP: mostly linear, TC: Treatment Mood: Some depression Affect: Congruent SI: denies HI: denies VH/AH: none Delusions: none Insight/judgment: Impaired Diagnostics Vital Signs (24Hr): Vital Signs - 24 hr 06/10/25 20:00 06/11/25 08:10 Temperature 97.7 F 96.9 F Pulse Rate 80 88 Respiratory Rate 16 16 Blood Pressure 132/69 121/77 Pulse Oximetry 95 94 Oxygen Delivery Method Room Air Room Air BMI result Body Mass Index 24.4 Labs 06/08/25 13:47 06/10/25 16:56 Labs: Laboratory Results - last 48 hr 06/10/25 06/10/25 06/10/25 16:56 16:56 16:56 Sodium Cancelled 138 Potassium Cancelled 4.5 Chloride Cancelled Carbon Dioxide Anion Gap BUN Creatinine Estim Creat Clear Calc Estimated GFR Random Glucose Estimat Average Glucose Hemoglobin A1c % Calcium Total Bilirubin AST ALT Alkaline Phosphatase Total Protein Albumin Triglycerides Cholesterol LDL Cholesterol, Calc HDL Cholesterol PTH Intact 06/10/25 06/10/25 06/10/25 16:56 16:56 16:56 Sodium Potassium Chloride 108 Carbon Dioxide Cancelled 22 Anion Gap Cancelled 13 BUN Cancelled Creatinine Estim Creat Clear Calc Estimated GFR Random Glucose Estimat Average Glucose Hemoglobin A1c % Calcium Total Bilirubin AST ALT Alkaline Phosphatase Total Protein Albumin Triglycerides Cholesterol LDL Cholesterol, Calc HDL Cholesterol PTH Intact 06/10/25 06/10/25 06/10/25 16:56 16:56 16:56 Sodium Potassium Chloride Carbon Dioxide Anion Gap BUN 31 H Creatinine Cancelled 1.64 H Estim Creat Clear Calc Cancelled 31.3 Estimated GFR Cancelled Random Glucose Estimat Average Glucose Hemoglobin A1c % Calcium Total Bilirubin AST ALT Alkaline Phosphatase Total Protein Albumin Triglycerides Cholesterol LDL Cholesterol, Calc HDL Cholesterol PTH Intact 06/10/25 06/10/25 06/10/25 16:56 16:56 16:56 Sodium Potassium Chloride Carbon Dioxide Anion Gap BUN Creatinine Estim Creat Clear Calc Estimated GFR 40 Random Glucose Cancelled 101 Estimat Average Glucose 114 Hemoglobin A1c % 5.6 Calcium Cancelled 11.3 H Total Bilirubin Cancelled AST ALT Alkaline Phosphatase Total Protein Albumin Triglycerides Cholesterol LDL Cholesterol, Calc HDL Cholesterol PTH Intact 06/10/25 06/10/25 06/10/25 16:56 16:56 16:56 Sodium Potassium Chloride Carbon Dioxide Anion Gap BUN Creatinine Estim Creat Clear Calc Estimated GFR Random Glucose Estimat Average Glucose Hemoglobin A1c % Calcium Total Bilirubin 0.4 AST Cancelled 26 ALT Cancelled 17 Alkaline Phosphatase Cancelled Total Protein Albumin Triglycerides Cholesterol LDL Cholesterol, Calc HDL Cholesterol PTH Intact 06/10/25 06/10/25 06/10/25 16:56 16:56 16:56 Sodium Potassium Chloride Carbon Dioxide Anion Gap BUN Creatinine Estim Creat Clear Calc Estimated GFR Random Glucose Estimat Average Glucose Hemoglobin A1c % Calcium Total Bilirubin AST ALT Alkaline Phosphatase 71 Total Protein Cancelled 7.6 Albumin Cancelled 4.7 Triglycerides 146 Cholesterol 141 LDL Cholesterol, Calc 62 HDL Cholesterol 50 PTH Intact 174.2 H Medications Medications Current Medications Acetaminophen (Acetaminophen 325 Mg Tablet) 650 mg PO Q6H PRN PRN Reason: Headache/Pain, Scale 1-10 Al Hydroxide/Mg Hydroxide (Magnesium Hydrox/Alum Hydrox 30 Ml Oral.Susp) 30 ml PO Q6H PRN PRN Reason: Heartburn/Nausea Ascorbic Acid (Ascorbic Acid 500 Mg Tablet) 1,000 mg PO DAILY [facility] Last Admin: 06/11/25 08:49 Dose: 1,000 mg Aspirin (Aspirin Enteric Coated 81 Mg Tablet.) 81 mg PO DAILY [facility] Last Admin: 06/11/25 08:51 Dose: 81 mg Atorvastatin Calcium (Atorvastatin Calcium 40 Mg Tablet) 40 mg PO BEDTIME [facility] Last Admin: 06/10/25 20:28 Dose: 40 mg Cyanocobalamin (Cyanocobalamin (Vitamin B-12) 1,000 Mcg Tablet) 1,000 mcg PO DAILY [facility] Last Admin: 06/11/25 08:50 Dose: 1,000 mcg Duloxetine HCl (Duloxetine Hcl 20 Mg Capsule.) 20 mg PO .pm [facility] Duloxetine HCl (Duloxetine Hcl 60 Mg Capsule.) 60 mg PO DAILY [facility] Last Admin: 06/11/25 08:50 Dose: 60 mg Finasteride (Finasteride 5 Mg Tablet) 5 mg PO DAILY [facility] Last Admin: 06/11/25 08:52 Dose: 5 mg Hydroxyzine HCl (Hydroxyzine Hcl 25 Mg Tablet) 25 mg PO Q6H PRN PRN Reason: mild anxiety Lorazepam (Lorazepam 0.5 Mg Tablet) 0.5 mg PO BID PRN PRN Reason: Anxiety Magnesium Hydroxide (Milk Of Magnesia 30 Ml Oral.Susp) 30 ml PO DAILY PRN PRN Reason: Constipation Magnesium Oxide (Magnesium Oxide 400 Mg Tablet) 400 mg PO DAILY [facility] Last Admin: 06/11/25 08:51 Dose: 400 mg Methenamine Hippurate (Methenamine Hippurate 1 Gm Tablet) 1 gm PO BID [facility] Last Admin: 06/11/25 08:51 Dose: 1 gm Mirtazapine (Mirtazapine 15 Mg Tablet) 45 mg PO BEDTIME [facility] Last Admin: 06/10/25 20:28 Dose: 45 mg Non-Formulary Medication (Trimethoprim) 100 mg PO DAILY [facility] Omeprazole (Omeprazole 20 Mg Capsule.Dr) 20 mg PO DAILY@0630 [facility] Last Admin: 06/11/25 05:54 Dose: 20 mg Risperidone (Risperidone 0.5 Mg Tablet) 0.5 mg PO DAILY [facility] Last Admin: 06/11/25 08:51 Dose: 0.5 mg Tolterodine Tartrate (Tolterodine Tartrate La 4 Mg Cap.Er.24h) 4 mg PO DAILY [facility] Last Admin: 06/11/25 08:50 Dose: 4 mg Trazodone HCl (Trazodone Hcl 50 Mg Tablet) 50 mg PO BEDTIME MRX1 PRN PRN Reason: Insomnia Allergies Allergies Allergy/AdvReac Type Severity Reaction Status Date / Time No Known Allergies Allergy Verified 06/08/25 13:34 Assessment & Plan Assessment & Plan (1) MDD (major depressive disorder), recurrent episode, moderate: Status: Acute Code(s): F33.1 - Major depressive disorder, recurrent, moderate (2) CKD (chronic kidney disease) stage 3, GFR 30-59 ml/min: Status: Acute Code(s): N18.30 - Chronic kidney disease, stage 3 unspecified (3) Lower urinary tract symptoms: Status: Acute Code(s): R39.9 - Unspecified symptoms and signs involving the genitourinary system (4) Chronic anemia: Status: Acute Code(s): D64.9 - Anemia, unspecified (5) Chronic bacteriuria: Status: Acute Code(s): R82.71 - Bacteriuria Plan HPI: Patient is a 85-year-old , White, Croatian speaking male with medical history of depression, anxiety, CKD stage 3, anemia, 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 No SI/HI. discussed risks, benefits and alternative treatment. . Hospital course: 06/09/25: continue with current home meds.Patient does not wish to have medication changes at this time. Ativan 0.5mg BID PRN for severe anxiety Remeron 45mg daily at HS for depresion/insomnia Cymbalta 60mg in the AM and 20mg at HS for depression Risperidone 0.5mg daily for severe anxiety Trimethoprin 100mg daily: pending. Need to verify if we have it available. Tolterodine 4mg daily for overactive bladder. Methanamine 1grm BID for UTI. 06/10 creatinine clearance in the ED is less than 30, concern in terms of excretion of duloxetine which has recently been increased. pt declined labs today and unclear if BUN/Cr si trending down or up. pt explained reason for labs now as seems his baseline creatinine is 1.7 and in the ED 1.9 with elevated specific gravity. He has been seen eating and drinking here on the unit but it still concern in terms of not knowing how renal function is treding. will decrease for now duloxetine to 20mg po BID. pending collateral information from OP prescriber Kasia Alexander. continue remeron 45mg po qhs. ativan and risperidone. pending cognitive/memory assessments, I do suspect underlying cognitive disorder. Patient educated on: diagnosis, medication risk/benefits and medical condition Informed Consent: understands and further education needed Reason for continued inpatient stay Substantial Risk for: med/psych decompensation Time Spent With Patient Time: Total time managing care of this patient today ____ minutes.
[2025-06-11 20:00] VITALS: BP 124/72; PULSE 82; RESP 17; TEMP 36.7; O2SAT 97
[2025-06-12 08:33] VITALS: BP 123/61; PULSE 74; RESP 18; TEMP 36.8; O2SAT 94
[2025-06-12] MEDS: Aspirin Enteric Coated 81 MG TABLET.DR PO (08:36)
--- NOTE | 2025-06-12 09:43 | P.PNPSI_ITS ---
Subjective Subjective Date of Service: 06/12/25 Reason For Visit: depression Interim History: late entry note for patient seen on 06/12/25 Patient says he is okay... The same Mental Status Exam Mental Status Exam Narrative: Appearance: Appropriate, fair hygiene, in NAD Behavior: calm, cooperative Psychomotor: some resting tremor Speech: mostly clear, some delayed in response as he has difficulty finding words, spontaneous TP: mostly linear, TC: Treatment Mood: ok Affect: Congruent SI: denies HI: denies VH/AH: none Delusions: none Insight/judgment: Impaired Diagnostics Vital Signs (24Hr): Vital Signs - 24 hr 06/12/25 20:26 06/13/25 08:15 Temperature 98.1 F 97.3 F Pulse Rate 65 89 Respiratory Rate 15 16 Blood Pressure 108/58 L 135/73 Pulse Oximetry 95 96 Oxygen Delivery Method Room Air BMI result Body Mass Index 24.4 Labs 06/08/25 13:47 06/10/25 16:56 Medications Medications Current Medications Acetaminophen (Acetaminophen 325 Mg Tablet) 650 mg PO Q6H PRN PRN Reason: Headache/Pain, Scale 1-10 Al Hydroxide/Mg Hydroxide (Magnesium Hydrox/Alum Hydrox 30 Ml Oral.Susp) 30 ml PO Q6H PRN PRN Reason: Heartburn/Nausea Ascorbic Acid (Ascorbic Acid 500 Mg Tablet) 1,000 mg PO DAILY [facility] Last Admin: 06/13/25 09:07 Dose: 1,000 mg Aspirin (Aspirin Enteric Coated 81 Mg Tablet.) 81 mg PO DAILY [facility] Last Admin: 06/13/25 09:09 Dose: 81 mg Atorvastatin Calcium (Atorvastatin Calcium 40 Mg Tablet) 40 mg PO BEDTIME [facility] Last Admin: 06/12/25 20:27 Dose: 40 mg Cyanocobalamin (Cyanocobalamin (Vitamin B-12) 1,000 Mcg Tablet) 1,000 mcg PO DAILY [facility] Last Admin: 06/13/25 09:09 Dose: 1,000 mcg Duloxetine HCl (Duloxetine Hcl 20 Mg Capsule.) 20 mg PO .pm [facility] Duloxetine HCl (Duloxetine Hcl 60 Mg Capsule.) 60 mg PO DAILY [facility] Last Admin: 06/13/25 09:08 Dose: 60 mg Finasteride (Finasteride 5 Mg Tablet) 5 mg PO DAILY [facility] Last Admin: 06/13/25 09:10 Dose: 5 mg Hydroxyzine HCl (Hydroxyzine Hcl 25 Mg Tablet) 25 mg PO Q6H PRN PRN Reason: mild anxiety Lorazepam (Lorazepam 0.5 Mg Tablet) 0.5 mg PO BID PRN PRN Reason: Anxiety Magnesium Hydroxide (Milk Of Magnesia 30 Ml Oral.Susp) 30 ml PO DAILY PRN PRN Reason: Constipation Magnesium Oxide (Magnesium Oxide 400 Mg Tablet) 400 mg PO DAILY [facility] Last Admin: 06/13/25 09:09 Dose: 400 mg Methenamine Hippurate (Methenamine Hippurate 1 Gm Tablet) 1 gm PO BID [facility] Last Admin: 06/13/25 09:10 Dose: 1 gm Mirtazapine (Mirtazapine 15 Mg Tablet) 45 mg PO BEDTIME [facility] Last Admin: 06/12/25 20:28 Dose: 45 mg Non-Formulary Medication (Trimethoprim) 100 mg PO DAILY [facility] Omeprazole (Omeprazole 20 Mg Capsule.Dr) 20 mg PO DAILY@0630 [facility] Last Admin: 06/13/25 05:52 Dose: 20 mg Risperidone (Risperidone 0.5 Mg Tablet) 0.5 mg PO DAILY [facility] Last Admin: 06/13/25 09:10 Dose: 0.5 mg Tolterodine Tartrate (Tolterodine Tartrate La 4 Mg Cap.Er.24h) 4 mg PO DAILY [facility] Last Admin: 06/13/25 09:10 Dose: 4 mg Trazodone HCl (Trazodone Hcl 50 Mg Tablet) 50 mg PO BEDTIME MRX1 PRN PRN Reason: Insomnia Allergies Allergies Allergy/AdvReac Type Severity Reaction Status Date / Time No Known Allergies Allergy Verified 06/08/25 13:34 Assessment & Plan Assessment & Plan (1) MDD (major depressive disorder), recurrent episode, moderate: Status: Acute Code(s): F33.1 - Major depressive disorder, recurrent, moderate (2) CKD (chronic kidney disease) stage 3, GFR 30-59 ml/min: Status: Acute Code(s): N18.30 - Chronic kidney disease, stage 3 unspecified (3) Lower urinary tract symptoms: Status: Acute Code(s): R39.9 - Unspecified symptoms and signs involving the genitourinary system (4) Chronic anemia: Status: Acute Code(s): D64.9 - Anemia, unspecified (5) Chronic bacteriuria: Status: Acute Code(s): R82.71 - Bacteriuria Plan HPI: Patient is a 85-year-old , White, Danish speaking male with medical history of depression, anxiety, CKD stage 3, anemia, 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 No SI/HI. discussed risks, benefits and alternative treatment. . Hospital course: 06/09/25: continue with current home meds.Patient does not wish to have medication changes at this time. Ativan 0.5mg BID PRN for severe anxiety Remeron 45mg daily at HS for depresion/insomnia Cymbalta 60mg in the AM and 20mg at HS for depression Risperidone 0.5mg daily for severe anxiety Trimethoprin 100mg daily: pending. Need to verify if we have it available. Tolterodine 4mg daily for overactive bladder. Methanamine 1grm BID for UTI. 06/10 creatinine clearance in the ED is less than 30, concern in terms of excretion of duloxetine which has recently been increased. pt declined labs today and unclear if BUN/Cr si trending down or up. pt explained reason for labs now as seems his baseline creatinine is 1.7 and in the ED 1.9 with elevated specific gravity. He has been seen eating and drinking here on the unit but it still concern in terms of not knowing how renal function is treding. will decrease for now duloxetine to 20mg po BID. pending collateral information from OP prescriber Kasia Alexander. continue remeron 45mg po qhs. ativan and risperidone. pending cognitive/memory assessments, I do suspect underlying cognitive disorder. Patient educated on: diagnosis Informed Consent: further education needed Reason for continued inpatient stay Substantial Risk for: rapid decompensation Time Spent With Patient Time: Total time managing care of this patient today ____ minutes.
[2025-06-12 20:26] VITALS: BP 108/58; PULSE 65; RESP 15; TEMP 36.7; O2SAT 95
[2025-06-13 08:15] VITALS: BP 135/73; PULSE 89; RESP 16; TEMP 36.3; O2SAT 96
[2025-06-13] MEDS: Aspirin Enteric Coated 81 MG TABLET.DR PO (09:09)
--- NOTE | 2025-06-13 09:16 | P.CONHOSP_ITS ---
History of Present Illness Data of Consult Service Date: 06/13/25 Primary Care Provider: Shane Summers MD [facility] Reason for consult: Medical H & P 85-year-old male with past medical history of depression, anxiety, chronic kidney disease stage 3, anemia, recurrent UTI, presented to the ED with increased depression and anxiety. He any chest pain shortness of breath, abdominal pain, nausea, vomiting diarrhea, difficulty urinating, or headaches. ED workup with no leukocytosis or leukopenia, stable anemia, creatinine of 1.94, urinalysis abnormal with protein blood nitrites leukocyte esterase RBCs and 4+ bacteria, patient is on methenamine so he was not treated with antibiotics. , U tox was negative. EKG revealed normal sinus rhythm. Review of Systems 2 Review of Systems: Denies any shortness of breath, chest pain, headaches, dysuria, abdominal pain or discomfort, nausea, vomiting or diarrhea. Denies fever or chills. [facility] Medical History Chronic anemia CKD (chronic kidney disease) stage 3, GFR 30-59 ml/min Atypical pigmented skin lesion Chronic bacteriuria Family History Mother Hx of heart bypass surgery Father Throat cancer Social History Household Members: Spouse Housing: House Do you presently have visiting nurse or other home services: No Alcohol intake: former Comment: on 15 minute checks Patient Tobacco Use Status: Former Tobacco user Currently Displaying Signs/Symptoms of Drug Intoxication Withdrawal: No Have you been hit, kicked, punched, or otherwise hurt by someone within the past year? If so, by whom?: No Do you feel safe in your current relationship?: Yes Is there a partner from a previous relationship who is making you feel unsafe now?: No Are you made to feel afraid or neglected: No Spiritual Healthcare Practices: yes Advance Directives: No Advance Directives Information Provided: No Do you have thoughts of harming others: None Do you have a plan to hurt others: No Plan Recently lost weight without trying: No Nutrition Risks: No Nutritional Risk Poor oral hygiene: No service: Yes ([employer] for four years; honorable discharge) Current occupational status: retired Sexual orientation: Straight/Heterosexual Cognitive needs: No Hearing needs: No Vision needs: Yes (reading glases/cheaters) Meds Allergies Allergy/AdvReac Type Severity Reaction Status Date / Time No Known Allergies Allergy Verified 06/08/25 13:34 Active Medications: Current Medications Acetaminophen (Acetaminophen 325 Mg Tablet) 650 mg PO Q6H PRN PRN Reason: Headache/Pain, Scale 1-10 Al Hydroxide/Mg Hydroxide (Magnesium Hydrox/Alum Hydrox 30 Ml Oral.Susp) 30 ml PO Q6H PRN PRN Reason: Heartburn/Nausea Ascorbic Acid (Ascorbic Acid 500 Mg Tablet) 1,000 mg PO DAILY [facility] Last Admin: 06/13/25 09:07 Dose: 1,000 mg Aspirin (Aspirin Enteric Coated 81 Mg Tablet.) 81 mg PO DAILY [facility] Last Admin: 06/13/25 09:09 Dose: 81 mg Atorvastatin Calcium (Atorvastatin Calcium 40 Mg Tablet) 40 mg PO BEDTIME [facility] Last Admin: 06/12/25 20:27 Dose: 40 mg Cyanocobalamin (Cyanocobalamin (Vitamin B-12) 1,000 Mcg Tablet) 1,000 mcg PO DAILY [facility] Last Admin: 06/13/25 09:09 Dose: 1,000 mcg Duloxetine HCl (Duloxetine Hcl 20 Mg Capsule.) 20 mg PO .pm [facility] Duloxetine HCl (Duloxetine Hcl 60 Mg Capsule.) 60 mg PO DAILY [facility] Last Admin: 06/13/25 09:08 Dose: 60 mg Finasteride (Finasteride 5 Mg Tablet) 5 mg PO DAILY [facility] Last Admin: 06/13/25 09:10 Dose: 5 mg Hydroxyzine HCl (Hydroxyzine Hcl 25 Mg Tablet) 25 mg PO Q6H PRN PRN Reason: mild anxiety Lorazepam (Lorazepam 0.5 Mg Tablet) 0.5 mg PO BID PRN PRN Reason: Anxiety Magnesium Hydroxide (Milk Of Magnesia 30 Ml Oral.Susp) 30 ml PO DAILY PRN PRN Reason: Constipation Magnesium Oxide (Magnesium Oxide 400 Mg Tablet) 400 mg PO DAILY [facility] Last Admin: 06/13/25 09:09 Dose: 400 mg Methenamine Hippurate (Methenamine Hippurate 1 Gm Tablet) 1 gm PO BID [facility] Last Admin: 06/13/25 09:10 Dose: 1 gm Mirtazapine (Mirtazapine 15 Mg Tablet) 45 mg PO BEDTIME [facility] Last Admin: 06/12/25 20:28 Dose: 45 mg Non-Formulary Medication (Trimethoprim) 100 mg PO DAILY [facility] Omeprazole (Omeprazole 20 Mg Capsule.Dr) 20 mg PO DAILY@0630 [facility] Last Admin: 06/13/25 05:52 Dose: 20 mg Risperidone (Risperidone 0.5 Mg Tablet) 0.5 mg PO DAILY [facility] Last Admin: 06/13/25 09:10 Dose: 0.5 mg Tolterodine Tartrate (Tolterodine Tartrate La 4 Mg Cap.Er.24h) 4 mg PO DAILY [facility] Last Admin: 06/13/25 09:10 Dose: 4 mg Trazodone HCl (Trazodone Hcl 50 Mg Tablet) 50 mg PO BEDTIME MRX1 PRN PRN Reason: Insomnia Home Medications ?Medication ?Instructions ?Recorded ?Confirmed ?Last Taken ?Type aspirin 81 mg tablet,delayed 81 mg PO DAILY 05/07/23 1 08/08/24 06/08/25 History release lorazepam 0.5 mg tablet 0.5 mg PO BID PRN Anxiety 06/09/25 06/08/25 History risperidone 0.5 mg tablet 0.5 mg PO BEDTIME 05/07/23 1 08/08/24 06/08/25 History cyanocobalamin (vitamin B-12) 1,000 mcg PO DAILY 05/1006/08/25 06/08/25 History 1,000 mcg capsule mirtazapine 30 mg tablet 30 mg PO BEDTIME 05/10/2506/08/25 History magnesium aspart,citrate,oxide 400 mg PO DAILY 5 06/08/25 06/08/25 History duloxetine 20 mg capsule,delayed 20 mg PO BEDTIME 05/2106/08/25 06/08/25 History release duloxetine 60 mg capsule,delayed 60 mg PO DAILY 06/09/25 06/08/25 History release mirtazapine 15 mg tablet (Remeron) 15 mg PO BEDTIME 06/09/25 06/08/25 History pantoprazole 40 mg tablet,delayed 40 mg PO DAILY@0630 06/09/25 06/09/25 06/08/25 History release Physical Exam 2 Vital Signs and Narrative: Vital Signs: Last Vital Signs Temp 97.3 F 06/13/25 08:15 Pulse 89 06/13/25 08:15 Resp 16 06/13/25 08:15 BP 135/73 06/13/25 08:15 Pulse Ox 96 06/13/25 08:15 O2 Del Method Room Air 06/13/25 08:15 BMI result Body Mass Index 24.4 GENERAL APPEARANCE: ?AxOx4, generally well-appearing, calm. Answers questions HEENT: ?Moist mucous membranes HEART:? Normal rate and regular rhythm, normal S1/S2 LUNGS:? CTAB, moving air well. No crackles or wheezes are heard. ABDOMEN: ?Soft, nontender, nondistended with +BS times 4 EXTREMITIES: No edema NEUROLOGICAL: CN II-X11 intact, no focal deficits, visual acuity intact Skin: ?Warm and dry without any rash. Results Labs 06/08/25 13:47 06/10/25 16:56 Assessment and Plan (1) CKD (chronic kidney disease) stage 3, GFR 30-59 ml/min: Status: Acute (2) Primary hyperparathyroidism: Status: Acute Plan 85-year-old male with past medical history listed below presented to emergency room with increased depression and anxiety, now admitted to inpatient [facility] for stabilization. 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 Continue Proscar Follow up by ID and Urology. Stage III chronic kidney disease/Primary hyperparathyroidism Baseline creatinine 1.7- Stable Continue to periodically monitor Avoid nephrotoxins Patient with elevated PTH and calcium levels, followed by Nephrology out patient. Calcium and vitamin-D discontinued. Hyperlipidemia Continue Lipitor and aspirin GERD Continue omeprazole Constipation Patient takes senna twice daily and Colace twice daily for bowel management Thank you for allowing me to participate in the care of this patient. Will follow with you, please notify medical provider with any changes in condition or concerns.
--- NOTE | 2025-06-13 10:03 | P.PNPSI_ITS ---
Subjective Subjective Date of Service: 06/13/25 Reason For Visit: depression Subjective Notes: Section 12B Interim History: Pt sleeping through the night. He reports feeling fine. reports being on the unit has helped as cooling off period. He has been taking medications. No SI/HI. He has been visible on the unit. No psychosis. No delusional content. His sect 12b will be up tomorrow. He wants to go. there are no safety concerns in terms of SI/HI. Obtained collateral information from daughter who reports Shakir was over sleeping, crying, depressed when he was at home. She thinks he is very in terms of his mood but worries that once he goes back may again feel overwhelmed. Also spoke with Kasia Fontenot- pt's prescriber, discussed concern of higher doses of duloxetine with his creatinine clearance of less than 30. Review of Systems Review of Systems Denies any shortness of breath, chest pain, headaches, dysuria, abdominal pain or discomfort, nausea, vomiting or diarrhea. Denies fever or chills. Yes all other systems are reviewed and are negative Mental Status Exam Mental Status Exam Narrative: Appearance: wearing hospital gown, fair hygiene, in NAD Behavior: calm, cooperative Psychomotor: some resting tremor Speech: mostly clear, some delayed in response as he has difficulty finding words, spontaneous TP: mostly linear, at times tangential TC: feeling sad Mood: sad Affect: brightens at times, tearful when talking about the dog. SI: denies HI: denies VH/AH: none Delusions: none Insight/judgment: fair x 2. memory/cog: alert, oriented to place, month, year, seems to be confused at times as to why he is admitted and not going home. ACL 3.4, MOCA 17/30 with impairments in executive function, visual spatial, recall, intact orientation. vascular type of impairment. Diagnostics Vital Signs (24Hr): Vital Signs - 24 hr 06/12/25 20:26 06/13/25 08:15 Temperature 98.1 F 97.3 F Pulse Rate 65 89 Respiratory Rate 15 16 Blood Pressure 108/58 L 135/73 Pulse Oximetry 95 96 Oxygen Delivery Method Room Air BMI result Body Mass Index 24.4 Labs 06/08/25 13:47 06/10/25 16:56 Medications Medications Current Medications Acetaminophen (Acetaminophen 325 Mg Tablet) 650 mg PO Q6H PRN PRN Reason: Headache/Pain, Scale 1-10 Al Hydroxide/Mg Hydroxide (Magnesium Hydrox/Alum Hydrox 30 Ml Oral.Susp) 30 ml PO Q6H PRN PRN Reason: Heartburn/Nausea Ascorbic Acid (Ascorbic Acid 500 Mg Tablet) 1,000 mg PO DAILY [facility] Last Admin: 06/13/25 09:07 Dose: 1,000 mg Aspirin (Aspirin Enteric Coated 81 Mg Tablet.) 81 mg PO DAILY [facility] Last Admin: 06/13/25 09:09 Dose: 81 mg Atorvastatin Calcium (Atorvastatin Calcium 40 Mg Tablet) 40 mg PO BEDTIME [facility] Last Admin: 06/12/25 20:27 Dose: 40 mg Cyanocobalamin (Cyanocobalamin (Vitamin B-12) 1,000 Mcg Tablet) 1,000 mcg PO DAILY [facility] Last Admin: 06/13/25 09:09 Dose: 1,000 mcg Duloxetine HCl (Duloxetine Hcl 20 Mg Capsule.) 20 mg PO .[facility] Duloxetine HCl (Duloxetine Hcl 60 Mg Capsule.) 60 mg PO DAILY [facility] Last Admin: 06/13/25 09:08 Dose: 60 mg Finasteride (Finasteride 5 Mg Tablet) 5 mg PO DAILY [facility] Last Admin: 06/13/25 09:10 Dose: 5 mg Hydroxyzine HCl (Hydroxyzine Hcl 25 Mg Tablet) 25 mg PO Q6H PRN PRN Reason: mild anxiety Lorazepam (Lorazepam 0.5 Mg Tablet) 0.5 mg PO BID PRN PRN Reason: Anxiety Magnesium Hydroxide (Milk Of Magnesia 30 Ml Oral.Susp) 30 ml PO DAILY PRN PRN Reason: Constipation Magnesium Oxide (Magnesium Oxide 400 Mg Tablet) 400 mg PO DAILY [facility] Last Admin: 06/13/25 09:09 Dose: 400 mg Methenamine Hippurate (Methenamine Hippurate 1 Gm Tablet) 1 gm PO BID [facility] Last Admin: 06/13/25 09:10 Dose: 1 gm Mirtazapine (Mirtazapine 15 Mg Tablet) 45 mg PO BEDTIME [facility] Last Admin: 06/12/25 20:28 Dose: 45 mg Non-Formulary Medication (Trimethoprim) 100 mg PO DAILY [facility] Omeprazole (Omeprazole 20 Mg Capsule.) 20 mg PO DAILY@0630 [facility] Last Admin: 06/13/25 05:52 Dose: 20 mg Risperidone (Risperidone 0.5 Mg Tablet) 0.5 mg PO DAILY [facility] Last Admin: 06/13/25 09:10 Dose: 0.5 mg Tolterodine Tartrate (Tolterodine Tartrate La 4 Mg Cap.Er.24h) 4 mg PO DAILY [facility] Last Admin: 06/13/25 09:10 Dose: 4 mg Trazodone HCl (Trazodone Hcl 50 Mg Tablet) 50 mg PO BEDTIME MRX1 PRN PRN Reason: Insomnia Allergies Allergies Allergy/AdvReac Type Severity Reaction Status Date / Time No Known Allergies Allergy Verified 06/08/25 13:34 Assessment & Plan Assessment & Plan (1) MDD (major depressive disorder), recurrent episode, moderate: Status: Acute Code(s): F33.1 - Major depressive disorder, recurrent, moderate (2) CKD (chronic kidney disease) stage 3, GFR 30-59 ml/min: Status: Acute Code(s): N18.30 - Chronic kidney disease, stage 3 unspecified (3) Lower urinary tract symptoms: Status: Acute Code(s): R39.9 - Unspecified symptoms and signs involving the genitourinary system (4) Chronic anemia: Status: Acute Code(s): D64.9 - Anemia, unspecified (5) Chronic bacteriuria: Status: Acute Code(s): R82.71 - Bacteriuria (6) Cognitive impairment: Status: Acute Code(s): R41.89 - Other symptoms and signs involving cognitive functions and awareness Assessment and Plan: ACL 3.6 on 06/13/25 MOCA 17/30 on 06/13/25 Plan HPI: Patient is a 85-year-old , White, [place]o speaking male with medical history of depression, anxiety, CKD stage 3, anemia, 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 No SI/HI. discussed risks, benefits and alternative treatment. . Hospital course: 06/09/25: continue with current home meds.Patient does not wish to have medication changes at this time. Ativan 0.5mg BID PRN for severe anxiety Remeron 45mg daily at HS for depresion/insomnia Cymbalta 60mg in the AM and 20mg at HS for depression Risperidone 0.5mg daily for severe anxiety Trimethoprin 100mg daily: pending. Need to verify if we have it available. Tolterodine 4mg daily for overactive bladder. Methanamine 1grm BID for UTI. 06/10 creatinine clearance in the ED is less than 30, concern in terms of excretion of duloxetine which has recently been increased. pt declined labs today and unclear if BUN/Cr si trending down or up. pt explained reason for labs now as seems his baseline creatinine is 1.7 and in the ED 1.9 with elevated specific gravity. He has been seen eating and drinking here on the unit but it still concern in terms of not knowing how renal function is treding. will decrease for now duloxetine to 20mg po BID. pending collateral information from OP prescriber Kasia Fontenot. continue remeron 45mg po qhs. ativan and risperidone. pending cognitive/memory assessments, I do suspect underlying cognitive disorder. 06/13- less depressed, no SI/HI. ACL 3.6 and MOCA impairments in visuo spatial/executive function, recall with intact orientation. functional cognition is very impaired in terms of his ability to problem solve, planning. taking medications. renal function improved. Reason for continued inpatient stay Substantial Risk for: inability to function Time Spent With Patient Time: Total time managing care of this patient today ____ minutes.
[2025-06-13 19:55] VITALS: BP 130/66; PULSE 75; RESP 16; TEMP 36.6; O2SAT 95
[2025-06-14 08:00] VITALS: BP 151/69; PULSE 99; RESP 16; TEMP 36.6; O2SAT 93
--- NOTE | 2025-06-14 09:28 | PM.PSYDC ---
DS: Providers Provider Date of Service: 06/14/25 Date of admission: 06/09/25 11:47 Date of discharge: 06/14/25 Primary care physician: Shane Summers MD DS: Diagnosis Discharge Diagnosis (1) MDD (major depressive disorder), recurrent episode, moderate: Status: Acute (2) CKD (chronic kidney disease) stage 3, GFR 30-59 ml/min: Status: Acute (3) Lower urinary tract symptoms: Status: Acute (4) Chronic anemia: Status: Acute (5) Chronic bacteriuria: Status: Acute (6) Cognitive impairment: Status: Acute DS: Medications Discharge Medications Home Medications: Home Medications ?Medication ?Instructions ?Recorded ?Confirmed aspirin 81 mg tablet,delayed 81 mg PO DAILY 05/07/23 06/08/25 release lorazepam 0.5 mg tablet 0.5 mg PO BID PRN Anxiety 05/07/23 06/09/25 risperidone 0.5 mg tablet 0.5 mg PO BEDTIME 05/07/23 06/08/25 cyanocobalamin (vitamin B-12) 1,000 mcg PO DAILY 05/10/25 06/08/25 1,000 mcg capsule mirtazapine 30 mg tablet 30 mg PO BEDTIME 05/10/25 06/09/25 magnesium aspart,citrate,oxide 400 mg PO DAILY 05/30/25 06/08/25 duloxetine 20 mg capsule,delayed 20 mg PO BEDTIME 06/08/25 06/08/25 release duloxetine 60 mg capsule,delayed 60 mg PO DAILY 06/09/25 06/09/25 release mirtazapine 15 mg tablet (Remeron) 15 mg PO BEDTIME 06/09/25 06/09/25 pantoprazole 40 mg tablet,delayed 40 mg PO DAILY@0630 06/09/25 06/09/25 release Previous Rx's ?Medication ?Instructions ?Recorded solifenacin 5 mg tablet 5 mg PO DAILY 90 days #90 tabs 01/25/25 finasteride 5 mg tablet 5 mg PO DAILY 90 days #90 tabs 03/04/25 methenamine hippurate 1 gram tablet 1 g PO BID 90 days #180 tabs 03/04/25 trimethoprim 100 mg tablet 100 mg PO DAILY 90 days #90 tabs 03/04/25 atorvastatin 40 mg tablet 40 mg PO BEDTIME #90 tabs 04/18/25 Mental Status Exam Mental Status Exam Narrative: Appearance: wearing hospital gown, fair hygiene, in NAD Behavior: calm, cooperative Psychomotor: some resting tremor Speech: mostly clear, some delayed in response as he has difficulty finding words, spontaneous TP: mostly linear, at times tangential TC: feeling sad Mood: sad Affect: brightens at times, tearful when talking about the dog. SI: denies HI: denies VH/AH: none Delusions: none Insight/judgment: fair x 2. memory/cog: alert, oriented to place, month, year, seems to be confused at times as to why he is admitted and not going home. ACL 3.4, MOCA with impairments in executive function, visual spatial, recall, intact orientation. vascular type of impairment. Data Data Completed and Pending Completed studies during hospitalization [Text1]: 06/08/25 06/08/25 06/08/25 13:47 14:23 15:20 WBC 10.0 RBC 4.14 L Hgb 12.7 L Hct 38.4 L MCV 92.8 MCH 30.7 MCHC 33.1 RDW 13.6 Plt Count 253 MPV 9.6 Immature Gran % (Auto) 0.4 Neut % (Auto) 78.4 H Lymph % (Auto) 14.2 L Snyder % (Auto) 6.3 Eos % (Auto) 0.4 Baso % (Auto) 0.3 Lymph # (Auto) 1.4 Snyder # (Auto) 0.6 Eos # (Auto) 0.0 Baso # (Auto) 0.0 Abs Immat Gran (auto) 0.04 H Absolute Neuts (auto) 7.8 Absolute Nucleated RBC 0.000 Nucleated RBC % (auto) 0.0 Sodium 140 Potassium 4.4 Chloride 110 H Carbon Dioxide 23 Anion Gap 11 L BUN 20 H Creatinine 1.94 H Estim Creat Clear Calc 26.5 Estimated GFR 33 Random Glucose 126 H Estimat Average Glucose Hemoglobin A1c % Calcium 11.1 H Magnesium 2.5 Total Bilirubin 0.5 Direct Bilirubin 0.2 AST 22 ALT 17 Alkaline Phosphatase 70 Total Protein 7.0 Albumin 4.5 Triglycerides Cholesterol LDL Cholesterol, Calc HDL Cholesterol PTH Intact Urine Color Straw Urine Appearance Cloudy Urine pH 6.5 Ur Specific [place] >= 1.030 H Urine Protein 300 (3+) H Urine Glucose (UA) Negative Urine Ketones Trace Urine Blood Large (3+) H Urine Nitrite Positive H Ur Leukocyte Esterase Moderate (2+) H Urine RBC 3-5 H Urine WBC 11-20 Ur Squamous Epith Cells 3-5 Other Crystals Present Urine Bacteria 4+ Hyaline Casts 0-2 Granular Casts Present Urine Opiates Screen Not Detected Ur Buprenorphine Scrn Not Detected Ur Oxycodone Screen Not Detected Urine Methadone Screen Not Detected Urine Fentanyl Screen Not Detected Ur Barbiturates Screen Not Detected Ur Phencyclidine Scrn Not Detected Ur Amphetamines Screen Not Detected U Benzodiazepines Scrn Not Detected Urine Cocaine Screen Not Detected U Marijuana (THC) Screen Not Detected Ethyl Alcohol 12 Influenza Type A (PCR) NEGATIVE Influenza Type B (PCR) NEGATIVE RSV RNA Qual (PCR) NEGATIVE SARS-CoV-2 RNA (RT-PCR) NEGATIVE 06/10/25 06/10/25 06/10/25 16:56 16:56 16:56 WBC RBC Hgb Hct MCV MCH MCHC RDW Plt Count MPV Immature Gran % (Auto) Neut % (Auto) Lymph % (Auto) Snyder % (Auto) Eos % (Auto) Baso % (Auto) Lymph # (Auto) Snyder # (Auto) Eos # (Auto) Baso # (Auto) Abs Immat Gran (auto) Absolute Neuts (auto) Absolute Nucleated RBC Nucleated RBC % (auto) Sodium Cancelled 138 Potassium Cancelled 4.5 Chloride Cancelled Carbon Dioxide Anion Gap BUN Creatinine Estim Creat Clear Calc Estimated GFR Random Glucose Estimat Average Glucose Hemoglobin A1c % Calcium Magnesium Total Bilirubin Direct Bilirubin AST ALT Alkaline Phosphatase Total Protein Albumin Triglycerides Cholesterol LDL Cholesterol, Calc HDL Cholesterol PTH Intact Urine Color Urine Appearance Urine pH Ur Specific [place] Urine Protein Urine Glucose (UA) Urine Ketones Urine Blood Urine Nitrite Ur Leukocyte Esterase Urine RBC Urine WBC Ur Squamous Epith Cells Other Crystals Urine Bacteria Hyaline Casts Granular Casts Urine Opiates Screen Ur Buprenorphine Scrn Ur Oxycodone Screen Urine Methadone Screen Urine Fentanyl Screen Ur Barbiturates Screen Ur Phencyclidine Scrn Ur Amphetamines Screen U Benzodiazepines Scrn Urine Cocaine Screen U Marijuana (THC) Screen Ethyl Alcohol Influenza Type A (PCR) Influenza Type B (PCR) RSV RNA Qual (PCR) SARS-CoV-2 RNA (RT-PCR) 06/10/25 06/10/25 06/10/25 16:56 16:56 16:56 WBC RBC Hgb Hct MCV MCH MCHC RDW Plt Count MPV Immature Gran % (Auto) Neut % (Auto) Lymph % (Auto) Snyder % (Auto) Eos % (Auto) Baso % (Auto) Lymph # (Auto) Snyder # (Auto) Eos # (Auto) Baso # (Auto) Abs Immat Gran (auto) Absolute Neuts (auto) Absolute Nucleated RBC Nucleated RBC % (auto) Sodium Potassium Chloride 108 Carbon Dioxide Cancelled 22 Anion Gap Cancelled 13 BUN Cancelled Creatinine Estim Creat Clear Calc Estimated GFR Random Glucose Estimat Average Glucose Hemoglobin A1c % Calcium Magnesium Total Bilirubin Direct Bilirubin AST ALT Alkaline Phosphatase Total Protein Albumin Triglycerides Cholesterol LDL Cholesterol, Calc HDL Cholesterol PTH Intact Urine Color Urine Appearance Urine pH Ur Specific [place] Urine Protein Urine Glucose (UA) Urine Ketones Urine Blood Urine Nitrite Ur Leukocyte Esterase Urine RBC Urine WBC Ur Squamous Epith Cells Other Crystals Urine Bacteria Hyaline Casts Granular Casts Urine Opiates Screen Ur Buprenorphine Scrn Ur Oxycodone Screen Urine Methadone Screen Urine Fentanyl Screen Ur Barbiturates Screen Ur Phencyclidine Scrn Ur Amphetamines Screen U Benzodiazepines Scrn Urine Cocaine Screen U Marijuana (THC) Screen Ethyl Alcohol Influenza Type A (PCR) Influenza Type B (PCR) RSV RNA Qual (PCR) SARS-CoV-2 RNA (RT-PCR) 06/10/25 06/10/25 06/10/25 16:56 16:56 16:56 WBC RBC Hgb Hct MCV MCH MCHC RDW Plt Count MPV Immature Gran % (Auto) Neut % (Auto) Lymph % (Auto) Snyder % (Auto) Eos % (Auto) Baso % (Auto) Lymph # (Auto) Snyder # (Auto) Eos # (Auto) Baso # (Auto) Abs Immat Gran (auto) Absolute Neuts (auto) Absolute Nucleated RBC Nucleated RBC % (auto) Sodium Potassium Chloride Carbon Dioxide Anion Gap BUN 31 H Creatinine Cancelled 1.64 H Estim Creat Clear Calc Cancelled 31.3 Estimated GFR Cancelled Random Glucose Estimat Average Glucose Hemoglobin A1c % Calcium Magnesium Total Bilirubin Direct Bilirubin AST ALT Alkaline Phosphatase Total Protein Albumin Triglycerides Cholesterol LDL Cholesterol, Calc HDL Cholesterol PTH Intact Urine Color Urine Appearance Urine pH Ur Specific [place] Urine Protein Urine Glucose (UA) Urine Ketones Urine Blood Urine Nitrite Ur Leukocyte Esterase Urine RBC Urine WBC Ur Squamous Epith Cells Other Crystals Urine Bacteria Hyaline Casts Granular Casts Urine Opiates Screen Ur Buprenorphine Scrn Ur Oxycodone Screen Urine Methadone Screen Urine Fentanyl Screen Ur Barbiturates Screen Ur Phencyclidine Scrn Ur Amphetamines Screen U Benzodiazepines Scrn Urine Cocaine Screen U Marijuana (THC) Screen Ethyl Alcohol Influenza Type A (PCR) Influenza Type B (PCR) RSV RNA Qual (PCR) SARS-CoV-2 RNA (RT-PCR) 06/10/25 06/10/25 06/10/25 16:56 16:56 16:56 WBC RBC Hgb Hct MCV MCH MCHC RDW Plt Count MPV Immature Gran % (Auto) Neut % (Auto) Lymph % (Auto) Snyder % (Auto) Eos % (Auto) Baso % (Auto) Lymph # (Auto) Snyder # (Auto) Eos # (Auto) Baso # (Auto) Abs Immat Gran (auto) Absolute Neuts (auto) Absolute Nucleated RBC Nucleated RBC % (auto) Sodium Potassium Chloride Carbon Dioxide Anion Gap BUN Creatinine Estim Creat Clear Calc Estimated GFR 40 Random Glucose Cancelled 101 Estimat Average Glucose 114 Hemoglobin A1c % 5.6 Calcium Cancelled 11.3 H Magnesium Total Bilirubin Cancelled Direct Bilirubin AST ALT Alkaline Phosphatase Total Protein Albumin Triglycerides Cholesterol LDL Cholesterol, Calc HDL Cholesterol PTH Intact Urine Color Urine Appearance Urine pH Ur Specific [place] Urine Protein Urine Glucose (UA) Urine Ketones Urine Blood Urine Nitrite Ur Leukocyte Esterase Urine RBC Urine WBC Ur Squamous Epith Cells Other Crystals Urine Bacteria Hyaline Casts Granular Casts Urine Opiates Screen Ur Buprenorphine Scrn Ur Oxycodone Screen Urine Methadone Screen Urine Fentanyl Screen Ur Barbiturates Screen Ur Phencyclidine Scrn Ur Amphetamines Screen U Benzodiazepines Scrn Urine Cocaine Screen U Marijuana (THC) Screen Ethyl Alcohol Influenza Type A (PCR) Influenza Type B (PCR) RSV RNA Qual (PCR) SARS-CoV-2 RNA (RT-PCR) 06/10/25 06/10/25 06/10/25 16:56 16:56 16:56 WBC RBC Hgb Hct MCV MCH MCHC RDW Plt Count MPV Immature Gran % (Auto) Neut % (Auto) Lymph % (Auto) Snyder % (Auto) Eos % (Auto) Baso % (Auto) Lymph # (Auto) Snyder # (Auto) Eos # (Auto) Baso # (Auto) Abs Immat Gran (auto) Absolute Neuts (auto) Absolute Nucleated RBC Nucleated RBC % (auto) Sodium Potassium Chloride Carbon Dioxide Anion Gap BUN Creatinine Estim Creat Clear Calc Estimated GFR Random Glucose Estimat Average Glucose Hemoglobin A1c % Calcium Magnesium Total Bilirubin 0.4 Direct Bilirubin AST Cancelled 26 ALT Cancelled 17 Alkaline Phosphatase Cancelled Total Protein Albumin Triglycerides Cholesterol LDL Cholesterol, Calc HDL Cholesterol PTH Intact Urine Color Urine Appearance Urine pH Ur Specific [place] Urine Protein Urine Glucose (UA) Urine Ketones Urine Blood Urine Nitrite Ur Leukocyte Esterase Urine RBC Urine WBC Ur Squamous Epith Cells Other Crystals Urine Bacteria Hyaline Casts Granular Casts Urine Opiates Screen Ur Buprenorphine Scrn Ur Oxycodone Screen Urine Methadone Screen Urine Fentanyl Screen Ur Barbiturates Screen Ur Phencyclidine Scrn Ur Amphetamines Screen U Benzodiazepines Scrn Urine Cocaine Screen U Marijuana (THC) Screen Ethyl Alcohol Influenza Type A (PCR) Influenza Type B (PCR) RSV RNA Qual (PCR) SARS-CoV-2 RNA (RT-PCR) 06/10/25 06/10/25 06/10/25 16:56 16:56 16:56 WBC RBC Hgb Hct MCV MCH MCHC RDW Plt Count MPV Immature Gran % (Auto) Neut % (Auto) Lymph % (Auto) Snyder % (Auto) Eos % (Auto) Baso % (Auto) Lymph # (Auto) Snyder # (Auto) Eos # (Auto) Baso # (Auto) Abs Immat Gran (auto) Absolute Neuts (auto) Absolute Nucleated RBC Nucleated RBC % (auto) Sodium Potassium Chloride Carbon Dioxide Anion Gap BUN Creatinine Estim Creat Clear Calc Estimated GFR Random Glucose Estimat Average Glucose Hemoglobin A1c % Calcium Magnesium Total Bilirubin Direct Bilirubin AST ALT Alkaline Phosphatase 71 Total Protein Cancelled 7.6 Albumin Cancelled 4.7 Triglycerides 146 Cholesterol 141 LDL Cholesterol, Calc 62 HDL Cholesterol 50 PTH Intact 174.2 H Urine Color Urine Appearance Urine pH Ur Specific [place] Urine Protein Urine Glucose (UA) Urine Ketones Urine Blood Urine Nitrite Ur Leukocyte Esterase Urine RBC Urine WBC Ur Squamous Epith Cells Other Crystals Urine Bacteria Hyaline Casts Granular Casts Urine Opiates Screen Ur Buprenorphine Scrn Ur Oxycodone Screen Urine Methadone Screen Urine Fentanyl Screen Ur Barbiturates Screen Ur Phencyclidine Scrn Ur Amphetamines Screen U Benzodiazepines Scrn Urine Cocaine Screen U Marijuana (THC) Screen Ethyl Alcohol Influenza Type A (PCR) Influenza Type B (PCR) RSV RNA Qual (PCR) SARS-CoV-2 RNA (RT-PCR) 06/08/25 15:20 Urine clean catch - Clean Catch Midstream Urine Culture - Final DS: Summary Hospital Course Hospital Course: Per ED and care team note: Patient is a 85-year-old , White, Irish speaking male with medical history of depression, anxiety, CKD stage 3, anemia, chronic bacteria on methenamine presents to the ED due to increased depression and anxiety ,and helplessness the past 4 weeks secondary to increased life stressors which have impacted patient's ability to attend to ADL' s. Pt reports that things have gone down hill since December 2024 when his underwent open heart surgery. Patient has found it hard to adjust with his being ill within the home, having her caretakers come and go , addressing his own medical issues and recently coming to realization he may have to put down his dog soon after a tumor was found; I'm not in a good place . On S1: Meet with patient in assigned room for psychiatric evaluation. Patient states reason for this admission is I just have a lot of things that happened that got to me . Patient states that his has not been feeling good. She went through therapy and I was worrying about her. Patient adds that a little dog that he has for 7-8 years he got tumor. He is my akshat and that patient does everything with the dog. Patient also states that I do not like the winter. I do not like the cold, snow and Brynn . When asked any specifce past event happened that made him feel that way during this season, patient denies any triggers and states that it has been like that so many years. In addition, patient states that on going with medical appointments about his health. All of that makes him depressed and anxious and feeling like get pulled to many directions . Patient also says he has been up crying a couple times about his dog.Report sleep and appetite are ok . Goals is to get through all of it . Patient does not feel he wants to be here longer than 3 days. HOSPITAL COURSE On the unit, pt was admitted on a sect 12b as he did not seem to fully understand why he was here on the unit and was also asking to be discharged soon despite initially asking to come to the unit for treatment. Pt reports several stressors at home including caring for his whose health is deteriorating. He also presented as tearful talking about his dog that . He did not know medications he was on. He was oriented to place, month, and year. We discussed risks, benefits and alternative treatment options, he has been on duloxetine which recently was increased to 60mg po daily and 20mg po qhs. He also has risperidone 0.5mg po qhs. He also has remeron 45mg po qhs. He had prn ativan. He gradually presented as calmer, less tearful and reported feeling fine and ready to go. The only medication change that was done was decrease in duloxetine to 30mg po BID due to creatinine clearance of less than 30. This manual writer spoke with patient's prescriber Kasia Alexander who reports she is not sure as to what other medications he has been on in the past as he has been with her for the past 5 years and he came on these medications. Given that patient wanted to go and there were no imminent safety concerns, no further medication changes were made. Collateral information was also gathered from his daughter, Amrik who reports prior to coming to the hospital, pt was in bed, tearful, oversleeping and depressed. Daughter reports he seems in better mood than she has seen in a long time now that he is on the unit. Cognitive assessments were completed- He scored very low on ACL 3.6, which looks at functional cognition- in terms of ability to problem solve outside of his routine, planning. MOCA with impairments in visuospatial/executive function, recall with intact orientation. I suspect that increase anxious mood at home it is also related to worsening cognition and ability to problem solve which increases given stressors. Of concern is that patient continues to drive and may not be safe to do so. Status at Discharge Cognitive/behavioral status at discharge: Pt with brighter affect. No SI/HI. Good hygiene. Sleeping and eating well. No VH/AH. No aggression towards self or others. Functional status at discharge: independent ambulation Overall status at discharge: patient is progressing back to baseline Time Spent with Patient Time attestation: Total time managing care of this patient today __45__ minutes. Time spent: Greater than 30 minutes Discharge Plan Discharge Anticipated Discharge Date/Time: 06/14/25 10:47 Patient Disposition: Home, Self-Care Discharge Diagnosis: MDD, recurrent, moderate Cognitive Impairment- vascular type. Referrals: Kasia Alexander [facility] [Other] - 07/07/25 12:30 pm Referral Note: Your next appointment with Kasia Alexander for psychiatry is scheduled for 07/07/25 at 12:30pm. Tan Orosco [facility] [Other] - 3-5 Days Referral Note: A request was made for follow up therapy appointment with your therapist. Please follow up with Zeeshan directly with any questions and for date anfd and time. [facility] 2:15 pm Referral Note: Your next appointment with your PCP is scheduled for 06/20/25 at 2:15PM. Discharge Medications: New duloxetine 30 mg Capsule,Delayed Release(Dr/Ec) 30 mg PO BID Qty: 60 0RF ascorbic acid (vitamin C) [Vitamin C] 500 mg Tablet 1,000 mg PO DAILY Qty: 30 0RF mirtazapine 45 mg tablet 45 mg PO BEDTIME Qty: 30 0RF Continued atorvastatin 40 mg tablet 40 mg PO BEDTIME Qty: 90 3RF aspirin 81 mg tablet,delayed release (DR/EC) 81 mg PO DAILY Qty: 30 0RF pantoprazole 40 mg tablet,delayed release (DR/EC) 40 mg PO DAILY@0630 Qty: 30 0RF risperidone 0.5 mg tablet 0.5 mg PO BEDTIME Qty: 30 0RF cyanocobalamin (vitamin B-12) 1,000 mcg capsule 1,000 mcg PO DAILY Qty: 30 0RF lorazepam 0.5 mg tablet 0.5 mg PO BID PRN (Reason: Anxiety) solifenacin 5 mg tablet 5 mg PO DAILY 90 Days Qty: 90 1RF finasteride 5 mg tablet 5 mg PO DAILY 90 Days Qty: 90 1RF methenamine hippurate 1 gram tablet 1 g PO BID 90 Days Qty: 180 1RF trimethoprim 100 mg tablet 100 mg PO DAILY 90 Days Qty: 90 1RF magnesium aspart,citrate,oxide 400 mg magnesium capsule 400 mg PO DAILY Discontinued duloxetine 20 mg capsule,delayed release(DR/EC) 20 mg PO BEDTIME mirtazapine [Remeron] 15 mg tablet 15 mg PO BEDTIME Rx Instructions: Taken with 30mg tab for TDD 45mg at bedtime. duloxetine 60 mg capsule,delayed release(DR/EC) 60 mg PO DAILY mirtazapine 30 mg tablet 30 mg PO BEDTIME Rx Instructions: Taken with 15mg tab for TDD 45mg at bedtime. Discharge Orders: Discharge Order (Routine); Ordered 06/14/25 Ordered By: Latoya Zepeda Diet: Regular diet Activity on Discharge: As tolerated Stand Alone Forms: Patient Portal Discharge page Print Language: Irish Care Plan Goals: 1. maintain mood 2. No SI/HI 3. No aggression towards self or others. Health Concerns: Follow up with PCP for routine care Plan of Treatment: 1. May need assistance with medication management 2. Go to nearest ED or call 911 in event of emergency Assessment: Pt with brighter affect. No SI/HI. No psychosis or delusional content noted or reported. Sleeping and eating well. Discharge Date/Time: 06/14/25 16:19
[2025-06-14] MEDS: Aspirin Enteric Coated 81 MG TABLET.DR PO (09:34)
== END 2025-06-14 16:19 | disposition home or self-care (01) | DRG 885 ==
LOC: HO.ED 06-09 13:26 → HO.PGERI 06-09 13:55
PROVIDERS: Physician Assistant; Admitting Provider Social Worker; Emergency Provider Student in an Organized Health Care Education/Training Program; PCP Internal Medicine; Visit Provider Social Worker
DX: F33.1 Major depressive disorder, recurrent, moderate (principal); N18.30 Chronic kidney disease, stage 3 unspecified; D63.1 Anemia in chronic kidney disease; F41.9 Anxiety disorder, unspecified; E21.0 Primary hyperparathyroidism; E78.5 Hyperlipidemia, unspecified; K21.9 Gastro-esophageal reflux disease without esophagitis; K59.00 Constipation, unspecified; N32.81 Overactive bladder; Z20.822 Contact with and (suspected) exposure to COVID-19; Z87.891 Personal history of nicotine dependence; Z79.2 Long term (current) use of antibiotics; Z79.82 Long term (current) use of aspirin; Z79.899 Other long term (current) drug therapy
CPT/HCPCS: 36415; 80048; 80053; 80061; 80076; 80307; 81001; 83036; 83735; 83970; 85025; 87086; 87637; 93005; 99285; S9485

== ENCOUNTER → 2025-06-08 18:50 | Outpatient (BNV) | payer MEDICARE, OTHER, SELFPAY | PROVIDERS: Admitting Provider Social Worker; Emergency Provider Student in an Organized Health Care Education/Training Program; PCP Internal Medicine; Visit Provider Internal Medicine | DX: I49.1 Atrial premature depolarization (principal); I49.3 Ventricular premature depolarization; I45.10 Unspecified right bundle-branch block | CPT/HCPCS: 93010 ==

== ENCOUNTER → 2025-06-09 11:47 | Outpatient (BNV) | payer MEDICARE, OTHER, SELFPAY | PROVIDERS: Admitting Provider Social Worker; Emergency Provider Student in an Organized Health Care Education/Training Program; PCP Internal Medicine; Visit Provider Nurse Practitioner Family | DX: N18.30 Chronic kidney disease, stage 3 unspecified (principal); E21.0 Primary hyperparathyroidism | CPT/HCPCS: 99221 ==

== ENCOUNTER → 2025-06-09 11:47 | Outpatient (BNV) | payer MEDICARE, OTHER, SELFPAY | PROVIDERS: Admitting Provider Social Worker; Emergency Provider Student in an Organized Health Care Education/Training Program; PCP Internal Medicine; Visit Provider Psychiatry & Neurology Forensic Psychiatry | DX: F33.1 Major depressive disorder, recurrent, moderate (principal); N18.30 Chronic kidney disease, stage 3 unspecified; R39.9 Unspecified symptoms and signs involving the genitourinary system; D64.9 Anemia, unspecified; R82.71 Bacteriuria | CPT/HCPCS: 90792; 99232 ==

== ENCOUNTER 2025-06-20 14:09 | Outpatient (AMB) | payer MEDICARE, OTHER, SELFPAY ==
[2025-06-20 14:13] VITALS: BP 136/69; PULSE 98; RESP 16; TEMP 36.7; O2SAT 96; BMI 24.5
--- NOTE | 2025-06-20 14:13 | A.OFFPC_ITS ---
Vital Signs 06/20/25 14:13 Height 5 ft 8.74 in Weight 165 lb BMI 24.5 BP 136/69 Blood Pressure Location Lt brachial Position Sitting Respiration 16 Pulse 98 Pulse Source Pulse Oximeter Temp 98.0 F Temp Source Temporal Artery Scan Pulse Oximetry (%) 96 Oxygen Delivery Method Room Air Intake Visit Reasons: Discharge follow up Voip Engineer Required: No Accompanied by: Daughter Allergies No Known Allergies Allergy (Verified 06/20/25 14:14) Tobacco use date assessed: 04/18/25 Dental Screening Dental Screen Date: 04/18/25 HPI HPI Comments History of Present Illness Details History of Present Illness - The patient is an 85 year old individu al presenting for follow-up after a recent hospitalization for depression and anxiety. - The patient presented to the emergency room on June 16 after feeling overwhelmed by multiple recent stressors, including numerous doctor calls and the of a pet. - Following the ER visit, the patient wa s admitted to the geriatric behavioral pod at [facility]. - During the hospitalization, Vimal and MoCA assessments were performed, which raised concerns about the patient's executive functioning and short-term memory. - The hospital staff identified the juanito ent as a fall risk and recommended against driving, cooking, and using the stairs to the basement. - They also suggested increasing in-home assistance from one day a week to at least three times a week and provided information about the PACE program. - The patient's medical history is notab le for glaucoma, chronic kidney disease, and a bladder problem. - The patient had a skin biopsy in [facility] and has a follow-up appointment with a upholstery bundler next month. - The patient denies any history of fall s, though the daughter reports observing unsteadiness. - There have been recent issues with med ication management, with the patient taking some medications at incorrect times. Social History - The patient lives at home with the pat vonnie's . - The patient's daughter is actively inv olved in care. - The patient's handles cooking, bi lls, and online grocery ordering. - The patient is not computer literate. - Assistance is currently in the home on e day a week. - Functional Status: The patient reports being able to walk, run, and use stairs without difficulty. - The patient expresses significant dist ress over the loss of independence, particularly regarding driving and performing daily chores like laundry. - The recent of the patient's dog, who was a close machine heddle cleaner, was a significant emotional stressor. Results - Neuropsychological Testing: Per willy freeman's report of recent hospitalization, Vimal and MoCA assessments were performed and results were concerning for deficits in executive functioning and short-term memory. [facility] Medical History Chronic anemia CKD (chronic kidney disease) stage 3, GFR 30-59 ml/min Atypical pigmented skin lesion Chronic bacteriuria Family History Mother Hx of heart bypass surgery Father Throat cancer Social History Household Members: Spouse Housing: House Do you presently have visiting nurse or other home services: No Alcohol intake: former Comment: on 15 minute checks Patient Tobacco Use Status: Former Tobacco user service: Yes ([employer] for four years; honorable discharge) Current occupational status: retired Sexual orientation: Straight/Heterosexual Cognitive needs: No Hearing needs: No Vision needs: Yes (reading glases/cheaters) Questionnaire PHQ-9 Over the last 2 weeks, how often have you been bothered by any of the following problems? 1. Little interest or pleasure in doing things: not at all 2. Feeling down, depressed, or hopeless: not at all 3. Trouble falling or staying asleep, or sleeping too much: not at all 4. Feeling tired or having little energy: not at all 5. Poor appetite or overeating: not at all 6. Feeling bad about yourself - or that you are a failure or have let yourself or your family down: not at all 7. Trouble concentrating on things, such as reading the newspaper or watching television: not at all 8. Moving or speaking so slowly that other people could have noticed. Or the opposite - being so fidgety or restless that you have been moving around a lot more than usual: not at all 9. Thoughts that you would be better off or of hurting yourself in some way: not at all Total score: 0 Depression Screening Interpretation: Negative Depression Screening Done: Yes 89015 - PHQ-9 Billing: Yes Source: Developed by Drs. Israel Campos, Little Alonso, Gallito James and colleagues, with an educational patrizia from [employer]. Thrive Questionnaire Date Thrive assessed: 04/18/25 I am a: Patient What is your living situation today?: I have a steady place to live Within the past 12 months, did the food you bought not last and you didn't have the money to get more?: Never true Within the past 12 months, did you worry whether your food would run out before you got money to buy more?: Never true Do you have trouble paying for medicines?: No Do you have trouble getting transportation to medical appointments?: No Do you have trouble paying your heating and electricity bill?: No Do you have trouble taking care of your child, family member or friend?: No Do you have trouble with day-to-day activities such as bathing, preparing meals, shopping, managing finances, etc.?: No Are you currently unemployed and looking for a job?: No Are you interested in more education?: No Please select the resources that you would like help with: None THRIVE Score: 0 AUDIT C Alcohol Use Questionnaire (AUDIT-C) 1. How often do you have a drink containing alcohol?: Never 3. How often do you have six or more drinks on one occasion?: Never Total Score: 0 Score Reviewed/Action Taken: No MADHAV-7 AMB Questionnaire MADHAV-7 Date MADHAV - 7 assessed: 04/18/25 Feeling nervous, anxious, or on edge: 0 = Not at all Not being able to stop or control worryin = Not at all Worrying too much about different things: 0 = Not at all Trouble relaxin = Not at all Being so restless that it is hard to sit still: 0 = Not at all Becoming easily annoyed or irritable: 0 = Not at all Feeling afraid as if something awful might happen: 0 = Not at all Total MADHAV-7 score (0-4 normal; 5-9 mild; 10-14 moderate; 15-21 severe): 0 Source: Developed by Drs. Israel Campos, Little Alonso, Gallito James and colleagues, with an educational patrizia from [employer]. MADHAV-7 Assessment Billing MADHAV-7 Assessment Tool: MADHAV-7 Assessment 61114 Review of Systems Narrative Review of Systems - Constitutional: Reports good appetite and stable weight. - Psychiatric: Reports feeling overwhelmed, depressed, and anxious, particularly around the holidays. - Genitourinary: Reports a chronic bladder problem with difficulty urinating. - Neurological: Denies falls or balance issues; however, the patient's daughter reports unsteadiness. Denies forgetting the way back home. - Musculoskeletal: Reports ability to walk and go up and down stairs without assistance. Physical exam (Primary Care) Vital Signs: Last Vital Signs Temp 98.0 F 06/20/25 14:13 Pulse 98 06/20/25 14:13 Resp 16 06/20/25 14:13 BP 136/69 06/20/25 14:13 Pulse Ox 96 06/20/25 14:13 Oxygen Delivery Method Room Air 06/20/25 14:13 BMI result Body Mass Index 24.5 Tobacco/Smoking Status: Tobacco use Status Tobacco use date assessed 04/18/25 06/20/25 14:15 Patient Tobacco Use Status Former Tobacco user 06/20/25 14:15 PHQ-9: PHQ-9 Score PHQ-9: Total score 0 06/20/25 14:15 Depression Screening Interpretation: Negative Thrive Assessment: Date of Thrive Assessment Date Thrive assessed 04/18/25 06/20/25 14:15 Narrative Physical Exam General: Appearance normal, both eyes and all related structures Nutritional Appearance: Well nourished Orientation/consciousness: Patient oriented to year, president, and familiar people, but has short-term memory issues Limitations: Patient is considered a fall risk and has limitations with driving and using stairs Head: Normal to inspection Neck: Normal visual inspection Chest: Normal palpation of entire chest wall Respiratory: Normal respiratory effort Neurology: Patient oriented to year, president, and familiar people, but has short-term memory issues Coding Level of Care Code Complex visit Add On G2211 Diagnoses MDD (major depressive disorder), recurrent episode, moderate F33.1 Additional Codes MADHAV-7 Assessment Billing - MADHAV-7 Assessment Tool: MADHAV-7 Assessment 44310 ([id number]) PHQ-9 - 90911 - PHQ-9 Billing: Yes ([id number]) Assessment & Plan Assessment & Plan (1) MDD (major depressive disorder), recurrent episode, moderate: Code(s): F33.1 - Major depressive disorder, recurrent, moderate Category: Medical Plan Plan - Driving Safety: The patient has agreed not to drive until a formal driving evaluation is completed. - The patient's daughter will obtain the necessary form from the DMV, which will be completed to request a driving test from the state. - Fall Risk Management: A compromise was made to reduce laundry frequency to two or three times a week to limit stair use. - Medication Management: The patient's daughter will assist with preparing weekly medications to ensure adherence and correct administration, to which the patient agreed. - Mental Health: The patient will continue with psychiatric care, including an appointment with a therapist this Friday and a psychiatrist on July 07. - Follow-up: The patient will return for a follow-up appointment in one month to reassess the situation. Discussion Notes I discussed the concerns raised by the staff at [facility] regarding the patient's cognitive assessment results, specifically related to driving safety and fall risk. I acknowledged the patient???s feelings of frustration and loss of independence due to the new restrictions. I emphasized that the family's and my primary goal is prevention of harm, such as a hip fracture from a fall or an accident while driving. We reached a collaborative plan regarding driving; I proposed that a state- administered driving test would provide an objective assessment of the patient's abilities. The patient agreed to refrain from driving until the test is completed, and I instructed the daughter on how to obtain the necessary DMV form for me to complete. We also compromised on activity, agreeing to limit trips to the basement for laundry to two or three times per week rather than daily. We addressed recent medication errors, and it was agreed that the patient's daughter will now prepare the weekly medications. I advised the patient to follow the established agreements and scheduled a follow-up visit in one month. Patient Instructions - Do not drive until you have completed and passed a formal driving test. - Your daughter will get a form from the DMV for the doctor to fill out, which will lead to you getting an appointment for a driving test. - Limit going down to the basement to do laundry to two or three times per week. - Allow your daughter to help you by organizing your medications for you each week. - Keep your appointment with your therapist this Friday and your psychiatrist on July 07. - Go to your skin doctor appointment next month. - Return to this clinic for a follow-up appointment in one month.
== END 2025-06-20 14:56 | disposition home or self-care (01) ==
LOC: HO.HMCSH 14:09
PROVIDERS: PCP Internal Medicine; Visit Provider Internal Medicine
DX: F33.1 Major depressive disorder, recurrent, moderate (principal)

== ENCOUNTER → 2025-06-20 14:09 | Outpatient (BNVA) | payer MEDICARE, OTHER, SELFPAY | PROVIDERS: PCP Internal Medicine; Visit Provider Internal Medicine | DX: Z09 Encounter for follow-up examination after completed treatment for conditions other than malignant neoplasm (principal); F33.1 Major depressive disorder, recurrent, moderate; Z13.31 Encounter for screening for depression | CPT/HCPCS: 96127; 99212 ==

== ENCOUNTER 2025-06-27 10:28 | Outpatient (REF) | payer MEDICARE, OTHER, SELFPAY ==
[2025-06-27 13:49] LABS: Hematocrit 39.7 % (42.0-52.0); Hemoglobin 12.6 g/dl (14.0-18.0); Mean Corpuscular HGB Conc 31.7 g/dl (31.0-36.0); Mean Corpuscular Hemoglobin 30.0 pg (27.0-33.0); Mean Corpuscular Volume 94.5 fL (80.0-98.0); NRBC Abs Auto 0.000 X10*3/uL (0.0-0.012); NRBC Pct Auto 0.0 /100WBC (0.0-0.2); Platelet Count 268 X10*3/uL (160-400); Red Blood Count 4.20 X10*6/uL (4.60-5.80); White Blood Count 8.3 X10*3/uL (4.8-10.8)
[2025-06-27 14:06] LABS: Anion Gap 10 (12-20); Blood Urea Nitrogen 15 mg/dL (9-16); Calcium 10.8 mg/dL (8.4-10.2); Carbon Dioxide 27 mmol/L (22-29); Chloride 108 mmol/L (96-108); Estimated Glomerular Filt Rate 37; Potassium 4.6 mmol/L (3.3-5.1); Sodium 140 mmol/L (135-145)
[2025-06-27 14:30] LABS: Parathyroid Hormone Intact 168.9 pg/mL (8.7-77.1)
== END 2025-06-27 10:29 | disposition home or self-care (01) ==
LOC: HO.HMGCLDS 10:28
PROVIDERS: Internal Medicine Hypertension Specialist; PCP Internal Medicine; Referring Provider Physician Assistant Medical; Visit Provider Psychiatry & Neurology Neurology
DX: E83.52 Hypercalcemia (principal); N18.30 Chronic kidney disease, stage 3 unspecified
CPT/HCPCS: 36415; 80048; 81001; 82570; 83970; 84156; 84165; 85027; 86036

== ENCOUNTER 2025-07-04 15:10 | Outpatient (AMB) | payer MEDICARE, OTHER, SELFPAY ==
[2025-07-04 15:18] VITALS: BP 136/62; PULSE 81; O2SAT 96; BMI 25.4
--- NOTE | 2025-07-04 15:18 | HO.NEPHOV_ITS ---
Vital Signs 07/04/25 15:18 Height 5 ft 8 in Weight 167 lb BMI 25.4 BP 136/62 Blood Pressure Location Lt brachial Position Sitting Pulse 81 Pulse Source Pulse Oximeter Pulse Oximetry (%) 96 Oxygen Delivery Method Room Air Intake Visit Reasons: 5 wks f/u w/ labs Sales Office Manager Required: No Accompanied by: Spouse Allergies No Known Allergies Allergy (Verified 07/04/25 15:20) Medication List - Last Reconciled 07/04/25 by Charels Aleman MD ascorbic acid (vitamin C) (Vitamin C) 1,000 mg (2 x 500 mg) PO DAILY aspirin 81 mg PO DAILY atorvastatin 40 mg PO BEDTIME cyanocobalamin (vitamin B-12) 1,000 mcg PO DAILY duloxetine 30 mg PO BID finasteride 5 mg PO DAILY 90 days lorazepam 0.5 mg PO BID PRN magnesium aspart,citrate,oxide 400 mg PO DAILY methenamine hippurate 1 g PO BID 90 days mirtazapine 45 mg PO BEDTIME pantoprazole 40 mg PO DAILY@0630 risperidone 0.5 mg PO BEDTIME solifenacin 5 mg PO DAILY 90 days trimethoprim 100 mg PO DAILY 90 days HPI Comments Details: History of Present Illness The patient is an 85 year old male presenting for follow-up on his chronic kidney disease and hypercalcemia. His kidney function is currently at about 37 ml/mt of eGFR,, with a recent creatinine of 1.76 and an eGFR of 37 mL/min. His calcium level is 10.8 mg/dL, which is down from 11.3 mg/dL, and his parathyroid hormone is elevated. He experiences constipation, for which he takes a stool softener and a laxative. He was hospitalized in the [facility] floor for six days starting on June 13. He has a remote history of kidney stones from 20-30 years ago, which reportedly disappeared without intervention, and he has had none recently. His duloxetine dosage was recently changed from 20 mg and 60 mg to 30 mg and 30 mg, though he reports no significant change in its effect. Results - Labs: - Creatinine: 1.76 mg/dL. - eGFR: 37 mL/min. - Calcium: 10.8 mg/dL, decreased from 11.3 mg/dL. - Parathyroid hormone: Elevated. - A urine sample was collected. [facility] Medical History Chronic anemia CKD (chronic kidney disease) stage 3, GFR 30-59 ml/min Atypical pigmented skin lesion Chronic bacteriuria Family History Mother Hx of heart bypass surgery Father Throat cancer Social History Household Members: Spouse Housing: House Do you presently have visiting nurse or other home services: No Alcohol intake: former Comment: on 15 minute checks Patient Tobacco Use Status: Former Tobacco user service: Yes ([email or web address] for four years; honorable discharge) Current occupational status: retired Sexual orientation: Straight/Heterosexual Cognitive needs: No Hearing needs: No Vision needs: Yes (reading glases/cheaters) Physical Exam Exam Exam: Physical Exam General: Awake. Comfortable. HENT: Neck supple. Mucosa moist. Pulmonary: Lungs aeration equal. No rales. Cardiology: Heart S1-S2 heard. No gallop. Abdomen: Soft. Non tender. Bowel sounds normal. Neurologic: No involuntary movements. No myoclonus. Extremities: No edema. No rash. Vital Signs: Last Vital Signs Pulse 81 07/04/25 15:18 BP 136/62 07/04/25 15:18 Pulse Ox 96 07/04/25 15:18 Oxygen Delivery Method Room Air 07/04/25 15:18 BMI result Body Mass Index 25.4 Results Reviewed Nephrology Results: Hgb, (14.0-18.0) 12.6 g/dl L 06/27/25 WBC, (4.8-10.8) 8.3 X10*3/uL 06/27/25 Plt Count, (160-400) 268 X10*3/uL 06/27/25 Sodium, (135-145) 140 mmol/L 06/27/25 Potassium, (3.3-5.1) 4.6 mmol/L 06/27/25 Chloride, (96-108) 108 mmol/L 06/27/25 Carbon Dioxide, (22-29) 27 mmol/L 06/27/25 BUN, (9-16) 15 mg/dL 06/27/25 Creatinine, (0.5-1.4) 1.76 mg/dL H 06/27/25 Calcium, (8.4-10.2) 10.8 mg/dL H 06/27/25 PTH Intact, (8.7-77.1) 168.9 pg/mL H 06/27/25 Urine Protein, (Neg-Trace) See Note mg/dL 06/27/25 Urine Creatinine 194.51 mg/dL 06/27/25 Assessment & Plan Assessment & Plan (1) Hypercalcemia: Code(s): E83.52 - Hypercalcemia Category: Medical (2) CKD (chronic kidney disease) stage 3, GFR 30-59 ml/min: Code(s): N18.30 - Chronic kidney disease, stage 3 unspecified Category: Medical Plan Plan 1. Hypercalcemia /? Hyperparathyroidism - The patient's hypercalcemia is likely due to elevated parathyroid hormone. - Potential risks of high calcium include kidney stones, bone pain, constipation, and confusion. -Cinacalcet 30 mgQD will be prescribed to lower the calcium level, which may also help with his constipation and confusion. - This medication is to be taken once daily in the morning. - If the medication is not effective, a scan of the parathyroid gland and potential surgical removal would be considered, although this is a less desirable option given the patient's age. 2. 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 - Orders: Orders Basic Metabolic Panel 6 Weeks E83.52 - Hypercalcemia, N18.30 - Chronic kidney disease, stage 3 unspecified Parathyroid Hormone Intact 6 Weeks E83.52 - Hypercalcemia, N18.30 - Chronic kidney disease, stage 3 unspecified Medications: New cinacalcet (Sensipar) 30 mg PO DAILY 30 tabs 1RF Coding Level of Care Code Est Pt Level 4 (54921) Diagnoses Hypercalcemia E83.52 CKD (chronic kidney disease) stage 3, GFR 30-59 ml/min N18.30
--- OUTSIDE RECORDS SUMMARY | 2025-07-04 21:44 | XMS_ITS | Clinical Summary ---
Author Organization [facility] Address [address] [place], [place] [id number] Phone Care Team Providers Care Career Placement Specialist Name Role Phone Liam Ruiz MD Primary Care Provider [phone] Social History Tobacco Use Types Packs/Day Years [...] file Insurance MEDICARE PART A & B [facility] MEDICARE SUPPLEMENT [facility] [place] [place] [address] MEDICARE PART A & B [facility] MEDICARE SUPPLEMENT MEDICARE PART A & B [employer] MEDICARE SUPPLEMENT MEDICARE PART A & B [employer] MEDICARE SUPPLEMENT MEDICARE PART A & B [facility] MEDICARE SUPPLEMENT [facility] [place] [address] MEDICARE PART A & B [facility] MEDICARE SUPPLEMENT MEDICARE PART A & B [facility] MEDICARE SUPPLEMENT MEDICARE PART A & B [employer] SUPPLEMENT MEDICARE PART A & B [facility] MEDICARE SUPPLEMENT Care Teams Career Placement Specialist Relationship Specialty Start Date End Date Liam Ruiz MD [address] [place] [id number] PCP - General Internal Medicine 09/30/19 Additional Source Comments The information contained in this document represents components of the legal health record. It is not the complete legal health record.[facility]
== END 2025-07-04 15:35 | disposition home or self-care (01) ==
LOC: HO.HKA 15:11
PROVIDERS: PCP Internal Medicine; Visit Provider Internal Medicine Hypertension Specialist
DX: E83.52 Hypercalcemia (principal); N18.30 Chronic kidney disease, stage 3 unspecified
CPT/HCPCS: 99214

== ENCOUNTER → 2025-07-04 15:10 | Outpatient (BNVA) | payer MEDICARE, OTHER, SELFPAY | PROVIDERS: PCP Internal Medicine; Visit Provider Internal Medicine Hypertension Specialist | DX: E83.52 Hypercalcemia (principal); N18.30 Chronic kidney disease, stage 3 unspecified | CPT/HCPCS: 99212 ==